=== PATIENT | female | born 1960 | race Caucasian/White ===

== ENCOUNTER 2018-03-10 12:15 | Inpatient (IN) | payer BC ==
[2018-03-10] MEDS ORDERED: Acetaminophen/oxyCODONE 325-5 MG Tab PO ONE (12:18)
[2018-03-10] MEDS ORDERED: Acetaminophen 325 MG Tab PO PRN (13:00)
[2018-03-10] MEDS ORDERED: Docusate Sodium 100 MG Cap PO PRN (13:00)
[2018-03-10] MEDS ORDERED: Ondansetron 4 MG Tab.DIS PO PRN (13:00)
[2018-03-10] MEDS: Enoxaparin 40 MG/0.4 ML Syringe SUBCUT SCH (13:58)
[2018-03-10] MEDS: Vancomycin 1.5 GM in Sodium Chloride 0.9% 500 ML IV SCH ×2 (14:00→20:07)
[2018-03-10] MEDS: Acetaminophen/oxyCODONE 325-5 MG Tab PO PRN ×2 (16:22→20:14)
[2018-03-10] MEDS: metFORMIN 500 MG Tab PO SCH (17:21)
[2018-03-10] MEDS: Ferrous Sulfate 324 MG Tab.EC PO SCH (17:21)
[2018-03-10] MEDS: amLODIPine 2.5 MG Tab PO SCH (20:08)
[2018-03-10] MEDS: Aspirin 81 MG Tab.EC PO SCH (20:08)
--- NOTE | 2018-03-10 21:35 | PCM.HP ---
H&P History of Present Illness - General Date of Service: 03/10/18 Admit Problem/Dx: Admission Diagnosis/Problem Admission Diagnosis/Problem Knee joint operation Source of Information: Patient History Limitations: Reports: No Limitations - History of Present Illness Initial Comments - Free Text/Narative: Patient admitted swing bed from [facility] following a knee surgery. Patient was to have a total knee replacement done. Incision had been made and infection was noted in the joint. Cultures were taken and grew out staph. A spacer was placer in the knee. PICC line placed. Started on IV Vancomycin and is to continue this for 6 weeks with plans for knee replacement at a later date. Location: Reports: Lower Extremity, Left Quality: Reports: Throbbing Severity: Severe Improves with: Reports: Cold Therapy, Rest Worsens with: Reports: Movement Associated Symptoms: Reports: No Other Symptoms - Related Data Allergies/Adverse Reactions: Allergies Allergy/AdvReac Type Severity Reaction Status Date / Time No Known Allergies Allergy Verified 03/10/18 12:31 Home Medications: Home Meds ALPRAZolam [Xanax] 0.25 mg PO TID PRN 03/10/18 [History] Aspirin [Low Dose Aspirin EC] 81 mg PO BEDTIME 03/10/18 [History] Cholecalciferol (Vitamin D3) [Vitamin D3] 4,000 units PO DAILY 03/10/18 [History ] Citalopram [Citalopram HBr] 20 mg PO DAILY 03/10/18 [History] Cyanocobalamin (Vitamin B-12) [Vitamin B-12] 500 mcg PO DAILY 03/10/18 [History] Flaxseed Oil 1,000 mg PO BEDTIME 03/10/18 [History] Garlic 1,000 mg PO DAILY 03/10/18 [History] Losartan/Hydrochlorothiazide [Losartan-HCTZ 100-12.5 MG] 1 tab PO DAILY [History] Magnesium Gluconate [Magonate] 500 mg PO DAILY 03/10/18 [History] [place]-3/DHA/Epa/Fish Oil [[place] 3 500 Softgel] 1,000 mg PO BEDTIME 03/10/18 [ History] Vit A/C/E/Zinc/Selenium/Copper [Vision Formula Tablet] 1 tab PO DAILY 03/10/18 [ History] amLODIPine [Norvasc] 5 mg PO BEDTIME 03/10/18 [History] metFORMIN [Glucophage] 1,000 mg PO BIDMEALS 03/10/18 [History] oxyCODONE HCl/Acetaminophen [Percocet 5-325 mg Tablet] 1 - 2 tab PO Q4H PRN [History] Past Medical History HEENT History: Reports: Impaired Vision Cardiovascular History: Reports: Heart Murmur, Hypertension, Other (See Below) Other Cardiovascular History: aortic stenosis Gastrointestinal History: Reports: Colon Polyp Musculoskeletal History: Reports: Osteoarthritis Psychiatric History: Reports: Anxiety, Depression Endocrine/Metabolic History: Reports: Diabetes, Type II Hematologic History: Reports: Other (See Below) Other Hematologic History: Factor V Leiden - Past Surgical History GI Surgical History: Reports: Colonoscopy Female Surgical History: Reports: Breast Biopsy, D&C Musculoskeletal Surgical History: Reports: Arthroscopic Knee, Knee Replacement Social & Family History - Family History Family Medical History: Noncontributory H&P Review of Systems - Review of Systems: Review Of Systems: See Below General: Reports: Weakness, Fatigue. Denies: Fever, Chills, Malaise HEENT: Reports: No Symptoms Pulmonary: Denies: Shortness of Breath, Cough Cardiovascular: Denies: Chest Pain, Edema, Lightheadedness Gastrointestinal: Reports: Constipation (patient states was having issues with constipation, has been taking stool softener and now today has had 3 stools). Denies: Abdominal Pain, Nausea, Vomiting Genitourinary: Reports: No Symptoms Musculoskeletal: Reports: Joint Pain Skin: Reports: Other (incision to right knee, bandages intact) Psychiatric: Reports: No Symptoms Neurological: Reports: No Symptoms Exam - Exam Exam: See Below - Vital Signs Vital Signs: Last Vital Signs Temp 97.9 F 03/10/18 20:00 Pulse 97 03/10/18 20:00 Resp 20 03/10/18 20:00 BP 146/73 H 03/10/18 20:08 Pulse Ox 98 03/10/18 20:00 Weight: 232 lb 4.8 oz - Exam General: Alert, Oriented HEENT: Conjunctiva Clear, Mucosa Moist & [place], Posterior Pharynx Clear Neck: Supple Lungs: Clear to Auscultation, Normal Respiratory Effort Cardiovascular: Regular Rate, Regular Rhythm GI/Abdominal Exam: Normal Bowel Sounds, Soft, Non-Tender Extremities: Limited Range of Motion, Other (right knee has considerable swelling to the right knee) Skin: Incision Psychiatric: Alert, Normal Affect, Normal Mood - Patient Data Lab Results Last 24 hrs: Laboratory Results - last 24 hr 03/10/18 Range/Units 17:12 POC Glucose 98 (75-105) mg/dl - Problem List (1) S/P right knee surgery SNOMED Code(s): 486933513 ICD Code: Z98.890 - OTHER SPECIFIED POSTPROCEDURAL STATES Status: Acute Priority: High Current Visit: Yes Problem List Initiated/Reviewed/Updated: Yes Orders Last 24hrs: Active Orders 24 hr Category Date Time Status Patient Status [ADT] Routine ADT 03/10/18 13:00 Active Communication Order [RC] .PRN Care 03/10/18 13:00 Active Cooling Warming Measures [RC] .PRN Care 03/10/18 13:00 Active Oxygen Therapy [RC] .PRN Care 03/10/18 13:00 Active Up With Assistance [RC] .PRN Care 03/10/18 13:00 Active Vital Signs [RC] 0800,2000 Care 03/10/18 13:00 Active Wound Care [RC] Q3D Care 03/10/18 13:00 Active PT Evaluation and Treatment [CONS] Routine Cons 03/10/18 13:00 Active Consistent Carbohydrate Diet [DIET] Diet 03/10/18 Dinner Active ALPRAZolam [Xanax] Med 03/10/18 13:10 Active 0.25 mg PO TID PRN Acetaminophen [Tylenol] Med 03/10/18 13:00 Active 650 mg PO Q4H PRN Acetaminophen/oxyCODONE [Percocet 325-5 MG] Med 03/10/18 13:00 Active 2 tab PO Q4H PRN Aspirin [Halfprin] Med 03/10/18 20:00 Active 81 mg PO BEDTIME Cholecalciferol (Vitamin D3) [Vitamin D3] Med 03/11/18 08:00 Active 4,000 units PO DAILY Citalopram [Celexa] Med 03/11/18 08:00 Active 20 mg PO DAILY Cyanocobalamin (Vitamin B12) [Vitamin B12] Med 03/11/18 08:00 Active 500 mcg PO DAILY Cyclobenzaprine [Flexeril] Med 03/10/18 13:00 Active 5 mg PO TID PRN Docusate Sodium [Colace] Med 03/10/18 13:00 Active 100 mg PO DAILY PRN Enoxaparin [Lovenox] Med 03/10/18 13:00 Active 40 mg SUBCUT Q24H Ferrous Sulfate Med 03/10/18 17:30 Active 324 mg PO BIDMEALS Heparin Sodium [Heparin Lock Flush 100 Units/ML] Med 03/10/18 21:00 Active 300 units FLUSH Q8H Losartan [Cozaar] Med 03/11/18 08:00 Active 100 mg PO DAILY Magnesium Oxide Med 03/11/18 08:00 Active 500 mg PO DAILY Ondansetron [Zofran ODT] Med 03/10/18 13:00 Active 4 mg PO Q4H PRN Vancomycin 1.5 gm Med 03/10/18 13:00 Active Sodium Chloride 0.9% [Normal Saline] 500 ml IV Q8H amLODIPine [Norvasc] Med 03/10/18 20:00 Active 5 mg PO BEDTIME hydroCHLOROthiazide Med 03/11/18 08:00 Active 12.5 mg PO DAILY metFORMIN [Glucophage] Med 03/10/18 17:30 Active 1,000 mg PO BIDMEALS Ice Therapy [OM.PC] Routine Oth 03/10/18 13:00 Ordered Resuscitation Status Routine Resus Stat 03/10/18 13:00 Ordered Medication Orders Acetaminophen (Tylenol) 650 mg PO Q4H PRN PRN Reason: Pain (Mild 1-3)/fever Alprazolam (Xanax) 0.25 mg PO TID PRN PRN Reason: Anxiety Amlodipine Besylate (Norvasc) 5 mg PO BEDTIME [facility] Last Admin: 03/10/18 20:08 Dose: 5 mg Aspirin (Halfprin) 81 mg PO BEDTIME [facility]UL[facility] Last Admin: 03/10/18 20:08 Dose: 81 mg Cholecalciferol (Vitamin D3) 4,000 units PO DAILY [facility] Citalopram Hydrobromide (Celexa) 20 mg PO DAILY [facility] Cyanocobalamin (Vitamin B12) 500 mcg PO DAILY [facility] Cyclobenzaprine HCl (Flexeril) 5 mg PO TID PRN PRN Reason: Spasms Docusate Sodium (Colace) 100 mg PO DAILY PRN PRN Reason: Constipation Enoxaparin Sodium (Lovenox) 40 mg SUBCUT Q24H [facility] Last Admin: 03/10/18 13:58 Dose: 40 mg Ferrous Sulfate (Ferrous Sulfate) 324 mg PO BIDMEALS [facility] Last Admin: 03/10/18 17:21 Dose: 324 mg Heparin Sodium (Porcine) (Heparin Lock Flush 100 Units/Ml) 300 units FLUSH Q8H [facility] Last Admin: 03/10/18 20:08 Dose: 300 units Hydrochlorothiazide (Hydrochlorothiazide) 12.5 mg PO DAILY [facility] Vancomycin HCl 1.5 gm/ Sodium (Chloride) 500 mls @ 250 mls/hr IV Q8H [facility] Last Admin: 03/10/18 20:07 Dose: 250 mls/hr Admin: 03/10/18 14:00 Dose: 250 mls/hr Losartan Potassium (Cozaar) 100 mg PO DAILY [facility] Magnesium Oxide (Magnesium Oxide) 500 mg PO DAILY [facility] Metformin HCl (Glucophage) 1,000 mg PO BIDMEALS [facility] Last Admin: 03/10/18 17:21 Dose: 1,000 mg Ondansetron HCl (Zofran Odt) 4 mg PO Q4H PRN PRN Reason: nausea, able to take PO Oxycodone/Acetaminophen (Percocet 325-5 Mg) 2 tab PO Q4H PRN PRN Reason: Pain (moderate 4-6) Last Admin: 03/10/18 20:14 Dose: 2 tab Admin: 03/10/18 16:22 Dose: 2 tab Assessment/Plan Comment:: Right Knee Revision with spacer placement Plan: Physical Therapy evaluation and treatment IV Vancomycin every 8 hours Percocet for pain control
[2018-03-10] MEDS: Cyclobenzaprine 10 MG Tab PO PRN (21:43)
[2018-03-11] MEDS: Acetaminophen/oxyCODONE 325-5 MG Tab PO PRN ×6 (00:32→23:57)
[2018-03-11] MEDS: Vancomycin 1.5 GM in Sodium Chloride 0.9% 500 ML IV SCH ×4 (05:55→21:49)
[2018-03-11] MEDS: Citalopram 10 MG Tab PO SCH (08:00)
[2018-03-11] MEDS: Ferrous Sulfate 324 MG Tab.EC PO SCH ×2 (08:01→16:32)
[2018-03-11] MEDS: metFORMIN 500 MG Tab PO SCH ×2 (08:01→16:32)
[2018-03-11] MEDS: Hydrochlorothiazide 12.5 MG Cap PO SCH (08:01)
[2018-03-11] MEDS: Losartan 100 MG Tab PO SCH (08:01)
[2018-03-11] MEDS: Cholecalciferol (Vitamin D3) 1,000 Unit Tab PO SCH (08:01)
[2018-03-11] MEDS: Cyanocobalamin (Vitamin B12) 100 MCG Tab PO SCH (08:01)
[2018-03-11 13:02] LABS: CHLORIDE,CL 98 mEq/L (98-106); SODIUM,NA 134 mEq/L (136-145)
[2018-03-11] MEDS: Enoxaparin 40 MG/0.4 ML Syringe SUBCUT SCH ×2 (14:25→14:33)
[2018-03-11] MEDS: amLODIPine 2.5 MG Tab PO SCH (19:29)
[2018-03-11] MEDS: Cyclobenzaprine 10 MG Tab PO PRN (19:29)
[2018-03-11] MEDS: Aspirin 81 MG Tab.EC PO SCH (19:29)
[2018-03-12] MEDS: Acetaminophen/oxyCODONE 325-5 MG Tab PO PRN ×5 (04:04→22:11)
[2018-03-12] MEDS: Vancomycin 1.5 GM in Sodium Chloride 0.9% 500 ML IV SCH ×3 (06:35→22:08)
[2018-03-12] MEDS: Cyanocobalamin (Vitamin B12) 100 MCG Tab PO SCH (08:41)
[2018-03-12] MEDS: Citalopram 10 MG Tab PO SCH (08:42)
[2018-03-12] MEDS: Ferrous Sulfate 324 MG Tab.EC PO SCH ×2 (08:42→17:13)
[2018-03-12] MEDS: Hydrochlorothiazide 12.5 MG Cap PO SCH (08:43)
[2018-03-12] MEDS: Losartan 100 MG Tab PO SCH (08:44)
[2018-03-12] MEDS: metFORMIN 500 MG Tab PO SCH ×2 (08:45→17:12)
[2018-03-12] MEDS: Cholecalciferol (Vitamin D3) 1,000 Unit Tab PO SCH (08:45)
[2018-03-12] MEDS: Enoxaparin 40 MG/0.4 ML Syringe SUBCUT SCH (14:04)
[2018-03-12] MEDS: ALPRAZolam 0.25 MG Tab PO PRN (16:12)
[2018-03-12] MEDS: Aspirin 81 MG Tab.EC PO SCH (19:56)
[2018-03-12] MEDS: amLODIPine 2.5 MG Tab PO SCH (19:57)
[2018-03-12] MEDS: Cyclobenzaprine 10 MG Tab PO PRN (20:02)
[2018-03-13] MEDS: ALPRAZolam 0.25 MG Tab PO PRN ×2 (00:57→09:08)
[2018-03-13] MEDS: Acetaminophen/oxyCODONE 325-5 MG Tab PO PRN ×5 (05:00→23:50)
[2018-03-13] MEDS: Vancomycin 1.5 GM in Sodium Chloride 0.9% 500 ML IV SCH ×3 (06:00→21:42)
[2018-03-13] MEDS: Ferrous Sulfate 324 MG Tab.EC PO SCH ×2 (07:49→17:18)
[2018-03-13] MEDS: Losartan 100 MG Tab PO SCH (07:49)
[2018-03-13] MEDS: Citalopram 10 MG Tab PO SCH (07:49)
[2018-03-13] MEDS: metFORMIN 500 MG Tab PO SCH ×2 (07:50→17:17)
[2018-03-13] MEDS: Hydrochlorothiazide 12.5 MG Cap PO SCH (07:50)
[2018-03-13] MEDS: Cholecalciferol (Vitamin D3) 1,000 Unit Tab PO SCH (07:51)
[2018-03-13] MEDS: Cyanocobalamin (Vitamin B12) 100 MCG Tab PO SCH (07:51)
[2018-03-13] MEDS: Enoxaparin 40 MG/0.4 ML Syringe SUBCUT SCH (13:53)
[2018-03-13] MEDS: Aspirin 81 MG Tab.EC PO SCH (19:30)
[2018-03-13] MEDS: amLODIPine 2.5 MG Tab PO SCH (19:30)
[2018-03-14] MEDS: Vancomycin 1.5 GM in Sodium Chloride 0.9% 500 ML IV SCH ×3 (06:09→21:43)
[2018-03-14] MEDS: Citalopram 10 MG Tab PO SCH (07:41)
[2018-03-14] MEDS: Cyanocobalamin (Vitamin B12) 100 MCG Tab PO SCH (07:41)
[2018-03-14] MEDS: metFORMIN 500 MG Tab PO SCH ×2 (07:41→17:14)
[2018-03-14] MEDS: Losartan 100 MG Tab PO SCH (07:41)
[2018-03-14] MEDS: Cholecalciferol (Vitamin D3) 1,000 Unit Tab PO SCH (07:41)
[2018-03-14] MEDS: Ferrous Sulfate 324 MG Tab.EC PO SCH ×2 (07:42→17:00)
[2018-03-14] MEDS: Hydrochlorothiazide 12.5 MG Cap PO SCH (07:42)
[2018-03-14] MEDS: ALPRAZolam 0.25 MG Tab PO PRN ×2 (07:49→17:15)
[2018-03-14] MEDS: Acetaminophen/oxyCODONE 325-5 MG Tab PO PRN ×4 (09:39→23:05)
[2018-03-14] MEDS: Enoxaparin 40 MG/0.4 ML Syringe SUBCUT SCH (14:15)
[2018-03-14] MEDS: Aspirin 81 MG Tab.EC PO SCH (20:03)
[2018-03-14] MEDS: amLODIPine 2.5 MG Tab PO SCH (20:03)
[2018-03-14] MEDS: Cyclobenzaprine 10 MG Tab PO PRN (21:43)
[2018-03-15] MEDS: Vancomycin 1.5 GM in Sodium Chloride 0.9% 500 ML IV SCH ×3 (05:58→21:56)
[2018-03-15] MEDS: metFORMIN 500 MG Tab PO SCH ×2 (07:32→17:25)
[2018-03-15] MEDS: Cyanocobalamin (Vitamin B12) 100 MCG Tab PO SCH (07:33)
[2018-03-15] MEDS: Losartan 100 MG Tab PO SCH (07:34)
[2018-03-15] MEDS: Cholecalciferol (Vitamin D3) 1,000 Unit Tab PO SCH (07:34)
[2018-03-15] MEDS: Citalopram 10 MG Tab PO SCH (07:35)
[2018-03-15] MEDS: Hydrochlorothiazide 12.5 MG Cap PO SCH (07:35)
[2018-03-15] MEDS: Acetaminophen/oxyCODONE 325-5 MG Tab PO PRN ×3 (07:35→19:56)
[2018-03-15] MEDS: Ferrous Sulfate 324 MG Tab.EC PO SCH ×2 (07:35→17:29)
[2018-03-15 13:43] LABS: CHLORIDE,CL 99 mEq/L (98-106); SODIUM,NA 134 mEq/L (136-145)
[2018-03-15] MEDS: Enoxaparin 40 MG/0.4 ML Syringe SUBCUT SCH (14:36)
[2018-03-15] MEDS: amLODIPine 2.5 MG Tab PO SCH (19:50)
[2018-03-15] MEDS: Aspirin 81 MG Tab.EC PO SCH (19:50)
[2018-03-15] MEDS: ALPRAZolam 0.25 MG Tab PO PRN (19:55)
[2018-03-16] MEDS: Vancomycin 1.5 GM in Sodium Chloride 0.9% 500 ML IV SCH ×3 (06:05→21:47)
[2018-03-16] MEDS: Acetaminophen/oxyCODONE 325-5 MG Tab PO PRN ×3 (08:06→22:09)
[2018-03-16] MEDS: Cyanocobalamin (Vitamin B12) 100 MCG Tab PO SCH (08:07)
[2018-03-16] MEDS: Hydrochlorothiazide 12.5 MG Cap PO SCH (08:07)
[2018-03-16] MEDS: Cholecalciferol (Vitamin D3) 1,000 Unit Tab PO SCH (08:08)
[2018-03-16] MEDS: Losartan 100 MG Tab PO SCH (08:08)
[2018-03-16] MEDS: metFORMIN 500 MG Tab PO SCH ×2 (08:09→17:09)
[2018-03-16] MEDS: Citalopram 10 MG Tab PO SCH (08:09)
[2018-03-16] MEDS: Ferrous Sulfate 324 MG Tab.EC PO SCH ×2 (08:10→18:39)
[2018-03-16] MEDS: Enoxaparin 40 MG/0.4 ML Syringe SUBCUT SCH (13:37)
[2018-03-16] MEDS: ALPRAZolam 0.25 MG Tab PO PRN ×2 (13:54→22:07)
[2018-03-16] MEDS: Aspirin 81 MG Tab.EC PO SCH (19:23)
[2018-03-16] MEDS: amLODIPine 2.5 MG Tab PO SCH (19:23)
[2018-03-17] MEDS: Vancomycin 1.5 GM in Sodium Chloride 0.9% 500 ML IV SCH ×3 (05:54→22:09)
[2018-03-17] MEDS: Cholecalciferol (Vitamin D3) 1,000 Unit Tab PO SCH (07:37)
[2018-03-17] MEDS: Cyanocobalamin (Vitamin B12) 100 MCG Tab PO SCH (07:38)
[2018-03-17] MEDS: Citalopram 10 MG Tab PO SCH (07:39)
[2018-03-17] MEDS: metFORMIN 500 MG Tab PO SCH ×2 (07:39→17:25)
[2018-03-17] MEDS: Hydrochlorothiazide 12.5 MG Cap PO SCH (07:40)
[2018-03-17] MEDS: Losartan 100 MG Tab PO SCH (07:40)
[2018-03-17] MEDS: ALPRAZolam 0.25 MG Tab PO PRN ×3 (07:47→22:09)
[2018-03-17] MEDS: Ferrous Sulfate 324 MG Tab.EC PO SCH ×2 (07:47→17:25)
[2018-03-17] MEDS: Acetaminophen/oxyCODONE 325-5 MG Tab PO PRN ×4 (08:41→22:09)
[2018-03-17] MEDS: Enoxaparin 40 MG/0.4 ML Syringe SUBCUT SCH (13:09)
[2018-03-17] MEDS: Aspirin 81 MG Tab.EC PO SCH (19:39)
[2018-03-17] MEDS: amLODIPine 2.5 MG Tab PO SCH (19:39)
[2018-03-18] MEDS: Acetaminophen/oxyCODONE 325-5 MG Tab PO PRN ×4 (06:00→20:18)
[2018-03-18] MEDS: ALPRAZolam 0.25 MG Tab PO PRN ×2 (06:00→20:18)
[2018-03-18] MEDS: Vancomycin 1.5 GM in Sodium Chloride 0.9% 500 ML IV SCH ×3 (06:03→21:43)
[2018-03-18] MEDS: Cyanocobalamin (Vitamin B12) 100 MCG Tab PO SCH (08:01)
[2018-03-18] MEDS: Losartan 100 MG Tab PO SCH (08:01)
[2018-03-18] MEDS: Cholecalciferol (Vitamin D3) 1,000 Unit Tab PO SCH (08:03)
[2018-03-18] MEDS: Citalopram 10 MG Tab PO SCH (08:03)
[2018-03-18] MEDS: metFORMIN 500 MG Tab PO SCH ×2 (08:04→17:10)
[2018-03-18] MEDS: Hydrochlorothiazide 12.5 MG Cap PO SCH (08:04)
[2018-03-18] MEDS: Ferrous Sulfate 324 MG Tab.EC PO SCH ×2 (08:04→17:11)
[2018-03-18] MEDS: Enoxaparin 40 MG/0.4 ML Syringe SUBCUT SCH (13:34)
[2018-03-18] MEDS: Aspirin 81 MG Tab.EC PO SCH (19:57)
[2018-03-18] MEDS: amLODIPine 2.5 MG Tab PO SCH (19:57)
[2018-03-19] MEDS: Acetaminophen/oxyCODONE 325-5 MG Tab PO PRN ×5 (00:30→21:40)
[2018-03-19] MEDS: Vancomycin 1.5 GM in Sodium Chloride 0.9% 500 ML IV SCH ×3 (06:07→21:40)
[2018-03-19] MEDS: metFORMIN 500 MG Tab PO SCH ×2 (08:05→17:23)
[2018-03-19] MEDS: Citalopram 10 MG Tab PO SCH (08:05)
[2018-03-19] MEDS: Ferrous Sulfate 324 MG Tab.EC PO SCH ×2 (08:06→17:23)
[2018-03-19] MEDS: Losartan 100 MG Tab PO SCH (08:06)
[2018-03-19] MEDS: Hydrochlorothiazide 12.5 MG Cap PO SCH (08:07)
[2018-03-19] MEDS: Cholecalciferol (Vitamin D3) 1,000 Unit Tab PO SCH (08:07)
[2018-03-19] MEDS: Cyanocobalamin (Vitamin B12) 100 MCG Tab PO SCH (08:08)
[2018-03-19] MEDS: ALPRAZolam 0.25 MG Tab PO PRN ×2 (08:15→21:40)
[2018-03-19 13:43] LABS: CHLORIDE,CL 97 mEq/L (98-106); SODIUM,NA 135 mEq/L (136-145)
[2018-03-19] MEDS: Enoxaparin 40 MG/0.4 ML Syringe SUBCUT SCH (14:14)
[2018-03-19] MEDS: amLODIPine 2.5 MG Tab PO SCH (20:09)
[2018-03-19] MEDS: Aspirin 81 MG Tab.EC PO SCH (20:09)
[2018-03-20] MEDS: Acetaminophen/oxyCODONE 325-5 MG Tab PO PRN ×2 (04:52→10:14)
[2018-03-20] MEDS: ALPRAZolam 0.25 MG Tab PO PRN ×2 (04:52→17:01)
[2018-03-20] MEDS: Vancomycin 1.5 GM in Sodium Chloride 0.9% 500 ML IV SCH ×2 (05:00→14:08)
[2018-03-20] MEDS: Hydrochlorothiazide 12.5 MG Cap PO SCH (07:57)
[2018-03-20] MEDS: metFORMIN 500 MG Tab PO SCH (07:57)
[2018-03-20] MEDS: Losartan 100 MG Tab PO SCH (07:57)
[2018-03-20] MEDS: Citalopram 10 MG Tab PO SCH (07:57)
[2018-03-20] MEDS: Ferrous Sulfate 324 MG Tab.EC PO SCH ×2 (07:58→17:01)
[2018-03-20] MEDS: Cholecalciferol (Vitamin D3) 1,000 Unit Tab PO SCH (07:58)
[2018-03-20] MEDS: Cyanocobalamin (Vitamin B12) 100 MCG Tab PO SCH (08:00)
[2018-03-20] MEDS ORDERED: Iopamidol 755 Mg/ML 100 ML Bottle IVPUSH ONE (09:16)
[2018-03-20 09:21] LABS: CHLORIDE,CL 98 mEq/L (98-106); SODIUM,NA 136 mEq/L (136-145)
[2018-03-20] MEDS ORDERED: Potassium Chloride 10 MEQ Tab.ER PO ONE (10:24)
--- NOTE | 2018-03-20 12:43 | PCM.PN ---
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 DDimer obtained which was elevated. Patient sent for CT PE rule out. Patient reports her only symptoms is mild SOB, worse with exertion. Functional Status: Reports: Pain Controlled - Review of Systems General: Reports: Fatigue. Denies: Fever HEENT: Reports: No Symptoms Pulmonary: Reports: Shortness of Breath, Cough, Sputum. Denies: Pleuritic Chest Pain, Hemoptysis, Wheezing Cardiovascular: Reports: Dyspnea on Exertion. Denies: Chest Pain, Palpitations , Orthopnea, PND, Edema, Lightheadedness Gastrointestinal: Denies: Abdominal Pain, Diarrhea, Nausea, Vomiting Genitourinary: Denies: Dysuria Musculoskeletal: Denies: Neck Pain - Patient Data Vitals - Most Recent: Last Vital Signs Temp 36.0 C 03/20/18 07:54 Pulse 99 03/20/18 07:54 Resp 20 03/20/18 07:54 BP 157/80 H 03/20/18 07:57 Pulse Ox 92 L 03/20/18 07:54 Weight - Most Recent: 105.143 kg Lab Results Last 24 Hours: Laboratory Results - last 24 hr 03/19/18 03/20/18 03/20/18 Range/Units 13:25 07:56 08:10 WBC 3.1 L (5.0-10.0) 10^3/uL RBC 3.13 L (4.00-5.50) 10^6/uL Hgb 9.7 L (12.0-16.0) g/dL Hct 29.4 L (37.0-47.0) % MCV 93.9 (82.0-94.0) fL MCH 31.0 (27.0-32.0) pg MCHC 33.0 (33.0-38.0) g/dL RDW Coeff of Jacky 14.3 (11.0-15.0) % Plt Count 239 (150-400) 10^3/uL Neut % (Auto) 62.7 (35-85) % Lymph % (Auto) 23.4 (10-55) % [place] % (Auto) 11.7 (0-16) % Eos % (Auto) 1.9 (0-5) % Baso % (Auto) 0.3 (0-3) % Neut # (Auto) 1.93 (1.80-7.00) 10^3/uL Lymph # (Auto) 0.72 L (1.00-4.80) 10^3/uL [place] # (Auto) 0.36 (0.00-0.80) 10^3/uL Eos # (Auto) 0.06 (0.00-0.45) 10^3/uL Baso # (Auto) 0.01 10^3/uL D-Dimer, Quantitative (0.00-0.50) Sodium 135 L (136-145) mEq/L Potassium 3.0 L D (3.5-5.0) mEq/L Chloride 97 L (98-106) mEq/L Carbon Dioxide 28 (21-32) mmol/L BUN 5 L (7-18) mg/dL Creatinine 0.7 (0.6-1.0) mg/dL Est Cr Clr Drug Dosing 77.87 mL/min Estimated GFR (MDRD) > 60 (>=60) mL/min Glucose 123 H (75-99) mg/dL POC Glucose 125 H (75-105) mg/dl Calcium 7.9 L (8.4-10.1) mg/dL Vancomycin Trough 18.9 (10-20) ug/mL 03/20/18 03/20/18 Range/Units 08:10 08:20 WBC (5.0-10.0) 10^3/uL RBC (4.00-5.50) 10^6/uL Hgb (12.0-16.0) g/dL Hct (37.0-47.0) % MCV (82.0-94.0) fL MCH (27.0-32.0) pg MCHC (33.0-38.0) g/dL RDW Coeff of Jacky (11.0-15.0) % Plt Count (150-400) 10^3/uL Neut % (Auto) (35-85) % Lymph % (Auto) (10-55) % [place] % (Auto) (0-16) % Eos % (Auto) (0-5) % Baso % (Auto) (0-3) % Neut # (Auto) (1.80-7.00) 10^3/uL Lymph # (Auto) (1.00-4.80) 10^3/uL [place] # (Auto) (0.00-0.80) 10^3/uL Eos # (Auto) (0.00-0.45) 10^3/uL Baso # (Auto) 10^3/uL D-Dimer, Quantitative 1.45 H (0.00-0.50) Sodium 136 (136-145) mEq/L Potassium 3.2 L (3.5-5.0) mEq/L Chloride 98 (98-106) mEq/L Carbon Dioxide 27 (21-32) mmol/L BUN 5 L (7-18) mg/dL Creatinine 0.6 (0.6-1.0) mg/dL Est Cr Clr Drug Dosing 90.84 mL/min Estimated GFR (MDRD) > 60 (>=60) mL/min Glucose 121 H (75-99) mg/dL POC Glucose (75-105) mg/dl Calcium 7.8 L (8.4-10.1) mg/dL Vancomycin Trough (10-20) ug/mL Med Orders - Current: Current Medications Acetaminophen (Tylenol) 650 mg PO Q4H PRN PRN Reason: Pain (Mild 1-3)/fever Last Admin: 03/16/18 19:23 Dose: 650 mg Alprazolam (Xanax) 0.25 mg PO TID PRN PRN Reason: Anxiety Last Admin: 03/20/18 04:52 Dose: 0.25 mg Amlodipine Besylate (Norvasc) 5 mg PO BEDTIME [facility] Last Admin: 03/19/18 20:09 Dose: 5 mg Aspirin (Halfprin) 81 mg PO BEDTIME [facility] Last Admin: 03/19/18 20:09 Dose: 81 mg Cholecalciferol (Vitamin D3) 4,000 units PO DAILY [facility] Last Admin: 03/20/18 07:58 Dose: 4,000 units Citalopram Hydrobromide (Celexa) 20 mg PO DAILY [facility] Last Admin: 03/20/18 07:57 Dose: 20 mg Cyanocobalamin (Vitamin B12) 500 mcg PO DAILY [facility] Last Admin: 03/20/18 08:00 Dose: Not Given Cyclobenzaprine HCl (Flexeril) 5 mg PO TID PRN PRN Reason: Spasms Last Admin: 03/14/18 21:43 Dose: 5 mg Docusate Sodium (Colace) 100 mg PO DAILY PRN PRN Reason: Constipation Enoxaparin Sodium (Lovenox) 40 mg SUBCUT DAILY@1400 [facility] Last Admin: 03/19/18 14:14 Dose: 40 mg Ferrous Sulfate (Ferrous Sulfate) 324 mg PO BIDMEALS [facility] Last Admin: 03/20/18 07:58 Dose: 324 mg Heparin Sodium (Porcine) (Heparin Lock Flush 100 Units/Ml) 300 units FLUSH 0600 ,1400,2200 [facility] Last Admin: 03/20/18 05:07 Dose: 300 units Hydrochlorothiazide (Hydrochlorothiazide) 12.5 mg PO DAILY [facility] Last Admin: 03/20/18 07:57 Dose: 12.5 mg Vancomycin HCl 1.5 gm/ Sodium (Chloride) 500 mls @ 250 mls/hr IV 0600,1400, 2200 [facility] Last Admin: 03/20/18 05:00 Dose: 250 mls/hr Losartan Potassium (Cozaar) 100 mg PO DAILY [facility] Last Admin: 03/20/18 07:57 Dose: 100 mg Magnesium Oxide (Magnesium Oxide) 500 mg PO DAILY [facility] Last Admin: 03/20/18 07:58 Dose: 500 mg Metformin HCl (Glucophage) 1,000 mg PO BIDMEALS [facility] Last Admin: 03/20/18 07:57 Dose: 1,000 mg Ondansetron HCl (Zofran Odt) 4 mg PO Q4H PRN PRN Reason: nausea, able to take PO Oxycodone/Acetaminophen (Percocet 325-5 Mg) 2 tab PO Q4H PRN PRN Reason: Pain (moderate 4-6) Last Admin: 03/20/18 10:14 Dose: 2 tab Vancomycin HCl (Pharmacy To Dose - Vancomycin) 1 dose .XX ASDIRECTED [facility] Discontinued Medications Enoxaparin Sodium (Lovenox) 40 mg SUBCUT Q24H [facility] Last Admin: 03/11/18 14:33 Dose: Not Given Heparin Sodium (Porcine) (Heparin Lock Flush 100 Units/Ml) 500 units FLUSH Q8H [facility] Last Admin: 03/10/18 14:58 Dose: Not Given Heparin Sodium (Porcine) (Heparin Lock Flush 100 Units/Ml) 300 units FLUSH Q8H [facility] Last Admin: 03/10/18 16:15 Dose: 300 units Heparin Sodium (Porcine) (Heparin Lock Flush 100 Units/Ml) 300 units FLUSH Q8H [facility] Last Admin: 03/11/18 14:33 Dose: Not Given Vancomycin HCl 1.5 gm/ Sodium (Chloride) 500 mls @ 250 mls/hr IV Q8H [facility] Last Admin: 03/11/18 14:34 Dose: Not Given Iopamidol (Isovue-370 (76%)) 100 ml IVPUSH ONETIME ONE Stop: 03/20/18 09:17 Last Admin: 03/20/18 10:06 Dose: 100 ml Oxycodone/Acetaminophen (Percocet 325-5 Mg) 2 tab PO ONETIME ONE Stop: 03/10/18 12:19 Last Admin: 03/10/18 12:43 Dose: 2 tab Potassium Chloride (Klor-Con 10) 40 meq PO ONETIME ONE Stop: 03/20/18 10:25 Last Admin: 03/20/18 10:47 Dose: 40 meq - Exam General: Alert, Oriented Lungs: Clear to Auscultation, Normal Respiratory Effort. No: Crackles, Rales, Rhonchi Cardiovascular: Regular Rate, Regular Rhythm, Other (systolic murmur) GI/Abdominal Exam: Soft Peripheral Pulses: 2+: Radial (L), Radial (R) Skin: Warm, Dry, Intact Wound/Incisions: Healing Well Neurological: No New Focal Deficit Psy/Mental Status: Alert, Normal Affect, Anxious - Problem List Review Problem List Initiated/Reviewed/Updated: Yes - My Orders Last 24 Hours: My Active Orders 03/20/18 09:10 CTA Chest W WO Contrast [Ang Chest] [CT] Routine - Plan Plan:: Right Knee Revision with spacer placement Plan: Physical Therapy evaluation and treatment IV Vancomycin every 8 hours Percocet for pain control 03/20/18 CTA Chest shows bilateral pleural effusion and infiltrate consistent with pneumonia. Begin IV levofloxacin for pneumonia and refer to hospitalist service for thoracentesis.
[2018-03-20] MEDS ORDERED: Levofloxacin/Dextrose 5%-Water 750 MG in Premix Bag 1 BAG IV SCH (13:00)
[2018-03-20] MEDS: Enoxaparin 40 MG/0.4 ML Syringe SUBCUT SCH (14:08)
[2018-03-20] MEDS ORDERED: Furosemide 20 MG/2 ML VIAL IVPUSH ONE (16:40)
== END 2018-03-20 18:42 | DRG 349 ==
LOC: CC.MS 12:15
PROVIDERS: ADMIT Family Medicine; ATTEND Family Medicine
DX: T84.54XA Infection and inflammatory reaction due to internal left knee prosthesis, initial encounter (principal); J18.9 Pneumonia, unspecified organism; K59.00 Constipation, unspecified; I10 Essential (primary) hypertension; E11.9 Type 2 diabetes mellitus without complications; D68.51 Activated protein C resistance; H54.7 Unspecified visual loss; I35.0 Nonrheumatic aortic (valve) stenosis; F32.9 Major depressive disorder, single episode, unspecified; F41.9 Anxiety disorder, unspecified; Z79.899 Other long term (current) drug therapy; Z79.82 Long term (current) use of aspirin; Y83.8 Other surgical procedures as the cause of abnormal reaction of the patient, or of later complication, without mention of misadventure at the time of the procedure
CPT/HCPCS: 36415; 71275; 80048; 80202; 82962; 85025; 85379; 97110-GP; 97116-GP; 97161-GP; 97530-GP; A9270-GY; J1642; J1650; J1940; J1956; J3370; J7040; Q9967

== ENCOUNTER 2018-03-20 18:52 | Inpatient (IN) | payer BC ==
[2018-03-20] MEDS ORDERED: Cyclobenzaprine 10 MG Tab PO PRN (21:09)
[2018-03-20] MEDS ORDERED: Docusate Sodium 100 MG Cap PO PRN (21:09)
[2018-03-20] MEDS ORDERED: Enoxaparin 40 MG/0.4 ML Syringe SUBCUT SCH (21:30)
[2018-03-20] MEDS ORDERED: Levofloxacin 500 MG Tab PO SCH (21:30)
[2018-03-20] MEDS: Vancomycin 1.5 GM in Sodium Chloride 0.9% 500 ML IV SCH (22:16)
[2018-03-20] MEDS: ALPRAZolam 0.25 MG Tab PO PRN (22:41)
[2018-03-20] MEDS: Acetaminophen/oxyCODONE 325-5 MG Tab PO PRN (22:41)
[2018-03-21] MEDS: Acetaminophen/oxyCODONE 325-5 MG Tab PO PRN ×3 (05:28→21:38)
[2018-03-21] MEDS: Vancomycin 1.5 GM in Sodium Chloride 0.9% 500 ML IV SCH ×3 (05:35→21:36)
[2018-03-21 07:24] LABS: CHLORIDE,CL 96 mEq/L (98-106); SODIUM,NA 133 mEq/L (136-145)
[2018-03-21] MEDS: Losartan 100 MG Tab PO SCH (07:41)
[2018-03-21] MEDS: Cholecalciferol (Vitamin D3) 1,000 Unit Tab PO SCH (07:41)
[2018-03-21] MEDS: Ferrous Sulfate 324 MG Tab.EC PO SCH ×2 (07:42→16:46)
[2018-03-21] MEDS: Hydrochlorothiazide 12.5 MG Cap PO SCH (07:42)
[2018-03-21] MEDS: Citalopram 10 MG Tab PO SCH (07:42)
[2018-03-21] MEDS ORDERED: metFORMIN 500 MG Tab PO SCH (08:00)
[2018-03-21] MEDS ORDERED: Furosemide 20 MG/2 ML VIAL IVPUSH ONE (08:00)
--- NOTE | 2018-03-21 08:01 | PCM.DCSUM1 ---
Discharge Summary - Hospital Course Free Text/Narrative:: Patient swing bed status changed to acute inpatient. She began to develop dyspnea and ddimer was ordered and found to be elevated. A CTA was conducted finding pleural effusions and likely pneumonia. Diagnosis: Stroke: No - Discharge Data Discharge Date: 03/20/18 Discharge Disposition: Admitted As Inpatient 64 Condition: Good - Patient Summary/Data Consults: Consultations 03/20/18 21:41 PT Evaluation and Treatment [CONS] Routine - Discharge Plan *PRESCRIPTION DRUG MONITORING PROGRAM REVIEWED*: Not Applicable *COPY OF PRESCRIPTION DRUG MONITORING REPORT IN PATIENT CODY: Not Applicable Home Medications: Home Meds ALPRAZolam [Xanax] 0.25 mg PO TID PRN 03/10/18 [History] Aspirin [Low Dose Aspirin EC] 81 mg PO BEDTIME 03/10/18 [History] Cholecalciferol (Vitamin D3) [Vitamin D3] 4,000 units PO DAILY 03/10/18 [History ] Citalopram [Citalopram HBr] 20 mg PO DAILY 03/10/18 [History] Cyanocobalamin (Vitamin B-12) [Vitamin B-12] 500 mcg PO DAILY 03/10/18 [History] Flaxseed Oil 1,000 mg PO BEDTIME 03/10/18 [History] Garlic 1,000 mg PO DAILY 03/10/18 [History] Losartan/Hydrochlorothiazide [Losartan-HCTZ 100-12.5 MG] 1 tab PO DAILY [History] Magnesium Gluconate [Magonate] 500 mg PO DAILY 03/10/18 [History] [place]-3/DHA/Epa/Fish Oil [[place] 3 500 Softgel] 1,000 mg PO BEDTIME 03/10/18 [ History] Vit A/C/E/Zinc/Selenium/Copper [Vision Formula Tablet] 1 tab PO DAILY 03/10/18 [ History] amLODIPine [Norvasc] 5 mg PO BEDTIME 03/10/18 [History] metFORMIN [Glucophage] 1,000 mg PO BIDMEALS 03/10/18 [History] oxyCODONE HCl/Acetaminophen [Percocet 5-325 mg Tablet] 1 - 2 tab PO Q4H PRN [History] - Discharge Summary/Plan Comment DC Time >30 min.: No - General Info Date of Service: 03/20/18 Functional Status: Reports: Pain Controlled - Review of Systems General: Reports: No Symptoms HEENT: Reports: No Symptoms Pulmonary: Reports: Shortness of Breath. Denies: Sputum, Wheezing Cardiovascular: Denies: Chest Pain Gastrointestinal: Denies: Abdominal Pain, Diarrhea, Nausea, Vomiting Genitourinary: Reports: No Symptoms Musculoskeletal: Reports: Joint Pain. Denies: Neck Pain Skin: Denies: No Symptoms Neurological: Denies: No Symptoms Psychiatric: Reports: Anxiety - Patient Data Vitals - Most Recent: Last Vital Signs Temp 36.2 C 03/20/18 19:45 Pulse 90 03/20/18 19:45 Resp 20 03/20/18 19:45 BP 172/87 H 03/21/18 07:41 Pulse Ox 93 L 03/20/18 19:45 Weight - Most Recent: 103.6 kg Lab Results - Last 24 hrs: Laboratory Results - last 24 hr 03/20/18 03/21/18 03/21/18 Range/Units 22:38 06:50 06:50 WBC 2.9 L (5.0-10.0) 10^3/uL RBC 3.12 L (4.00-5.50) 10^6/uL Hgb 9.6 L (12.0-16.0) g/dL Hct 28.7 L (37.0-47.0) % MCV 92.0 (82.0-94.0) fL MCH 30.8 (27.0-32.0) pg MCHC 33.4 (33.0-38.0) g/dL RDW Coeff of Jacky 14.0 (11.0-15.0) % Plt Count 214 (150-400) 10^3/uL Neut % (Auto) 67.8 (35-85) % Lymph % (Auto) 18.0 (10-55) % [place] % (Auto) 12.2 (0-16) % Eos % (Auto) 1.7 (0-5) % Baso % (Auto) 0.3 (0-3) % Neut # (Auto) 1.99 (1.80-7.00) 10^3/uL Lymph # (Auto) 0.53 L (1.00-4.80) 10^3/uL [place] # (Auto) 0.36 (0.00-0.80) 10^3/uL Eos # (Auto) 0.05 (0.00-0.45) 10^3/uL Baso # (Auto) 0.01 10^3/uL Sodium 133 L (136-145) mEq/L Potassium 3.3 L (3.5-5.0) mEq/L Chloride 96 L (98-106) mEq/L Carbon Dioxide 28 (21-32) mmol/L BUN 4 L (7-18) mg/dL Creatinine 0.5 L (0.6-1.0) mg/dL Est Cr Clr Drug Dosing 109.01 mL/min Estimated GFR (MDRD) > 60 (>=60) mL/min Glucose 169 H D (75-99) mg/dL POC Glucose 117 H (75-105) mg/dl Calcium 7.8 L (8.4-10.1) mg/dL Total Bilirubin 0.5 (0.0-1.0) mg/dL AST 20 (15-37) U/L ALT 19 (12-78) U/L Alkaline Phosphatase 119 H (46-116) U/L Total Protein 6.2 L (6.4-8.2) g/dL Albumin 1.8 L (3.4-5.0) g/dL Med Orders - Current: Current Medications Acetaminophen (Tylenol) 650 mg PO Q4H PRN PRN Reason: Pain Alprazolam (Xanax) 0.25 mg PO TID PRN PRN Reason: Anxiety Last Admin: 03/20/18 22:41 Dose: 0.25 mg Aspirin (Halfprin) 81 mg PO BEDTIME [facility] Cholecalciferol (Vitamin D3) 4,000 units PO DAILY [facility] Last Admin: 03/21/18 07:41 Dose: 4,000 units Citalopram Hydrobromide (Celexa) 20 mg PO DAILY [facility] Last Admin: 03/21/18 07:42 Dose: 20 mg Cyanocobalamin (Vitamin B12) 500 mcg PO DAILY [facility] Cyclobenzaprine HCl (Flexeril) 10 mg PO TID PRN PRN Reason: Muscle Spasm Docusate Sodium (Colace) 100 mg PO DAILY PRN PRN Reason: Constipation Enoxaparin Sodium (Lovenox) 40 mg SUBCUT Q24H [facility] Ferrous Sulfate (Ferrous Sulfate) 324 mg PO BIDMEALS [facility] Last Admin: 03/21/18 07:42 Dose: 324 mg Furosemide (Lasix) 20 mg IVPUSH ONETIME ONE Stop: 03/21/18 08:01 Last Admin: 03/21/18 07:41 Dose: 20 mg Heparin Sodium (Porcine) (Heparin Lock Flush 100 Units/Ml) 300 units FLUSH Q8H [facility] Last Admin: 03/21/18 05:29 Dose: 300 units Hydrochlorothiazide (Hydrochlorothiazide) 12.5 mg PO DAILY [facility] Last Admin: 03/21/18 07:42 Dose: 12.5 mg Vancomycin HCl 1.5 gm/ Sodium (Chloride) 500 mls @ 250 mls/hr IV 0600,1400, 2200 [facility] Last Admin: 03/21/18 05:35 Dose: 250 mls/hr Levofloxacin (Levaquin) 500 mg PO Q24H [facility] Losartan Potassium (Cozaar) 100 mg PO DAILY [facility] Last Admin: 03/21/18 07:41 Dose: 100 mg Magnesium Oxide (Magnesium Oxide) 500 mg PO WITHBREAKFAST [facility] Last Admin: 03/21/18 07:42 Dose: 500 mg Ondansetron HCl (Zofran Odt) 4 mg PO Q4H PRN PRN Reason: Nausea/Vomiting Oxycodone/Acetaminophen (Percocet 325-5 Mg) 2 tab PO Q4H PRN PRN Reason: Pain Last Admin: 03/21/18 05:28 Dose: 2 tab Discontinued Medications Enoxaparin Sodium (Lovenox) 40 mg SUBCUT Q24H [facility] Last Admin: 03/20/18 22:59 Dose: Not Given Levofloxacin (Levaquin) 500 mg PO Q24H [facility] Last Admin: 03/20/18 22:59 Dose: Not Given Metformin HCl (Glucophage) 1,000 mg PO BIDMEALS [facility] - Exam Quality Assessment: Reports: Supplemental Oxygen General: Reports: Alert, Oriented Lungs: Reports: Clear to Auscultation, Normal Respiratory Effort Cardiovascular: Reports: Regular Rate, Regular Rhythm, Murmurs GI/Abdominal Exam: Soft Skin: Reports: Warm, Dry, Other (wound to knee healing well, drainage is scant, no s/s infection) Neurological: Reports: No New Focal Deficit Psy/Mental Status: Reports: Alert, Normal Affect, Normal Mood
--- NOTE | 2018-03-21 09:59 | PCM.PN ---
- General Info Date of Service: 03/21/18 Admission Dx/Problem (Free Text): Pneumonia Pleural Effusion Right knee joint infection Functional Status: Reports: Tolerating Diet, Ambulating. Denies: Pain Controlled - Review of Systems General: Reports: Weakness. Denies: Fever, Fatigue, Malaise HEENT: Reports: Rhinitis Pulmonary: Reports: Shortness of Breath, Cough, Sputum Cardiovascular: Reports: Edema. Denies: Chest Pain, Lightheadedness Gastrointestinal: Reports: Abdominal Pain, Nausea. Denies: Constipation, Diarrhea, Vomiting Genitourinary: Reports: No Symptoms Musculoskeletal: Reports: Leg Pain, Joint Pain Skin: Reports: Other (Has incision to right knee from previous spacer placement) Neurological: Reports: No Symptoms Psychiatric: Reports: No Symptoms - Patient Data Vitals - Most Recent: Last Vital Signs Temp 97.7 F 03/21/18 08:00 Pulse 100 03/21/18 08:00 Resp 18 03/21/18 08:00 BP 172/87 H 03/21/18 08:00 Pulse Ox 95 03/21/18 08:00 Weight - Most Recent: 228 lb 6.4 oz Lab Results Last 24 Hours: Laboratory Results - last 24 hr 03/20/18 03/21/18 03/21/18 Range/Units 22:38 06:50 06:50 WBC 2.9 L (5.0-10.0) 10^3/uL RBC 3.12 L (4.00-5.50) 10^6/uL Hgb 9.6 L (12.0-16.0) g/dL Hct 28.7 L (37.0-47.0) % MCV 92.0 (82.0-94.0) fL MCH 30.8 (27.0-32.0) pg MCHC 33.4 (33.0-38.0) g/dL RDW Coeff of Jacky 14.0 (11.0-15.0) % Plt Count 214 (150-400) 10^3/uL Neut % (Auto) 67.8 (35-85) % Lymph % (Auto) 18.0 (10-55) % Lyman % (Auto) 12.2 (0-16) % Eos % (Auto) 1.7 (0-5) % Baso % (Auto) 0.3 (0-3) % Neut # (Auto) 1.99 (1.80-7.00) 10^3/uL Lymph # (Auto) 0.53 L (1.00-4.80) 10^3/uL Lyman # (Auto) 0.36 (0.00-0.80) 10^3/uL Eos # (Auto) 0.05 (0.00-0.45) 10^3/uL Baso # (Auto) 0.01 10^3/uL Sodium 133 L (136-145) mEq/L Potassium 3.3 L (3.5-5.0) mEq/L Chloride 96 L (98-106) mEq/L Carbon Dioxide 28 (21-32) mmol/L BUN 4 L (7-18) mg/dL Creatinine 0.5 L (0.6-1.0) mg/dL Est Cr Clr Drug Dosing 109.01 mL/min Estimated GFR (MDRD) > 60 (>=60) mL/min Glucose 169 H D (75-99) mg/dL POC Glucose 117 H (75-105) mg/dl Calcium 7.8 L (8.4-10.1) mg/dL Total Bilirubin 0.5 (0.0-1.0) mg/dL AST 20 (15-37) U/L ALT 19 (12-78) U/L Alkaline Phosphatase 119 H (46-116) U/L Total Protein 6.2 L (6.4-8.2) g/dL Albumin 1.8 L (3.4-5.0) g/dL Med Orders - Current: Current Medications Acetaminophen (Tylenol) 650 mg PO Q4H PRN PRN Reason: Pain Alprazolam (Xanax) 0.25 mg PO TID PRN PRN Reason: Anxiety Last Admin: 03/20/18 22:41 Dose: 0.25 mg Aspirin (Halfprin) 81 mg PO BEDTIME [facility] Cholecalciferol (Vitamin D3) 4,000 units PO DAILY [facility] Last Admin: 03/21/18 07:41 Dose: 4,000 units Citalopram Hydrobromide (Celexa) 20 mg PO DAILY [facility] Last Admin: 03/21/18 07:42 Dose: 20 mg Cyanocobalamin (Vitamin B12) 500 mcg PO DAILY [facility] Cyclobenzaprine HCl (Flexeril) 10 mg PO TID PRN PRN Reason: Muscle Spasm Docusate Sodium (Colace) 100 mg PO DAILY PRN PRN Reason: Constipation Enoxaparin Sodium (Lovenox) 40 mg SUBCUT Q24H [facility] Ferrous Sulfate (Ferrous Sulfate) 324 mg PO BIDMEALS [facility] Last Admin: 03/21/18 07:42 Dose: 324 mg Heparin Sodium (Porcine) (Heparin Lock Flush 100 Units/Ml) 300 units FLUSH Q8H [facility] Last Admin: 03/21/18 05:29 Dose: 300 units Hydrochlorothiazide (Hydrochlorothiazide) 12.5 mg PO DAILY [facility] Last Admin: 03/21/18 07:42 Dose: 12.5 mg Vancomycin HCl 1.5 gm/ Sodium (Chloride) 500 mls @ 250 mls/hr IV 0600,1400, 2200 [facility] Last Admin: 03/21/18 05:35 Dose: 250 mls/hr Levofloxacin (Levaquin) 500 mg PO Q24H [facility] Losartan Potassium (Cozaar) 100 mg PO DAILY [facility] Last Admin: 03/21/18 07:41 Dose: 100 mg Magnesium Oxide (Magnesium Oxide) 500 mg PO WITHBREAKFAST [facility] Last Admin: 03/21/18 07:42 Dose: 500 mg Ondansetron HCl (Zofran Odt) 4 mg PO Q4H PRN PRN Reason: Nausea/Vomiting Oxycodone/Acetaminophen (Percocet 325-5 Mg) 2 tab PO Q4H PRN PRN Reason: Pain Last Admin: 03/21/18 05:28 Dose: 2 tab Pantoprazole Sodium (Protonix Iv) 40 mg IVPUSH 0700 [facility] Discontinued Medications Enoxaparin Sodium (Lovenox) 40 mg SUBCUT Q24H [facility] Last Admin: 03/20/18 22:59 Dose: Not Given Furosemide (Lasix) 20 mg IVPUSH ONETIME ONE Stop: 03/21/18 08:01 Last Admin: 03/21/18 07:41 Dose: 20 mg Levofloxacin (Levaquin) 500 mg PO Q24H [facility] Last Admin: 03/20/18 22:59 Dose: Not Given Metformin HCl (Glucophage) 1,000 mg PO BIDMEALS [facility] - Exam General: Alert, Oriented HEENT: Mucous Membr. Moist/[place] Neck: Supple Lungs: Rhonchi Cardiovascular: Regular Rate, Regular Rhythm GI/Abdominal Exam: Normal Bowel Sounds, Soft, Tender (tender to upper quadrants bilaterally) Extremities: Limited Range of Motion (Has intact right knee brace and bandages from previous surgery for spacer placement due to infection in joint; nurses report no further drainage at this time. Swelling has much improved to right knee) Wound/Incisions: Healing Well, Erythema Improving Neurological: No New Focal Deficit - Problem List & Annotations (1) Pneumonia SNOMED Code(s): 987338462 Code(s): J18.9 - PNEUMONIA, UNSPECIFIED ORGANISM Status: Acute Priority: High Current Visit: Yes (2) Pleural effusion SNOMED Code(s): 59442873 Code(s): J90 - PLEURAL EFFUSION, NOT ELSEWHERE CLASSIFIED Status: Acute Current Visit: Yes (3) S/P right knee surgery SNOMED Code(s): 313890989 Code(s): Z98.890 - OTHER SPECIFIED POSTPROCEDURAL STATES Status: Acute Priority: High Current Visit: Yes - Problem List Review Problem List Initiated/Reviewed/Updated: Yes - My Orders Last 24 Hours: My Active Orders 03/21/18 09:00 Pantoprazole [ProTONIX IV] 40 mg IVPUSH 0700 03/22/18 05:11 BASIC METABOLIC PANEL,BMP [CHEM] DAILY C-REACTIVE PROTEIN [CHEM] DAILY CBC WITH AUTO DIFF [HEME] DAILY 03/23/18 05:11 BASIC METABOLIC PANEL,BMP [CHEM] DAILY C-REACTIVE PROTEIN [CHEM] DAILY CBC WITH AUTO DIFF [HEME] DAILY 03/24/18 05:11 BASIC METABOLIC PANEL,BMP [CHEM] DAILY C-REACTIVE PROTEIN [CHEM] DAILY CBC WITH AUTO DIFF [HEME] DAILY - Assessment Assessment:: Pneumonia Bilateral Pleural Effusion S/P right knee joint surgery with spacer placement due to infection - Plan Plan:: Patient feels shortness of breath is some better this am. Now having more soreness to her abdomen. Feels nauseated at times. No vomiting. Did eat her breakfast of toast this am. Has productive cough with milky sputum. Hasn't noted any wheezing. Notes swelling has gone down in right knee, no further drainage from wound noted over the weekend. She admits that the pain limits her mobility but is aware she needs to be up and moving around. Was to see Dr. Ramirez today but due to now noted pneumonia and pleural effusions, would like to hold off until later in the week for recheck. WBC is low today at 2.6, hemoglobin 9.6. Sodium 133, potassium 3.3. Patient unaware of having low counts in the past but admits hasn't had any lab work for quite some time. Does not recall having any labs done in [place]. Patient will continue with Lasix and Levaquin in addition to her Vancomycin IV. Encouraged ambulation/mobility. Start IV Protonix today due to GI upset. Repeat labs in am, will need to follow WBC, hemoglobin. May need further work up of this in the future if doesn't recover after IV antibiotics completed.
[2018-03-21] MEDS: Cyanocobalamin (Vitamin B12) 100 MCG Tab PO SCH (10:35)
[2018-03-21] MEDS: Pantoprazole 40 MG Vial IVPUSH SCH (10:35)
[2018-03-21] MEDS: ALPRAZolam 0.25 MG Tab PO PRN (14:33)
[2018-03-21] MEDS: Levofloxacin 500 MG Tab PO SCH (20:29)
[2018-03-21] MEDS: Enoxaparin 40 MG/0.4 ML Syringe SUBCUT SCH (20:29)
[2018-03-21] MEDS: Aspirin 81 MG Tab.EC PO SCH (20:29)
[2018-03-21] MEDS: Ondansetron 4 MG Tab.DIS PO PRN (23:59)
[2018-03-21] MEDS: Acetaminophen 325 MG Tab PO PRN (23:59)
[2018-03-22] MEDS: Vancomycin 1.5 GM in Sodium Chloride 0.9% 500 ML IV SCH ×3 (05:44→21:13)
[2018-03-22] MEDS: Ondansetron 4 MG Tab.DIS PO PRN ×2 (06:25→21:45)
[2018-03-22] MEDS: Pantoprazole 40 MG Vial IVPUSH SCH (06:40)
[2018-03-22] MEDS: ALPRAZolam 0.25 MG Tab PO PRN ×2 (07:18→23:36)
[2018-03-22 07:58] LABS: CHLORIDE,CL 96 mEq/L (98-106)
[2018-03-22 08:05] LABS: SODIUM,NA 134 mEq/L (136-145)
[2018-03-22] MEDS: Hydrochlorothiazide 12.5 MG Cap PO SCH (08:12)
[2018-03-22] MEDS: Losartan 100 MG Tab PO SCH (08:12)
[2018-03-22] MEDS: Ferrous Sulfate 324 MG Tab.EC PO SCH ×2 (08:12→17:30)
[2018-03-22] MEDS: Citalopram 10 MG Tab PO SCH (08:13)
[2018-03-22] MEDS: Cyanocobalamin (Vitamin B12) 100 MCG Tab PO SCH (08:13)
[2018-03-22] MEDS: Cholecalciferol (Vitamin D3) 1,000 Unit Tab PO SCH (08:13)
[2018-03-22] MEDS: Acetaminophen 325 MG Tab PO PRN (10:56)
[2018-03-22] MEDS: Potassium Chloride 10 MEQ Tab.ER PO SCH ×2 (12:52→17:30)
[2018-03-22] MEDS: Aspirin 81 MG Tab.EC PO SCH (20:27)
[2018-03-22] MEDS: Enoxaparin 40 MG/0.4 ML Syringe SUBCUT SCH (20:28)
[2018-03-22] MEDS: Levofloxacin 500 MG Tab PO SCH (21:09)
--- NOTE | 2018-03-22 21:27 | PCM.PN ---
- General Info Date of Service: 03/22/18 Admission Dx/Problem (Free Text): Pneumonia Pleural Effusion Right knee joint infection Functional Status: Reports: Pain Controlled, Ambulating. Denies: Tolerating Diet - Review of Systems General: Reports: Weakness, Malaise. Denies: Fever HEENT: Reports: No Symptoms Pulmonary: Reports: Cough. Denies: Shortness of Breath Cardiovascular: Denies: Chest Pain, Edema, Lightheadedness Gastrointestinal: Reports: Abdominal Pain, Nausea. Denies: Vomiting Genitourinary: Reports: No Symptoms Musculoskeletal: Reports: Leg Pain, Joint Pain Skin: Reports: Other (incision right knee) Neurological: Reports: No Symptoms - Patient Data Vitals - Most Recent: Last Vital Signs Temp 97 F 03/22/18 20:00 Pulse 88 03/22/18 20:00 Resp 18 03/22/18 20:00 BP 159/78 H 03/22/18 20:00 Pulse Ox 97 03/22/18 20:00 Weight - Most Recent: 228 lb 6.4 oz Lab Results Last 24 Hours: Laboratory Results - last 24 hr 03/22/18 03/22/18 Range/Units 07:27 07:27 WBC 2.9 L (5.0-10.0) 10^3/uL RBC 3.07 L (4.00-5.50) 10^6/uL Hgb 9.4 L (12.0-16.0) g/dL Hct 26.7 L (37.0-47.0) % MCV 87.0 (82.0-94.0) fL MCH 30.6 (27.0-32.0) pg MCHC 35.2 (33.0-38.0) g/dL RDW Coeff of Jacky 13.8 (11.0-15.0) % Plt Count 212 (150-400) 10^3/uL Neut % (Auto) 63.8 (35-85) % Lymph % (Auto) 21.1 (10-55) % Woodson % (Auto) 13.1 (0-16) % Eos % (Auto) 1.7 (0-5) % Baso % (Auto) 0.3 (0-3) % Neut # (Auto) 1.84 (1.80-7.00) 10^3/uL Lymph # (Auto) 0.61 L (1.00-4.80) 10^3/uL [place]son # (Auto) 0.38 (0.00-0.80) 10^3/uL Eos # (Auto) 0.05 (0.00-0.45) 10^3/uL Baso # (Auto) 0.01 10^3/uL Sodium 134 L (136-145) mEq/L Potassium 3.1 L (3.5-5.0) mEq/L Chloride 96 L (98-106) mEq/L Carbon Dioxide 28 (21-32) mmol/L BUN 4 L (7-18) mg/dL Creatinine 0.5 L (0.6-1.0) mg/dL Est Cr Clr Drug Dosing 109.01 mL/min Estimated GFR (MDRD) > 60 (>=60) mL/min Glucose 159 H (75-99) mg/dL Calcium 7.7 L (8.4-10.1) mg/dL C-Reactive Protein 6.2 H (0.2-0.8) mg/dL Med Orders - Current: Current Medications Acetaminophen (Tylenol) 650 mg PO Q4H PRN PRN Reason: Pain Last Admin: 03/22/18 10:56 Dose: 650 mg Alprazolam (Xanax) 0.25 mg PO TID PRN PRN Reason: Anxiety Last Admin: 03/22/18 07:18 Dose: 0.25 mg Aspirin (Halfprin) 81 mg PO BEDTIME [facility] Last Admin: 03/22/18 20:27 Dose: 81 mg Cholecalciferol (Vitamin D3) 4,000 units PO DAILY [facility] Last Admin: 03/22/18 08:13 Dose: Not Given Citalopram Hydrobromide (Celexa) 20 mg PO DAILY [facility] Last Admin: 03/22/18 08:13 Dose: 20 mg Cyanocobalamin (Vitamin B12) 500 mcg PO DAILY [facility] Last Admin: 03/22/18 08:13 Dose: Not Given Cyclobenzaprine HCl (Flexeril) 10 mg PO TID PRN PRN Reason: Muscle Spasm Docusate Sodium (Colace) 100 mg PO DAILY PRN PRN Reason: Constipation Enoxaparin Sodium (Lovenox) 40 mg SUBCUT Q24H [facility] Last Admin: 03/22/18 20:28 Dose: 40 mg Ferrous Sulfate (Ferrous Sulfate) 324 mg PO BIDMEALS [facility] Last Admin: 03/22/18 17:30 Dose: 324 mg Heparin Sodium (Porcine) (Heparin Lock Flush 100 Units/Ml) 300 units FLUSH Q8H [facility] Last Admin: 03/22/18 16:31 Dose: 300 units Hydrochlorothiazide (Hydrochlorothiazide) 12.5 mg PO DAILY [facility] Last Admin: 03/22/18 08:12 Dose: 12.5 mg Vancomycin HCl 1.5 gm/ Sodium (Chloride) 500 mls @ 250 mls/hr IV 0600,1400, 2200 [facility] Last Admin: 03/22/18 21:13 Dose: 250 mls/hr Levofloxacin (Levaquin) 500 mg PO Q24H [facility] Last Admin: 03/22/18 21:09 Dose: 500 mg Losartan Potassium (Cozaar) 100 mg PO DAILY [facility] Last Admin: 03/22/18 08:12 Dose: 100 mg Magnesium Oxide (Magnesium Oxide) 500 mg PO WITHBREAKFAST [facility] Last Admin: 03/22/18 08:13 Dose: Not Given Ondansetron HCl (Zofran Odt) 4 mg PO Q4H PRN PRN Reason: Nausea/Vomiting Last Admin: 03/22/18 06:25 Dose: 4 mg Oxycodone/Acetaminophen (Percocet 325-5 Mg) 2 tab PO Q4H PRN PRN Reason: Pain Last Admin: 03/21/18 21:38 Dose: 2 tab Pantoprazole Sodium (Protonix Iv) 40 mg IVPUSH 0700 [facility] Last Admin: 03/22/18 06:40 Dose: 40 mg Potassium Chloride (Klor-Con 10) 10 meq PO BIDMEALS [facility] Last Admin: 03/22/18 17:30 Dose: 10 meq Vancomycin HCl (Pharmacy To Dose - Vancomycin) 1 dose .XX ASDIRECTED [facility] Discontinued Medications Enoxaparin Sodium (Lovenox) 40 mg SUBCUT Q24H [facility] Last Admin: 03/20/18 22:59 Dose: Not Given Furosemide (Lasix) 20 mg IVPUSH ONETIME ONE Stop: 03/21/18 08:01 Last Admin: 03/21/18 07:41 Dose: 20 mg Levofloxacin (Levaquin) 500 mg PO Q24H [facility] Last Admin: 03/20/18 22:59 Dose: Not Given Metformin HCl (Glucophage) 1,000 mg PO BIDMEALS [facility] - Exam General: Alert, Oriented HEENT: Mucous Membr. Moist/[place] Neck: Supple Lungs: Normal Respiratory Effort, Crackles Cardiovascular: Regular Rate, Regular Rhythm GI/Abdominal Exam: Normal Bowel Sounds, Soft, Non-Tender Extremities: Joint Swelling, Other (right knee does have some remaining redness to the lower 1/3 of the incision. No drainage noted. Padmini intact, wound well approximated) Wound/Incisions: Erythema Improving Neurological: No New Focal Deficit - Problem List & Annotations (1) Pneumonia SNOMED Code(s): 103305832 Code(s): J18.9 - PNEUMONIA, UNSPECIFIED ORGANISM Status: Acute Priority: High Current Visit: Yes (2) Pleural effusion SNOMED Code(s): 86014378 Code(s): J90 - PLEURAL EFFUSION, NOT ELSEWHERE CLASSIFIED Status: Acute Priority: High Current Visit: Yes (3) S/P right knee surgery SNOMED Code(s): 383687772 Code(s): Z98.890 - OTHER SPECIFIED POSTPROCEDURAL STATES Status: Acute Priority: High Current Visit: Yes - Problem List Review Problem List Initiated/Reviewed/Updated: Yes - My Orders Last 24 Hours: My Active Orders 03/22/18 12:00 Potassium Chloride [Klor-Con 10] 10 meq PO BIDMEALS 03/23/18 05:11 BASIC METABOLIC PANEL,BMP [CHEM] DAILY C-REACTIVE PROTEIN [CHEM] DAILY CBC WITH AUTO DIFF [HEME] DAILY 03/23/18 13:30 VANCOMYCIN TROUGH [CHEM] Routine 03/24/18 05:11 BASIC METABOLIC PANEL,BMP [CHEM] DAILY C-REACTIVE PROTEIN [CHEM] DAILY CBC WITH AUTO DIFF [HEME] DAILY - Assessment Assessment:: Pneumonia Bilateral Pleural Effusion S/P right knee joint surgery with spacer placement due to infection - Plan Plan:: Patient feels shortness of breath is some better this am. Now having more soreness to her abdomen. Feels nauseated at times. No vomiting. Did eat her breakfast of toast this am. Has productive cough with milky sputum. Hasn't noted any wheezing. Notes swelling has gone down in right knee, no further drainage from wound noted over the weekend. She admits that the pain limits her mobility but is aware she needs to be up and moving around. Was to see Dr. James today but due to now noted pneumonia and pleural effusions, would like to hold off until later in the week for recheck. WBC is low today at 2.6, hemoglobin 9.6. Sodium 133, potassium 3.3. Patient unaware of having low counts in the past but admits hasn't had any lab work for quite some time. Does not recall having any labs done in [place]. Patient will continue with Lasix and Levaquin in addition to her Vancomycin IV. Encouraged ambulation/mobility. Start IV Protonix today due to GI upset. Repeat labs in am, will need to follow WBC, hemoglobin. May need further work up of this in the future if doesn't recover after IV antibiotics completed. 03-22-2018 Patient does continue to have nausea and chest discomfort at times but feels it only correlates now with IV Vancomycin infusions. States does seem to resolve after infusion complete. Does continue to have productive cough at times. Denies shortness of breath. Knee incision is improving, less redness noted. No drainage. Edges well approximated. [place] intact. Labs continue to show a WBC of 2.9. Hemoglobin 9.4. Potassium down to 3.1. Did contact [facility], WBC was 10.3 on the and did drop to 6.4 on the . Will continue with current meds. Repeat labs in am. Probable discharge home in am. Will continue with IV antibiotics at home until able to have full knee replacement.
[2018-03-23] MEDS: Acetaminophen 325 MG Tab PO PRN (01:32)
[2018-03-23] MEDS: Vancomycin 1.5 GM in Sodium Chloride 0.9% 500 ML IV SCH (05:00)
[2018-03-23] MEDS: Pantoprazole 40 MG Vial IVPUSH SCH (07:12)
[2018-03-23] MEDS: Citalopram 10 MG Tab PO SCH (07:17)
[2018-03-23] MEDS: Ferrous Sulfate 324 MG Tab.EC PO SCH (07:18)
[2018-03-23] MEDS: Losartan 100 MG Tab PO SCH (07:18)
[2018-03-23] MEDS: Hydrochlorothiazide 12.5 MG Cap PO SCH (07:19)
[2018-03-23] MEDS: Potassium Chloride 10 MEQ Tab.ER PO SCH (07:19)
[2018-03-23] MEDS: Cyanocobalamin (Vitamin B12) 100 MCG Tab PO SCH (07:22)
[2018-03-23] MEDS: Cholecalciferol (Vitamin D3) 1,000 Unit Tab PO SCH (07:24)
[2018-03-23] MEDS: Acetaminophen/oxyCODONE 325-5 MG Tab PO PRN (07:39)
[2018-03-23 07:58] LABS: CHLORIDE,CL 95 mEq/L (98-106); SODIUM,NA 132 mEq/L (136-145)
--- NOTE | 2018-03-23 21:56 | PCM.DCSUM1 ---
Discharge Summary - Hospital Course Free Text/Narrative:: Patient had been admitted to our facility for swing bed for physical therapy for strengthening and IV Vancomycin due to a staph infection in her knee. She had been to [facility] and had prepped for a total knee surgery but during surgery, noted evidence of infection so a spacer was placed and she was started on a 4 week course of Vancomycin. While here in swing bed, developed shortness of breath and a cough. A d-dimer was done which was elevated so a CTA of the chest was done. No PE was noted but she did have mild pneumonia and bilateral pleural effusions. Was started on Levaquin and Lasix. WBC done here was low, unable to find any recent WBC to compare to that was done recently. Transferred to acute inpatient. Diagnosis: Stroke: No - Discharge Data Discharge Date: 03/23/18 Discharge Disposition: Home, W Home Health Agency Condition: Fair - Discharge Diagnosis/Problem(s) (1) Pneumonia SNOMED Code(s): 110456954 ICD Code: J18.9 - PNEUMONIA, UNSPECIFIED ORGANISM Status: Acute Priority : High (2) Pleural effusion SNOMED Code(s): 04363524 ICD Code: J90 - PLEURAL EFFUSION, NOT ELSEWHERE CLASSIFIED Status: Acute Priority: High (3) S/P right knee surgery SNOMED Code(s): 347919557 ICD Code: Z98.890 - OTHER SPECIFIED POSTPROCEDURAL STATES Status: Acute Priority: High - Patient Summary/Data Complications: none Consults: Consultations 03/20/18 21:41 PT Evaluation and Treatment [CONS] Routine Hospital Course: Patient has had improvement of her shortness of breath over the last 3 days. Minimal cough, productive of clear phlegm. Oxygen sats are good. She has had improvement of the redness of her knee, no drainage. Lenora intact, well approximated. Is moving around albeit quite slowly. Still has significant pain in her knee. Labs have been monitored, WBC low at 2.9, hemoglobin 9.6. Were able to track down last WBC down at [facility] and was 10.3 and 6.8 when antibiotics were started. Today, has improved to 4.4. Chest xray does show slight improvement of the pleural effusion. Discharge home today. Does have follow up appointment with Dr. Ramirez today. Will receive home health care due to inability to drive for care. Will be staying at her mother's home and have assistance with IV meds and PICC line by nursing. Nursing to monitor incision, lung sounds, vital signs. Physical therapy to continue to ambulate with patient for strengthening. Will plan for at minimum 2 more weeks of IV Vanco until able to have full replacement. She will be on Protonix as the Vanco does cause nausea and chest discomfort. Percocet for pain control. - Patient Instructions Diet: Diabetic Diet Activity: As Tolerated - Discharge Plan *PRESCRIPTION DRUG MONITORING PROGRAM REVIEWED*: Not Applicable *COPY OF PRESCRIPTION DRUG MONITORING REPORT IN PATIENT CODY: Not Applicable Prescriptions/Med Rec: Ferrous Sulfate 324 mg PO BIDMEALS #60 tab.ec levoFLOXacin [Levaquin] 500 mg PO Q24H #7 tablet Pantoprazole Sodium [Protonix] 40 mg PO DAILY #30 tablet.dr Potassium Chloride [Klor-Con 10] 10 meq PO BIDMEALS #60 tab.er Sodium Chloride 0.9% [Normal Saline] 500 ml IV 0600,1400,2200 #42 bag Vancomycin 1.5 gm IV 0600,1400,2200 #42 sdv Vancomycin Pharmacy to Dose [Pharmacy to Dose - Vancomycin] 1 dose IV ASDIRECTED #42 each Home Medications: Home Meds ALPRAZolam [Xanax] 0.25 mg PO TID PRN 03/10/18 [History] Aspirin [Low Dose Aspirin EC] 81 mg PO BEDTIME 03/10/18 [History] Cholecalciferol (Vitamin D3) [Vitamin D3] 4,000 units PO DAILY 03/10/18 [History ] Citalopram [Citalopram HBr] 20 mg PO DAILY 03/10/18 [History] Cyanocobalamin (Vitamin B-12) [Vitamin B-12] 500 mcg PO DAILY 03/10/18 [History] Flaxseed Oil 1,000 mg PO BEDTIME 03/10/18 [History] Garlic 1,000 mg PO DAILY 03/10/18 [History] Losartan/Hydrochlorothiazide [Losartan-HCTZ 100-12.5 MG] 1 tab PO DAILY [History] Magnesium Gluconate [Magonate] 500 mg PO DAILY 03/10/18 [History] Lavinia-3/DHA/Epa/Fish Oil [Lavinia 3 500 Softgel] 1,000 mg PO BEDTIME 03/10/18 [ History] Vit A/C/E/Zinc/Selenium/Copper [Vision Formula Tablet] 1 tab PO DAILY 03/10/18 [ History] amLODIPine [Norvasc] 5 mg PO BEDTIME 03/10/18 [History] metFORMIN [Glucophage] 1,000 mg PO BIDMEALS 03/10/18 [History] oxyCODONE HCl/Acetaminophen [Percocet 5-325 mg Tablet] 1 - 2 tab PO Q4H PRN [History] Ferrous Sulfate 324 mg PO BIDMEALS #60 tab.ec 03/23/18 [Rx] Pantoprazole Sodium [Protonix] 40 mg PO DAILY #30 tablet.dr 03/23/18 [Rx] Potassium Chloride [Klor-Con 10] 10 meq PO BIDMEALS #60 tab.er 03/23/18 [Rx] Sodium Chloride 0.9% [Normal Saline] 500 ml IV 0600,1400,2200 #42 bag 03/23/18 [ Rx] Vancomycin 1.5 gm IV 0600,1400,2200 #42 sdv 03/23/18 [Rx] Vancomycin Pharmacy to Dose [Pharmacy to Dose - Vancomycin] 1 dose IV ASDIRECTED #42 each 03/23/18 [Rx] levoFLOXacin [Levaquin] 500 mg PO Q24H #7 tablet 03/23/18 [Rx] Referrals: [facility] [Outside] - Discharge Summary/Plan Comment DC Time >30 min.: No - General Info Date of Service: 03/23/18 Admission Dx/Problem (Free Text: Pneumonia Pleural Effusion Right knee joint infection Functional Status: Reports: Pain Controlled, Tolerating Diet, Ambulating - Review of Systems General: Reports: Weakness, Fatigue. Denies: Fever HEENT: Denies: No Symptoms Pulmonary: Reports: Cough. Denies: Shortness of Breath Cardiovascular: Denies: Chest Pain, Edema, Lightheadedness Gastrointestinal: Reports: Abdominal Pain Genitourinary: Reports: No Symptoms Musculoskeletal: Reports: No Symptoms Skin: Reports: Other (Incision to right knee) - Patient Data Vitals - Most Recent: Last Vital Signs Temp 98.2 F 03/23/18 08:00 Pulse 94 03/23/18 08:00 Resp 20 03/23/18 08:00 BP 167/64 H 03/23/18 08:00 Pulse Ox 90 L 03/23/18 08:00 Weight - Most Recent: 228 lb 6.4 oz Lab Results - Last 24 hrs: Laboratory Results - last 24 hr 03/23/18 03/23/18 Range/Units 07:40 07:40 WBC 4.4 L (5.0-10.0) 10^3/uL RBC 3.36 L (4.00-5.50) 10^6/uL Hgb 10.3 L (12.0-16.0) g/dL Hct 29.5 L (37.0-47.0) % MCV 87.8 (82.0-94.0) fL MCH 30.7 (27.0-32.0) pg MCHC 34.9 (33.0-38.0) g/dL RDW Coeff of Jacky 13.9 (11.0-15.0) % Plt Count 232 (150-400) 10^3/uL Neut % (Auto) 61.9 (35-85) % Lymph % (Auto) 22.2 (10-55) % Upson % (Auto) 13.8 (0-16) % Eos % (Auto) 1.6 (0-5) % Baso % (Auto) 0.5 (0-3) % Neut # (Auto) 2.70 (1.80-7.00) 10^3/uL Lymph # (Auto) 0.97 L (1.00-4.80) 10^3/uL Upson # (Auto) 0.60 (0.00-0.80) 10^3/uL Eos # (Auto) 0.07 (0.00-0.45) 10^3/uL Baso # (Auto) 0.02 10^3/uL Sodium 132 L (136-145) mEq/L Potassium 3.8 D (3.5-5.0) mEq/L Chloride 95 L (98-106) mEq/L Carbon Dioxide 29 (21-32) mmol/L BUN 3 L (7-18) mg/dL Creatinine 0.6 (0.6-1.0) mg/dL Est Cr Clr Drug Dosing 90.84 mL/min Estimated GFR (MDRD) > 60 (>=60) mL/min Glucose 168 H (75-99) mg/dL Calcium 8.2 L (8.4-10.1) mg/dL C-Reactive Protein 5.0 H (0.2-0.8) mg/dL Med Orders - Current: Current Medications Discontinued Medications Acetaminophen (Tylenol) 650 mg PO Q4H PRN PRN Reason: Pain Last Admin: 03/23/18 01:32 Dose: 650 mg Alprazolam (Xanax) 0.25 mg PO TID PRN PRN Reason: Anxiety Last Admin: 03/22/18 23:36 Dose: 0.25 mg Aspirin (Halfprin) 81 mg PO BEDTIME [facility] Last Admin: 03/22/18 20:27 Dose: 81 mg Cholecalciferol (Vitamin D3) 4,000 units PO DAILY [facility] Last Admin: 03/23/18 07:24 Dose: 4,000 units Citalopram Hydrobromide (Celexa) 20 mg PO DAILY [facility] Last Admin: 03/23/18 07:17 Dose: 20 mg Cyanocobalamin (Vitamin B12) 500 mcg PO DAILY [facility] Last Admin: 03/23/18 07:22 Dose: 500 mcg Cyclobenzaprine HCl (Flexeril) 10 mg PO TID PRN PRN Reason: Muscle Spasm Docusate Sodium (Colace) 100 mg PO DAILY PRN PRN Reason: Constipation Enoxaparin Sodium (Lovenox) 40 mg SUBCUT Q24H [facility] Last Admin: 03/20/18 22:59 Dose: Not Given Enoxaparin Sodium (Lovenox) 40 mg SUBCUT Q24H [facility] Last Admin: 03/22/18 20:28 Dose: 40 mg Ferrous Sulfate (Ferrous Sulfate) 324 mg PO BIDMEALS [facility] Last Admin: 03/23/18 07:18 Dose: 324 mg Furosemide (Lasix) 20 mg IVPUSH ONETIME ONE Stop: 03/21/18 08:01 Last Admin: 03/21/18 07:41 Dose: 20 mg Heparin Sodium (Porcine) (Heparin Lock Flush 100 Units/Ml) 300 units FLUSH Q8H [facility] Last Admin: 03/23/18 07:16 Dose: 300 units Hydrochlorothiazide (Hydrochlorothiazide) 12.5 mg PO DAILY [facility] Last Admin: 03/23/18 07:19 Dose: 12.5 mg Vancomycin HCl 1.5 gm/ Sodium (Chloride) 500 mls @ 250 mls/hr IV 0600,1400, 2200 [facility] Last Admin: 03/23/18 05:00 Dose: 250 mls/hr Levofloxacin (Levaquin) 500 mg PO Q24H [facility] Last Admin: 03/20/18 22:59 Dose: Not Given Levofloxacin (Levaquin) 500 mg PO Q24H [facility] Last Admin: 03/22/18 21:09 Dose: 500 mg Losartan Potassium (Cozaar) 100 mg PO DAILY [facility] Last Admin: 03/23/18 07:18 Dose: 100 mg Magnesium Oxide (Magnesium Oxide) 500 mg PO WITHBREAKFAST [facility] Last Admin: 03/23/18 07:21 Dose: 500 mg Metformin HCl (Glucophage) 1,000 mg PO BIDMEALS [facility] Ondansetron HCl (Zofran Odt) 4 mg PO Q4H PRN PRN Reason: Nausea/Vomiting Last Admin: 03/22/18 21:45 Dose: 4 mg Oxycodone/Acetaminophen (Percocet 325-5 Mg) 2 tab PO Q4H PRN PRN Reason: Pain Last Admin: 03/23/18 07:39 Dose: 2 tab Pantoprazole Sodium (Protonix Iv) 40 mg IVPUSH 0700 [facility] Last Admin: 03/23/18 07:12 Dose: 40 mg Potassium Chloride (Klor-Con 10) 10 meq PO BIDMEALS [facility] Last Admin: 03/23/18 07:19 Dose: 10 meq Vancomycin HCl (Pharmacy To Dose - Vancomycin) 1 dose .XX ASDIRECTED [facility] - Exam General: Reports: Alert, Oriented HEENT: Reports: Mucous Membr. Moist/[place] Neck: Reports: Supple Lungs: Reports: Clear to Auscultation, Rhonchi Cardiovascular: Reports: Regular Rate, Regular Rhythm GI/Abdominal Exam: Normal Bowel Sounds, Soft, Non-Tender Extremities: Leg Pain, Limited Range of Motion Skin: Reports: Warm, Dry Wound/Incisions: Reports: Dressing Dry and Intact, Erythema Improving Neurological: Reports: No New Focal Deficit
== END 2018-03-23 09:20 | disposition home health service (06) | DRG 139 ==
LOC: UNDOADMIN 18:52 → CC.MS 18:52
PROVIDERS: ADMIT Nurse Practitioner Family; ATTEND Family Medicine
DX: J18.9 Pneumonia, unspecified organism (principal); R11.0 Nausea; R07.89 Other chest pain; T36.8X5A Adverse effect of other systemic antibiotics, initial encounter; I10 Essential (primary) hypertension; I35.0 Nonrheumatic aortic (valve) stenosis; F41.9 Anxiety disorder, unspecified; F32.9 Major depressive disorder, single episode, unspecified; E11.9 Type 2 diabetes mellitus without complications; D68.51 Activated protein C resistance; H54.7 Unspecified visual loss; K59.00 Constipation, unspecified; Z98.890 Other specified postprocedural states; Z86.19 Personal history of other infectious and parasitic diseases; Z79.899 Other long term (current) drug therapy; Z79.82 Long term (current) use of aspirin; Z79.84 Long term (current) use of oral hypoglycemic drugs
CPT/HCPCS: 36415; 71046; 80048; 80053; 82962; 85025; 86140; 97110-GP; A9270-GY; C9113; J1642; J1650; J1940; J3370; J7040

== ENCOUNTER 2020-02-08 16:19 | Emergency (ER) | payer BC ==
[2020-02-08 17:08] LABS: CHLORIDE,CL 88 mEq/L (98-106)
--- NOTE | 2020-02-08 17:14 | EDM.PDOC ---
ED HPI GENERAL MEDICAL PROBLEM - General Stated Complaint: PT FROM CLINIC Time Seen by Provider: 02/08/20 16:30 Source of Information: Reports: Patient, Family () History Limitations: Reports: Altered Mental Status - History of Present Illness INITIAL COMMENTS - FREE TEXT/NARRATIVE: Pt initially presented to the clinic for weakness and not feeling well. When she arrived their she was weak, unable to get up without help, confused and not acting normally. She was then brought to the ER for evaluation. She is unable to tell me when she got sick. She denies any specific pain but states that she doesn't feel good. She has vomit in her hair and on the side of her face. Occasional cough noted in the ER. states that she didn't feel well when she got off work yesterday. Has had some headaches since Wednesday. SHe became more incoherent during the day today. Did vomit once during the night and then vomiting during the day today and states that she couldn't figure out how to vomit in a bucket. She did recognize me and could call me by name. She has no recollection of what has been going on throughout the day. - Related Data Allergies Allergy/AdvReac Type Severity Reaction Status Date / Time No Known Allergies Allergy Verified 01/19/19 15:03 Home Meds: Home Meds ALPRAZolam [Xanax] 0.25 mg PO TID PRN 03/10/18 [History] Aspirin [Low Dose Aspirin EC] 81 mg PO BEDTIME 03/10/18 [History] Cholecalciferol (Vitamin D3) [Vitamin D3] 5,000 units PO DAILY 03/10/18 [History] Citalopram [Citalopram HBr] 20 mg PO DAILY 03/10/18 [History] Flaxseed Oil 1,000 mg PO BEDTIME 03/10/18 [History] Garlic 1,000 mg PO DAILY 03/10/18 [History] Losartan/Hydrochlorothiazide [Losartan-HCTZ 100-12.5 MG] 1 tab PO DAILY 03/10/18 [History] Magnesium Gluconate [Magonate] 500 mg PO DAILY 03/10/18 [History] [place]-3/DHA/Epa/Fish Oil [[place] 3 500 Softgel] 1,000 mg PO BEDTIME 03/10/18 [History] amLODIPine [Norvasc] 5 mg PO BEDTIME 03/10/18 [History] metFORMIN [Glucophage] 1,000 mg PO BIDMEALS 03/10/18 [History] Ferrous Sulfate 324 mg PO BIDMEALS #60 tab.ec 03/23/18 [Rx] Pantoprazole Sodium [Protonix] 40 mg PO DAILY #30 tablet.dr 03/23/18 [Rx] Potassium Chloride [Klor-Con 10] 10 meq PO BIDMEALS #60 tab.er 03/23/18 [Rx] Clopidogrel Bisulfate [Clopidogrel] 75 mg PO DAILY 01/19/19 [History] Desonide 1 each .ROUTE BID 01/19/19 [History] Vit No.129/Iron/FA [ One Daily Tablet] 1 ea PO DAILY 01/19/19 [History] Ubidecarenone [Coq10] 1 each PO BID 01/19/19 [History] Vit A/C/E AC/Znox/Cupric Oxide [Eye Vitamin-Minerals Tablet] 1 ea PO DAILY 01/19/19 [History] traMADol HCl [Tramadol HCl] 50 mg PO BID 01/19/19 [History] Past Medical History HEENT History: Reports: Impaired Vision Cardiovascular History: Reports: Heart Murmur, Hypertension, Other (See Below) Other Cardiovascular History: aortic stenosis Gastrointestinal History: Reports: Colon Polyp Musculoskeletal History: Reports: Osteoarthritis Psychiatric History: Reports: Anxiety, Depression Endocrine/Metabolic History: Reports: Diabetes, Type II Hematologic History: Reports: Other (See Below) Other Hematologic History: Factor V Leiden - Past Surgical History Cardiovascular Surgical History: Reports: Other (See Below) (TAVR in 2019) Other Cardiovascular Surgeries/Procedures: said she had a leaky heart valve for years. Said her surgery was low risk, and that they approved for her to do a KATHARINE, said she has incisions bilat groin, healing. Since TAVR: some SOB but improved from before surgery, GI Surgical History: Reports: Colonoscopy Female Surgical History: Reports: Breast Biopsy, D&C Musculoskeletal Surgical History: Reports: Arthroscopic Knee, Knee Replacement Other Musculoskeletal Surgeries/Procedures:: h/o knee surgeries Social & Family History - Family History Family Medical History: Noncontributory - Caffeine Use Caffeine Use: Reports: Soda - Living Situation & Occupation Living situation: Reports: , with Spouse Occupation: Employed ED ROS GENERAL - Review of Systems Review Of Systems: See Below Constitutional: Reports: Fever, Weakness HEENT: Reports: No Symptoms Respiratory: Reports: Cough (dry). Denies: Shortness of Breath Cardiovascular: Denies: Chest Pain, Edema GI/Abdominal: Denies: Abdominal Pain, Diarrhea : Reports: No Symptoms Musculoskeletal: Reports: No Symptoms Skin: Reports: No Symptoms Neurological: Reports: Confusion, Trouble Speaking, Weakness Psychiatric: Reports: Agitation, Anxiety ED EXAM, GENERAL - Physical Exam Exam: See Below Exam Limited By: Altered Mental Status General Appearance: Alert, Anxious, Lethargic, Obtunded, Other (restless and confused) Eye Exam: Bilateral Eye: Other (pupils are reactive and equal but very slow to respond to light.) Ears: Normal External Exam, Normal Canal, Normal TMs Nose: Normal Inspection Throat/Mouth: Normal Inspection, Normal Oropharynx, No Airway Compromise Head: Atraumatic, Normocephalic Neck: Normal Inspection, Supple, Non-Tender, Full Range of Motion, Other (No co mplaints of pain or tenderness with movement). No: Tender Lateral, Tender Midline Respiratory/Chest: Lungs Clear, Normal Breath Sounds, Other (oxygen sats on admission were 94% on room air.) Cardiovascular: Normal Peripheral Pulses, No Edema, Tachycardia GI/Abdominal: Normal Bowel Sounds, Soft, Non-Tender, No Organomegaly Back Exam: Normal Inspection, Full Range of Motion Extremities: Normal Inspection, Normal Range of Motion, Non-Tender, No Pedal Edema, Normal Capillary Refill Neurological: Other (when talked to pt will respond. She is incoherent on what has been going on. confused to place and time. knows self. restless. Occasionally will answer appropriately. ) Psychiatric: Normal Affect Skin Exam: Warm, Dry, Intact Course - Vital Signs Last Recorded V/S: Last Vital Signs Temp 101 F H 02/08/20 16:30 Pulse 118 H 02/08/20 16:30 Resp 20 02/08/20 16:30 BP 107/46 L 02/08/20 16:30 Pulse Ox 94 L 02/08/20 16:30 - Orders/Labs/Meds Orders: Active Orders 24 hr Category Date Time Status Abdomen Pelvis w Cont [CT] Routine Exams 02/08/20 Ordered Chest w Cont [CT] Routine Exams 02/08/20 Ordered Head wo Cont [CT] Stat Exams 02/08/20 16:38 Ordered CULTURE BLOOD [BC] Stat Lab 02/08/20 16:43 Ordered CULTURE BLOOD [BC] Stat Lab 02/08/20 16:48 Received Acetaminophen [TylenoL] Med 02/08/20 18:09 Once 650 mg PO NOW ONE Ampicillin 2 gm Med 02/08/20 18:01 Ordered Sodium Chloride 0.9% [Normal Saline] 50 ml IV ONETIME Ondansetron [Zofran] Med 02/08/20 18:05 Ordered 4 mg IVPUSH Q6H PRN Sodium Chloride 0.9% @ 100 MLS/HR(1,000ml) Med 02/08/20 17:30 Ordered Sodium Chloride 0.9% [Normal Saline] 1,000 ml IV ASDIRECTED Sodium Chloride 0.9% @ 100 MLS/HR(1,000ml) Med 02/08/20 18:15 Ordered Sodium Chloride 0.9% [Normal Saline] 1,000 ml IV ASDIRECTED Vancomycin 1.5 gm Med 02/08/20 18:02 Ordered Sodium Chloride 0.9% [Normal Saline] 250 ml IV ONETIME cefTRIAXone [Rocephin] Med 02/08/20 18:15 Once 1 gm IVPUSH ONETIME ONE cefTRIAXone [Rocephin] Med 02/08/20 17:30 Ordered 1 gm IVPUSH Q24H Blood Culture x2 Reflex Set [OM.PC] Stat Oth 02/08/20 16:43 Ordered Medication Orders Acetaminophen (Tylenol) 650 mg PO NOW ONE Stop: 02/08/20 18:10 Ceftriaxone Sodium (Rocephin) 1 gm IVPUSH Q24H [facility] Last Admin: 02/08/20 17:39 Dose: 1 gm Documented by: MATTIE Ceftriaxone Sodium (Rocephin) 1 gm IVPUSH ONETIME ONE Stop: 02/08/20 18:16 Sodium Chloride (Normal Saline) 1,000 mls @ 100 mls/hr IV ASDIRECTED ARNULFO Last Admin: 02/08/20 17:39 Dose: 100 mls/hr Documented by: MATTIE Ampicillin Sodium 2 gm/ Sodium (Chloride) 50 mls @ 100 mls/hr IV ONETIME ONE Stop: 02/08/20 18:30 Vancomycin HCl 1.5 gm/ Sodium (Chloride) 250 mls @ 167 mls/hr IV ONETIME ONE Stop: 02/08/20 19:31 Sodium Chloride (Normal Saline) 1,000 mls @ 100 mls/hr IV ASDIRECTED ARNULFO Ondansetron HCl (Zofran) 4 mg IVPUSH Q6H PRN PRN Reason: Nausea Labs: Laboratory Tests 02/08/20 02/08/20 02/08/20 Range/Units 16:48 16:48 16:48 WBC 14.5 H (5.0-10.0) 10^3/uL RBC 4.39 (4.00-5.50) 10^6/uL Hgb 14.1 (12.0-16.0) g/dL Hct 39.9 (37.0-47.0) % MCV 90.9 (82.0-94.0) fL MCH 32.1 H (27.0-32.0) pg MCHC 35.3 (33.0-38.0) g/dL RDW Coeff of Jacky 13.0 (11.0-15.0) % Plt Count 94 L (150-400) 10^3/uL Add Manual Diff Yes Neutrophils % (Manual) 71 (35-85) % Band Neutrophils % 25 H (0-5) % Lymphocytes % (Manual) 4 L (21-55) % D-Dimer, Quantitative 17.02 H (0.00-0.50) Sodium 123 L* (136-145) mEq/L Potassium 3.8 (3.5-5.0) mEq/L Chloride 88 L (98-106) mEq/L Carbon Dioxide 21 (21-32) mmol/L BUN 19 H D (7-18) mg/dL Creatinine 1.3 H D (0.6-1.0) mg/dL Est Cr Clr Drug Dosing TNP Estimated GFR (MDRD) 42 L (>=60) mL/min Glucose 256 H D (75-99) mg/dL Lactic Acid (0.4-2.0) mmol/L Calcium 9.3 (8.4-10.1) mg/dL Total Bilirubin 1.4 H (0.0-1.0) mg/dL AST 41 H (15-37) U/L ALT 38 (12-78) U/L Alkaline Phosphatase 98 (46-116) U/L Lactate Dehydrogenase 338 H (100-190) U/L Creatine Kinase 946 H (21-215) U/L Troponin I 0.022 (0.00-0.06) ng/mL C-Reactive Protein 37.1 H (0.2-0.8) mg/dL Total Protein 7.6 (6.4-8.2) g/dL Albumin 3.0 L (3.4-5.0) g/dL Urine Color (YELLOW) Urine Appearance (CLEAR) Urine pH (4.5-8.0) Ur Specific [place] (1.003-1.020) Urine Protein (NEGATIVE) mg/dL Urine Glucose (UA) (NEGATIVE) mg/dL Urine Ketones (NEGATIVE) mg/dL Urine Occult Blood (NEGATIVE) Urine Nitrite (NEGATIVE) Urine Bilirubin (NEGATIVE) Urine Urobilinogen (0.2-1.0) EU/dL Ur Leukocyte Esterase (NEGATIVE) U Hyaline Cast (Auto) (NOT SEEN) /LPF Urine RBC (0-5) /HPF Urine WBC (0-5) /HPF Ur Epithelial Cells (NOT SEEN) /HPF Urine Mucus (NOT SEEN) /HPF Urine Opiates Screen (NEGATIVE) Ur Oxycodone Screen (NEGATIVE) Urine Methadone Screen (NEGATIVE) Ur Barbiturates Screen (NEGATIVE) U Tricyclic Antidepress (NEGATIVE) Ur Phencyclidine Scrn (NEGATIVE) Ur Amphetamine Screen (NEGATIVE) U Methamphetamines Scrn (NEGATIVE) Urine MDMA Screen (NEGATIVE) U Benzodiazepines Scrn (NEGATIVE) Urine Cocaine Screen (NEGATIVE) U Marijuana (THC) Screen (NEGATIVE) 02/08/20 02/08/20 02/08/20 Range/Units 16:48 17:30 17:30 WBC (5.0-10.0) 10^3/uL RBC (4.00-5.50) 10^6/uL Hgb (12.0-16.0) g/dL Hct (37.0-47.0) % MCV (82.0-94.0) fL MCH (27.0-32.0) pg MCHC (33.0-38.0) g/dL RDW Coeff of Jacky (11.0-15.0) % Plt Count (150-400) 10^3/uL Add Manual Diff Neutrophils % (Manual) (35-85) % Band Neutrophils % (0-5) % Lymphocytes % (Manual) (21-55) % D-Dimer, Quantitative (0.00-0.50) Sodium (136-145) mEq/L Potassium (3.5-5.0) mEq/L Chloride (98-106) mEq/L Carbon Dioxide (21-32) mmol/L BUN (7-18) mg/dL Creatinine (0.6-1.0) mg/dL Est Cr Clr Drug Dosing Estimated GFR (MDRD) (>=60) mL/min Glucose (75-99) mg/dL Lactic Acid 5.2 H (0.4-2.0) mmol/L Calcium (8.4-10.1) mg/dL Total Bilirubin (0.0-1.0) mg/dL AST (15-37) U/L ALT (12-78) U/L Alkaline Phosphatase (46-116) U/L Lactate Dehydrogenase (100-190) U/L Creatine Kinase (21-215) U/L Troponin I (0.00-0.06) ng/mL C-Reactive Protein (0.2-0.8) mg/dL Total Protein (6.4-8.2) g/dL Albumin (3.4-5.0) g/dL Urine Color Dark yellow (YELLOW) Urine Appearance Clear (CLEAR) Urine pH 6.0 (4.5-8.0) Ur Specific [place] 1.025 H (1.003-1.020) Urine Protein 100 H (NEGATIVE) mg/dL Urine Glucose (UA) Negative (NEGATIVE) mg/dL Urine Ketones Negative (NEGATIVE) mg/dL Urine Occult Blood Moderate H (NEGATIVE) Urine Nitrite Negative (NEGATIVE) Urine Bilirubin Negative (NEGATIVE) Urine Urobilinogen 1.0 (0.2-1.0) EU/dL Ur Leukocyte Esterase Negative (NEGATIVE) U Hyaline Cast (Auto) Few H (NOT SEEN) /LPF Urine RBC 0-5 (0-5) /HPF Urine WBC Not seen (0-5) /HPF Ur Epithelial Cells Few H (NOT SEEN) /HPF Urine Mucus Moderate H (NOT SEEN) /HPF Urine Opiates Screen Negative (NEGATIVE) Ur Oxycodone Screen Negative (NEGATIVE) Urine Methadone Screen Negative (NEGATIVE) Ur Barbiturates Screen Negative (NEGATIVE) U Tricyclic Antidepress Negative (NEGATIVE) Ur Phencyclidine Scrn Negative (NEGATIVE) Ur Amphetamine Screen Negative (NEGATIVE) U Methamphetamines Scrn Negative (NEGATIVE) Urine MDMA Screen Negative (NEGATIVE) U Benzodiazepines Scrn Negative (NEGATIVE) Urine Cocaine Screen Negative (NEGATIVE) U Marijuana (THC) Screen Negative (NEGATIVE) 02/08/20 Range/Units 18:00 WBC (5.0-10.0) 10^3/uL RBC (4.00-5.50) 10^6/uL Hgb (12.0-16.0) g/dL Hct (37.0-47.0) % MCV (82.0-94.0) fL MCH (27.0-32.0) pg MCHC (33.0-38.0) g/dL RDW Coeff of Jacky (11.0-15.0) % Plt Count (150-400) 10^3/uL Add Manual Diff Neutrophils % (Manual) (35-85) % Band Neutrophils % (0-5) % Lymphocytes % (Manual) (21-55) % D-Dimer, Quantitative (0.00-0.50) Sodium 123 L* (136-145) mEq/L Potassium (3.5-5.0) mEq/L Chloride (98-106) mEq/L Carbon Dioxide (21-32) mmol/L BUN (7-18) mg/dL Creatinine (0.6-1.0) mg/dL Est Cr Clr Drug Dosing Estimated GFR (MDRD) (>=60) mL/min Glucose (75-99) mg/dL Lactic Acid (0.4-2.0) mmol/L Calcium (8.4-10.1) mg/dL Total Bilirubin (0.0-1.0) mg/dL AST (15-37) U/L ALT (12-78) U/L Alkaline Phosphatase (46-116) U/L Lactate Dehydrogenase (100-190) U/L Creatine Kinase (21-215) U/L Troponin I (0.00-0.06) ng/mL C-Reactive Protein (0.2-0.8) mg/dL Total Protein (6.4-8.2) g/dL Albumin (3.4-5.0) g/dL Urine Color (YELLOW) Urine Appearance (CLEAR) Urine pH (4.5-8.0) Ur Specific [place] (1.003-1.020) Urine Protein (NEGATIVE) mg/dL Urine Glucose (UA) (NEGATIVE) mg/dL Urine Ketones (NEGATIVE) mg/dL Urine Occult Blood (NEGATIVE) Urine Nitrite (NEGATIVE) Urine Bilirubin (NEGATIVE) Urine Urobilinogen (0.2-1.0) EU/dL Ur Leukocyte Esterase (NEGATIVE) U Hyaline Cast (Auto) (NOT SEEN) /LPF Urine RBC (0-5) /HPF Urine WBC (0-5) /HPF Ur Epithelial Cells (NOT SEEN) /HPF Urine Mucus (NOT SEEN) /HPF Urine Opiates Screen (NEGATIVE) Ur Oxycodone Screen (NEGATIVE) Urine Methadone Screen (NEGATIVE) Ur Barbiturates Screen (NEGATIVE) U Tricyclic Antidepress (NEGATIVE) Ur Phencyclidine Scrn (NEGATIVE) Ur Amphetamine Screen (NEGATIVE) U Methamphetamines Scrn (NEGATIVE) Urine MDMA Screen (NEGATIVE) U Benzodiazepines Scrn (NEGATIVE) Urine Cocaine Screen (NEGATIVE) U Marijuana (THC) Screen (NEGATIVE) Meds: Medications Generic Name Dose Route Start Last Admin Trade Name Freq PRN Reason Stop Dose Admin Acetaminophen 650 mg 02/08/20 18:09 Tylenol PO 02/08/20 18:10 NOW ONE Ceftriaxone Sodium 1 gm 02/08/20 17:30 02/08/20 17:39 Rocephin IVPUSH 1 gm Q24H ARNULFO Administration Ceftriaxone Sodium 1 gm 02/08/20 18:15 Rocephin IVPUSH 02/08/20 18:16 ONETIME ONE Sodium Chloride 1,000 mls @ 100 mls/hr 02/08/20 17:30 02/08/20 17:39 Normal Saline IV 100 mls/hr ASDIRECTED ARNULFO Administration Ampicillin Sodium 2 gm/ Sodium 50 mls @ 100 mls/hr 02/08/20 18:01 Chloride IV 02/08/20 18:30 ONETIME ONE Vancomycin HCl 1.5 gm/ Sodium 250 mls @ 167 mls/hr 02/08/20 18:02 Chloride IV 02/08/20 19:31 ONETIME ONE Sodium Chloride 1,000 mls @ 100 mls/hr 02/08/20 18:15 Normal Saline IV ASDIRECTED ARNULFO Ondansetron HCl 4 mg 02/08/20 18:05 Zofran IVPUSH Q6H PRN Nausea - Re-Assessments/Exams Free Text/Narrative Re-Assessment/Exam: 02/08/20 1750- Discussed case with Dr. Glynn hospitalist at [facility] and Dr. Khanna infectious disease. They will accept on transfer. They recommended Ampicillin 2 gm, Rocephin 2gm and vanco 1.5 gm be given. Also to fluid bolus her with 30 ml/kg/ NS. She will be transferred per ALS ambulance to [facility]. 02/08/20 18:00 Discussed with the benefits of transfer to include that she would have higher level of care, specialist and further testing. risks of transfer include worsening of her condition during transport and possible . risks of not transferring include that she would get worse and have to be transferred at that time, no access to specialists, and possible . wishes her to be transferred. Departure - Departure Time of Disposition: 18:58 Disposition: DC/Tfer to [facility] 02 Condition: Critical Clinical Impression: Septicemia - Discharge Information *PRESCRIPTION DRUG MONITORING PROGRAM REVIEWED*: Not Applicable *COPY OF PRESCRIPTION DRUG MONITORING REPORT IN PATIENT CODY: Not Applicable Referrals: Paulina Stacy PA [Primary Care Provider] - Additional Instructions: will transfer to [facility] ALS. Sepsis Event Note (ED) - Focused Exam Vital Signs: Vital Signs Temp Pulse Resp BP Pulse Ox 02/08/20 16:30 101 F H 118 H 20 107/46 L 94 L - Problem List & Annotations (1) Septicemia SNOMED Code(s): 93618508, 246672591 Code(s): A41.9 - SEPSIS, UNSPECIFIED ORGANISM Status: Acute Priority: High Current Visit: Yes - Problem List Review Problem List Initiated/Reviewed/Updated: Yes - My Orders Last 24 Hours: My Active Orders 02/08/20 Abdomen Pelvis w Cont [CT] Routine Chest w Cont [CT] Routine 02/08/20 16:38 Head wo Cont [CT] Stat 02/08/20 16:43 CULTURE BLOOD [BC] Stat Blood Culture x2 Reflex Set [OM.PC] Stat 02/08/20 16:48 CULTURE BLOOD [BC] Stat 02/08/20 17:30 Sodium Chloride 0.9% @ 100 MLS/HR(1,000ml) Sodium Chloride 0.9% [Normal Saline] 1,000 ml IV ASDIRECTED cefTRIAXone [Rocephin] 1 gm IVPUSH Q24H 02/08/20 18:01 Ampicillin 2 gm Sodium Chloride 0.9% [Normal Saline] 50 ml IV ONETIME 02/08/20 18:02 Vancomycin 1.5 gm Sodium Chloride 0.9% [Normal Saline] 250 ml IV ONETIME 02/08/20 18:05 Ondansetron [Zofran] 4 mg IVPUSH Q6H PRN 02/08/20 18:09 Acetaminophen [TylenoL] 650 mg PO NOW ONE 02/08/20 18:15 Sodium Chloride 0.9% @ 100 MLS/HR(1,000ml) Sodium Chloride 0.9% [Normal Saline] 1,000 ml IV ASDIRECTED cefTRIAXone [Rocephin] 1 gm IVPUSH ONETIME ONE - Assessment/Plan Last 24 Hours: My Active Orders 02/08/20 Abdomen Pelvis w Cont [CT] Routine Chest w Cont [CT] Routine 02/08/20 16:38 Head wo Cont [CT] Stat 02/08/20 16:43 CULTURE BLOOD [BC] Stat Blood Culture x2 Reflex Set [OM.PC] Stat 02/08/20 16:48 CULTURE BLOOD [BC] Stat 02/08/20 17:30 Sodium Chloride 0.9% @ 100 MLS/HR(1,000ml) Sodium Chloride 0.9% [Normal Saline] 1,000 ml IV ASDIRECTED cefTRIAXone [Rocephin] 1 gm IVPUSH Q24H 02/08/20 18:01 Ampicillin 2 gm Sodium Chloride 0.9% [Normal Saline] 50 ml IV ONETIME 02/08/20 18:02 Vancomycin 1.5 gm Sodium Chloride 0.9% [Normal Saline] 250 ml IV ONETIME 02/08/20 18:05 Ondansetron [Zofran] 4 mg IVPUSH Q6H PRN 02/08/20 18:09 Acetaminophen [TylenoL] 650 mg PO NOW ONE 02/08/20 18:15 Sodium Chloride 0.9% @ 100 MLS/HR(1,000ml) Sodium Chloride 0.9% [Normal Saline] 1,000 ml IV ASDIRECTED cefTRIAXone [Rocephin] 1 gm IVPUSH ONETIME ONE Plan: Transfer [facility].
[2020-02-08 17:16] LABS: SODIUM,NA 123 mEq/L (136-145)
[2020-02-08] MEDS ORDERED: Sodium Chloride 0.9% 1,000 ML IV SCH (17:30)
[2020-02-08] MEDS ORDERED: cefTRIAXone 1 GM Vial IVPUSH SCH (17:30)
[2020-02-08] MEDS ORDERED: Ampicillin 2 GM in Sodium Chloride 0.9% 50 ML IV ONE (18:01)
[2020-02-08] MEDS ORDERED: Ondansetron 4 MG/2 ML SDV IVPUSH PRN (18:05)
[2020-02-08] MEDS ORDERED: Acetaminophen 325 MG Tab PO ONE (18:09)
[2020-02-08] MEDS ORDERED: cefTRIAXone 1 GM Vial IVPUSH ONE (18:15)
[2020-02-08] MEDS: Sodium Chloride 0.9% 1,000 ML IV SCH ×2 (18:27→18:35)
== END 2020-02-08 20:10 ==
LOC: CC.ED 16:19
DX: A41.9 Sepsis, unspecified organism (principal); I10 Essential (primary) hypertension; E11.9 Type 2 diabetes mellitus without complications; F41.9 Anxiety disorder, unspecified; F32.9 Major depressive disorder, single episode, unspecified; Z79.84 Long term (current) use of oral hypoglycemic drugs; Z79.82 Long term (current) use of aspirin; Z79.02 Long term (current) use of antithrombotics/antiplatelets; Z79.899 Other long term (current) drug therapy
CPT/HCPCS: 36415; 70450; 71260; 74177; 80053; 80305-QW; 81001; 82550; 83605; 83615; 84295; 84484; 85025; 85379; 86140; 87040; 87077; 87186; 93005; 96374; 96375; 99285-25; A9270-GY; J0290; J0696; J2405; J3370; J7030; J7050

== ENCOUNTER 2020-03-05 19:31 | Inpatient (IN) | payer BC ==
[~2020-03-05 19:31] MED LIST: Enoxaparin 40 MG/0.4 ML Syringe SUBCUT SCH
[2020-03-05] MEDS ORDERED: Ondansetron 4 MG/2 ML SDV IVPUSH STA ×2 (19:50→23:32)
[2020-03-05] MEDS ORDERED: Sodium Chloride 0.9% 1,000 ML IV SCH (20:00)
[2020-03-05] MEDS ORDERED: Iopamidol 755 Mg/ML 100 ML Bottle IVPUSH ONE (20:45)
--- NOTE | 2020-03-05 21:11 | EDM.PDOC ---
ED HPI GENERAL MEDICAL PROBLEM - General Chief Complaint: Gastrointestinal Problem Stated Complaint: vomiting Time Seen by Provider: 03/05/20 19:53 Source of Information: Reports: Patient History Limitations: Reports: No Limitations - History of Present Illness INITIAL COMMENTS - FREE TEXT/NARRATIVE: Cherie Sampson is a 59 yo female who presents to the ED via private vehicle with karin rns of nausea and vomiting. She states she started having some abdominal discomfort this morning in the right lower quadrant of her abdomen. States she did have multiple episodes of vomiting today. Earlier she did have some right lower back/flank pain but that subsided as well. States she is being seen by home health and they felt she should be seen in the ED as they were concerned of a UTI. She is currently being followed by [facility] weekly via labs and have noticed her creatinine level to be elevating which concerned them of a UTI. She denies any urinary symptoms presently. 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 States the vomiting has been a little more today and just doesn't have an appetite. States the Rifampin she is taking really makes her nauseated and has been throwing up from it. Duration: Resolved Prior to Arrival (abdominal pain, continues to have nausea and vomiting) Location: Reports: Abdomen, Generalized - Related Data Allergies Allergy/AdvReac Type Severity Reaction Status Date / Time No Known Allergies Allergy Verified 03/05/20 19:52 Home Meds: Home Meds ALPRAZolam [Xanax] 0.25 mg PO TID PRN 03/10/18 [History] Aspirin [Low Dose Aspirin EC] 81 mg PO DAILY 03/10/18 [History] Cholecalciferol (Vitamin D3) [Vitamin D3] 5,000 units PO DAILY 03/10/18 [History] Citalopram [Citalopram HBr] 20 mg PO DAILY 03/10/18 [History] Losartan/Hydrochlorothiazide [Losartan-HCTZ 100-12.5 MG] 1 tab PO DAILY 03/10/18 [History] Magnesium Gluconate [Magonate] 500 mg PO DAILY 03/10/18 [History] [place]-3/DHA/Epa/Fish Oil [[place] 3 500 Softgel] 1,000 mg PO BEDTIME 03/10/18 [History] metFORMIN [Glucophage] 1,000 mg PO BIDMEALS 03/10/18 [History] Vit No.129/Iron/FA [ One Daily Tablet] 1 ea PO DAILY 01/19/19 [History] Ubidecarenone [Coq10] 1 each PO BID 01/19/19 [History] Vit A/C/E AC/Znox/Cupric Oxide [Eye Vitamin-Minerals Tablet] 1 ea PO DAILY 01/19/19 [History] Docusate Sodium 100 mg PO DAILY 03/05/20 [History] Furosemide 20 mg PO DAILY 03/05/20 [History] Potassium Chloride [Klor-Con 10] 10 meq PO DAILY 03/05/20 [History] Rifampin [Rifadin] 300 mg PO TID 03/05/20 [History] ceFAZolin [Ancef in D5W 2 GM/100 ML] 2 gm IV TID 03/05/20 [History] glipiZIDE [Glucotrol XL] 5 mg PO DAILY 03/05/20 [History] Past Medical History HEENT History: Reports: Impaired Vision Cardiovascular History: Reports: Heart Murmur, Hypertension, Other (See Below) Other Cardiovascular History: aortic stenosis Gastrointestinal History: Reports: Colon Polyp Musculoskeletal History: Reports: Osteoarthritis Psychiatric History: Reports: Anxiety, Depression Endocrine/Metabolic History: Reports: Diabetes, Type II Hematologic History: Reports: Other (See Below) Other Hematologic History: Factor V Leiden - Past Surgical History Cardiovascular Surgical History: Reports: Other (See Below) Other Cardiovascular Surgeries/Procedures: said she had a leaky heart valve for years. Said her surgery was low risk, and that they approved for her to do a KATHARINE, said she has incisions bilat groin, healing. Since TAVR: some SOB but improved from before surgery, GI Surgical History: Reports: Colonoscopy Female Surgical History: Reports: Breast Biopsy, D&C Musculoskeletal Surgical History: Reports: Arthroscopic Knee, Knee Replacement Other Musculoskeletal Surgeries/Procedures:: h/o knee surgeries Social & Family History - Family History Family Medical History: No Pertinent Family History - Tobacco Use Tobacco Use Status *Q: Former Tobacco User Used Tobacco, but Quit: Yes Month/Year Tobacco Last Used: 2019 - Caffeine Use Caffeine Use: Reports: Soda - Recreational Drug Use Recreational Drug Use: No - Living Situation & Occupation Living situation: Reports: , with Spouse Occupation: Employed ED ROS GENERAL - Review of Systems Review Of Systems: See Below Constitutional: Reports: Weakness, Fatigue, Decreased Appetite. Denies: Fever HEENT: Reports: No Symptoms Respiratory: Denies: Shortness of Breath, Cough Cardiovascular: Reports: No Symptoms GI/Abdominal: Reports: Abdominal Pain, Nausea, Vomiting. Denies: Constipation, Diarrhea ED EXAM, GI/ABD - Physical Exam Exam: See Below Exam Limited By: No Limitations General Appearance: Alert, No Apparent Distress, Obese, Other (acutely ill). No: Active Emesis Ears: Hearing Grossly Normal Nose: Normal Inspection, Normal Mucosa, No Blood Throat/Mouth: Normal Inspection, Normal Lips, Normal Voice, Other (dry oral mucosa) Head: Atraumatic, Normocephalic Neck: Normal Inspection, Supple Respiratory/Chest: No Respiratory Distress, Lungs Clear, Normal Breath Sounds, No Accessory Muscle Use Cardiovascular: Normal Peripheral Pulses, Regular Rate, Rhythm, No Edema, No Murmur GI/Abdominal Exam: Normal Bowel Sounds, Soft, Non-Tender, No Organomegaly, No Distention, No Mass. No: Distended, Guarding, Rebound Back Exam: No: CVA Tenderness (L), CVA Tenderness (R) Extremities: Normal Inspection Neurological: Alert, Oriented, Normal Cognition, No Motor/Sensory Deficits Psychiatric: Normal Affect, Normal Mood Skin Exam: Warm, Dry, Intact, Normal Color, No Rash Course - Vital Signs Last Recorded V/S: Last Vital Signs Temp 96.4 F L 03/05/20 19:43 Pulse 101 H 03/05/20 19:43 Resp 18 03/05/20 19:43 BP 124/77 03/05/20 19:43 Pulse Ox 95 03/05/20 19:43 - Orders/Labs/Meds Orders: Active Orders 24 hr Category Date Time Status Abdomen Pelvis w Cont [CT] Stat Exams 03/05/20 20:36 Taken CULTURE URINE [RM] Stat Lab 03/05/20 20:05 Received Magnesium Sulfate/D5W [Magnesium Sulfate in D5W 100 Med 03/05/20 21:34 Active Premix] 2 gm Premix Bag 1 bag IV ONETIME Sodium Chloride 0.9% [Normal Saline] 1,000 ml Med 03/05/20 20:00 Active IV ASDIRECTED Medication Orders Sodium Chloride (Normal Saline) 1,000 mls @ 200 mls/hr IV ASDIRECTED ARNULFO Last Admin: 03/05/20 21:12 Dose: 200 mls/hr Documented by: ALINA Magnesium Sulfate/Dextrose 2 (gm/ Premix) 200 mls @ 100 mls/hr IV ONETIME ONE Stop: 03/05/20 23:33 Last Admin: 03/05/20 21:39 Dose: 100 mls/hr Documented by: ALINA Labs: Laboratory Tests 03/05/20 03/05/20 03/05/20 Range/Units 20:05 20:05 20:05 WBC 13.5 H (5.0-10.0) 10^3/uL RBC 3.28 L (4.00-5.50) 10^6/uL Hgb 10.4 L (12.0-16.0) g/dL Hct 30.6 L (37.0-47.0) % MCV 93.3 (82.0-94.0) fL MCH 31.7 (27.0-32.0) pg MCHC 34.0 (33.0-38.0) g/dL RDW Coeff of Jacky 14.1 (11.0-15.0) % Plt Count 201 (150-400) 10^3/uL MPV Cancelled Neut % (Auto) 81.0 (35-85) % Lymph % (Auto) 10.0 (10-55) % Kenton % (Auto) 8.5 (0-16) % Eos % (Auto) 0.4 (0-5) % Baso % (Auto) 0.1 (0-3) % Neut # (Auto) 10.80 H (1.80-7.00) 10^3/uL Lymph # (Auto) 1.34 (1.00-4.80) 10^3/uL Kenton # (Auto) 1.14 H (0.00-0.80) 10^3/uL Eos # (Auto) 0.05 (0.00-0.45) 10^3/uL Baso # (Auto) 0.02 10^3/uL Sodium 124 L* (136-145) mEq/L Potassium 3.9 (3.5-5.0) mEq/L Chloride 89 L (98-106) mEq/L Carbon Dioxide 25 (21-32) mmol/L BUN 12 (7-18) mg/dL Creatinine 1.1 H (0.6-1.0) mg/dL Est Cr Clr Drug Dosing 48.33 mL/min Estimated GFR (MDRD) 50 L (>=60) mL/min Glucose 123 H D (75-99) mg/dL Lactic Acid (0.4-2.0) mmol/L Calcium 8.4 (8.4-10.1) mg/dL Magnesium 1.2 L (1.8-2.4) mg/dL Total Bilirubin 1.2 H (0.0-1.0) mg/dL AST 45 H (15-37) U/L ALT 11 L (12-78) U/L Alkaline Phosphatase 120 H (46-116) U/L C-Reactive Protein 13.9 H (0.2-0.8) mg/dL Total Protein 7.7 (6.4-8.2) g/dL Albumin 2.1 L (3.4-5.0) g/dL Urine Color Urmila (YELLOW) Urine Appearance Slightly cloudy (CLEAR) Urine pH 5.5 (4.5-8.0) Ur Specific [place] 1.025 H (1.003-1.020) Urine Protein 100 H (NEGATIVE) mg/dL Urine Glucose (UA) Negative (NEGATIVE) mg/dL Urine Ketones Negative (NEGATIVE) mg/dL Urine Occult Blood Trace-lysed H (NEGATIVE) Urine Nitrite Negative (NEGATIVE) Urine Bilirubin Small H (NEGATIVE) Urine Urobilinogen 0.2 (0.2-1.0) EU/dL Ur Leukocyte Esterase Negative (NEGATIVE) Urine RBC 5-10 H (0-5) /HPF Urine WBC 50-75 H (0-5) /HPF Ur Epithelial Cells Many H (NOT SEEN) /HPF Urine Bacteria Moderate H (NOT SEEN) /HPF Granular Casts (Auto) Few H (NOT SEEN) /LPF Urine Yeast Few H (NOT SEEN) /HPF 11/10/20 Range/Units 20:05 WBC (5.0-10.0) 10^3/uL RBC (4.00-5.50) 10^6/uL Hgb (12.0-16.0) g/dL Hct (37.0-47.0) % MCV (82.0-94.0) fL MCH (27.0-32.0) pg MCHC (33.0-38.0) g/dL RDW Coeff of Jacky (11.0-15.0) % Plt Count (150-400) 10^3/uL MPV Neut % (Auto) (35-85) % Lymph % (Auto) (10-55) % Kenton % (Auto) (0-16) % Eos % (Auto) (0-5) % Baso % (Auto) (0-3) % Neut # (Auto) (1.80-7.00) 10^3/uL Lymph # (Auto) (1.00-4.80) 10^3/uL Kenton # (Auto) (0.00-0.80) 10^3/uL Eos # (Auto) (0.00-0.45) 10^3/uL Baso # (Auto) 10^3/uL Sodium (136-145) mEq/L Potassium (3.5-5.0) mEq/L Chloride (98-106) mEq/L Carbon Dioxide (21-32) mmol/L BUN (7-18) mg/dL Creatinine (0.6-1.0) mg/dL Est Cr Clr Drug Dosing mL/min Estimated GFR (MDRD) (>=60) mL/min Glucose (75-99) mg/dL Lactic Acid 3.2 H (0.4-2.0) mmol/L Calcium (8.4-10.1) mg/dL Magnesium (1.8-2.4) mg/dL Total Bilirubin (0.0-1.0) mg/dL AST (15-37) U/L ALT (12-78) U/L Alkaline Phosphatase (46-116) U/L C-Reactive Protein (0.2-0.8) mg/dL Total Protein (6.4-8.2) g/dL Albumin (3.4-5.0) g/dL Urine Color (YELLOW) Urine Appearance (CLEAR) Urine pH (4.5-8.0) Ur Specific [place] (1.003-1.020) Urine Protein (NEGATIVE) mg/dL Urine Glucose (UA) (NEGATIVE) mg/dL Urine Ketones (NEGATIVE) mg/dL Urine Occult Blood (NEGATIVE) Urine Nitrite (NEGATIVE) Urine Bilirubin (NEGATIVE) Urine Urobilinogen (0.2-1.0) EU/dL Ur Leukocyte Esterase (NEGATIVE) Urine RBC (0-5) /HPF Urine WBC (0-5) /HPF Ur Epithelial Cells (NOT SEEN) /HPF Urine Bacteria (NOT SEEN) /HPF Granular Casts (Auto) (NOT SEEN) /LPF Urine Yeast (NOT SEEN) /HPF Meds: Medications Generic Name Dose Route Start Last Admin Trade Name Freq PRN Reason Stop Dose Admin Sodium Chloride 1,000 mls @ 200 mls/hr 03/05/20 20:00 03/05/20 21:12 Normal Saline IV 200 mls/hr ASDIRECTED ARNULFO Administration Magnesium Sulfate/Dextrose 2 200 mls @ 100 mls/hr 03/05/20 21:34 03/05/20 21:39 gm/ Premix IV 03/05/20 23:33 100 mls/hr ONETIME ONE Administration Discontinued Medications Generic Name Dose Route Start Last Admin Trade Name Freq PRN Reason Stop Dose Admin Iopamidol 100 ml 03/05/20 20:45 03/05/20 21:18 Isovue-370 (76%) IVPUSH 03/05/20 20:46 100 ml ONETIME ONE Administration Ondansetron HCl 4 mg 03/05/20 19:50 03/05/20 20:00 Zofran IVPUSH 03/05/20 19:51 4 mg STAT STA Administration - Radiology Interpretation Free Text/Narrative:: Radiologist consultation with no signs of appendicitis. Concerns for possible right lower pole infarct of the kidney. CT Results Date: 03/05/20 Departure - Departure Time of Disposition: 22:35 Disposition: Admitted As Inpatient 64 Clinical Impression: Dehydration with hyponatremia, Hypomagnesemia, Renal infarct - Discharge Information Sepsis Event Note (ED) - Evaluation Sepsis Screening Result: No Definite Risk - Focused Exam Vital Signs: Vital Signs Temp Pulse Resp BP Pulse Ox 03/05/20 19:43 96.4 F L 101 H 18 124/77 95 - Problem List & Annotations (1) Dehydration with hyponatremia SNOMED Code(s): 67724733 Code(s): E86.0 - DEHYDRATION; E87.1 - HYPO-OSMOLALITY AND HYPONATREMIA Status: Acute Current Visit: Yes (2) Hypomagnesemia SNOMED Code(s): 864812768 Code(s): E83.42 - HYPOMAGNESEMIA Status: Acute Current Visit: Yes (3) Renal infarct SNOMED Code(s): 97198483 Code(s): N28.0 - ISCHEMIA AND INFARCTION OF KIDNEY Status: Acute Current Visit: Yes - Problem List Review Problem List Initiated/Reviewed/Updated: Yes - My Orders Last 24 Hours: My Active Orders 03/05/20 20:00 Sodium Chloride 0.9% [Normal Saline] 1,000 ml IV ASDIRECTED 03/05/20 20:05 CULTURE URINE [RM] Stat 03/05/20 20:36 Abdomen Pelvis w Cont [CT] Stat 03/05/20 21:34 Magnesium Sulfate/D5W [Magnesium Sulfate in D5W 100 Premix] 2 gm Premix Bag 1 bag IV ONETIME - Assessment/Plan Admission H&P: Please use this note as an admission H&P Last 24 Hours: My Active Orders 03/05/20 20:00 Sodium Chloride 0.9% [Normal Saline] 1,000 ml IV ASDIRECTED 03/05/20 20:05 CULTURE URINE [RM] Stat 03/05/20 20:36 Abdomen Pelvis w Cont [CT] Stat 03/05/20 21:34 Magnesium Sulfate/D5W [Magnesium Sulfate in D5W 100 Premix] 2 gm Premix Bag 1 bag IV ONETIME Plan: After receiving CT report, consulted with [facility] in [place] for placement, unfortunately they are on diversion. Consulted with urologist, Dr. Bolanos, at [facility] in [place]. Discussed patient's findings on CT scan and didn't feel anything acute needed to be done at this time. Recommended following up with interventional radiology. Discussed findings with Dr. Pedroza and will admit to the facility under acute care. Dr. Pedroza in agreement with admission. Concerns of UTI as well and will give 1 gram of Rocephin IV to cover gram negative bacteria. 2 grams of magnesium sulfate given for hypomagnesemia. IV fluids currently running at 125ml/hr. Will hold metformin with recent IV contrast use. Discussed findings with Cherie Sampson and her daughter (via phone) in regards to her condition and findings. Patient transferred to floor in stable condition.
[2020-03-05] MEDS ORDERED: Magnesium Sulfate/D5W 2 GM in Premix Bag 1 BAG IV ONE (21:34)
[2020-03-05] MEDS ORDERED: Acetaminophen 325 MG Tab PO PRN (22:51)
[2020-03-05] MEDS ORDERED: ALPRAZolam 0.25 MG Tab PO PRN (22:51)
[2020-03-05] MEDS ORDERED: Pantoprazole 40 MG Vial IVPUSH SCH (23:00)
[2020-03-05] MEDS ORDERED: ceFAZolin 1 GM Vial IVPUSH SCH (23:02)
[2020-03-05] MEDS: Sodium Chloride 0.9% 1,000 ML IV SCH (23:18)
[2020-03-06] MEDS: cefTRIAXone 1 GM Vial IVPUSH SCH (00:33)
[2020-03-06] MEDS: ceFAZolin 1 GM Vial IVPUSH SCH ×4 (00:34→22:47)
[2020-03-06] MEDS: Rifampin 300 MG Cap PO SCH ×2 (00:51→09:49)
[2020-03-06] MEDS: Promethazine 25 MG in Sodium Chloride 0.9% 100 ML IV PRN ×2 (02:12→09:19)
[2020-03-06] MEDS ORDERED: Morphine 2 MG/ML SYRINGE IVPUSH ONE (02:18)
[2020-03-06] MEDS ORDERED: fentaNYL 100 MCG/2 ML SDV IVPUSH ONE (06:43)
[2020-03-06] MEDS ORDERED: fentaNYL 100 MCG/2 ML SDV ONE (07:13)
--- NOTE | 2020-03-06 07:26 | PCM.PN ---
- General Info Date of Service: 03/06/20 Subjective Update: Cherie Fletcher is a 59 yo female who was admitted to the hospital with dehydration and concerns of possible renal infarct to the right lower pole of kidney. Consulted with Kristy Bob last night prior to admission in which they were on diversion. Consulted with urology if anything further was needed tonight. She had been having episodes of vomiting that has been getting worse the last couple of days. She continued to have episodes of emesis thru out the night and we switched to promethazine for nausea. She states she started to develop some right lower quadrant abdominal pain again and rates it a 4 out of 10. Staff did call with increased discomfort and we gave her 50mcg of Fentanyl intravenously. Tylenol was given prior without any relief. Functional Status: Reports: Ambulating (with assistance) Pain Score: 4 - Review of Systems General: Reports: Weakness, Malaise. Denies: Fever HEENT: Reports: No Symptoms Pulmonary: Reports: No Symptoms Cardiovascular: Reports: No Symptoms Gastrointestinal: Reports: Abdominal Pain (RLQ ), Nausea, Vomiting. Denies: Constipation, Diarrhea Genitourinary: Reports: Flank Pain (right flank). Denies: Pain, Urgency Musculoskeletal: Reports: No Symptoms Skin: Reports: No Symptoms Neurological: Reports: No Symptoms - Patient Data Vitals - Most Recent: Last Vital Signs Temp 96.9 F 03/06/20 06:47 Pulse 91 03/06/20 06:47 Resp 18 03/06/20 06:47 BP 121/71 03/06/20 06:47 Pulse Ox 96 03/06/20 06:47 Weight - Most Recent: 225 lb I&O - Last 24 Hours: Intake & Output 03/05/20 03/06/20 03/06/20 22:59 06:59 14:59 Intake Total 400 Balance 400 Lab Results Last 24 Hours: Laboratory Results - last 24 hr 03/05/20 03/05/20 03/05/20 Range/Units 20:05 20:05 20:05 WBC 13.5 H (5.0-10.0) 10^3/uL RBC 3.28 L (4.00-5.50) 10^6/uL Hgb 10.4 L (12.0-16.0) g/dL Hct 30.6 L (37.0-47.0) % MCV 93.3 (82.0-94.0) fL MCH 31.7 (27.0-32.0) pg MCHC 34.0 (33.0-38.0) g/dL RDW Coeff of Jacky 14.1 (11.0-15.0) % Plt Count 201 (150-400) 10^3/uL MPV Cancelled Neut % (Auto) 81.0 (35-85) % Lymph % (Auto) 10.0 (10-55) % [place] % (Auto) 8.5 (0-16) % Eos % (Auto) 0.4 (0-5) % Baso % (Auto) 0.1 (0-3) % Neut # (Auto) 10.80 H (1.80-7.00) 10^3/uL Lymph # (Auto) 1.34 (1.00-4.80) 10^3/uL [place] # (Auto) 1.14 H (0.00-0.80) 10^3/uL Eos # (Auto) 0.05 (0.00-0.45) 10^3/uL Baso # (Auto) 0.02 10^3/uL Sodium 124 L* (136-145) mEq/L Potassium 3.9 (3.5-5.0) mEq/L Chloride 89 L (98-106) mEq/L Carbon Dioxide 25 (21-32) mmol/L BUN 12 (7-18) mg/dL Creatinine 1.1 H (0.6-1.0) mg/dL Est Cr Clr Drug Dosing 48.33 mL/min Estimated GFR (MDRD) 50 L (>=60) mL/min Glucose 123 H D (75-99) mg/dL Lactic Acid (0.4-2.0) mmol/L Calcium 8.4 (8.4-10.1) mg/dL Magnesium 1.2 L (1.8-2.4) mg/dL Total Bilirubin 1.2 H (0.0-1.0) mg/dL AST 45 H (15-37) U/L ALT 11 L (12-78) U/L Alkaline Phosphatase 120 H (46-116) U/L C-Reactive Protein 13.9 H (0.2-0.8) mg/dL Total Protein 7.7 (6.4-8.2) g/dL Albumin 2.1 L (3.4-5.0) g/dL Urine Color [place] (YELLOW) Urine Appearance Slightly cloudy (CLEAR) Urine pH 5.5 (4.5-8.0) Ur Specific [place] 1.025 H (1.003-1.020) Urine Protein 100 H (NEGATIVE) mg/dL Urine Glucose (UA) Negative (NEGATIVE) mg/dL Urine Ketones Negative (NEGATIVE) mg/dL Urine Occult Blood Trace-lysed H (NEGATIVE) Urine Nitrite Negative (NEGATIVE) Urine Bilirubin Small H (NEGATIVE) Urine Urobilinogen 0.2 (0.2-1.0) EU/dL Ur Leukocyte Esterase Negative (NEGATIVE) Urine RBC 5-10 H (0-5) /HPF Urine WBC 50-75 H (0-5) /HPF Ur Epithelial Cells Many H (NOT SEEN) /HPF Urine Bacteria Moderate H (NOT SEEN) /HPF Granular Casts (Auto) Few H (NOT SEEN) /LPF Urine Yeast Few H (NOT SEEN) /HPF 03/05/20 Range/Units 20:05 WBC (5.0-10.0) 10^3/uL RBC (4.00-5.50) 10^6/uL Hgb (12.0-16.0) g/dL Hct (37.0-47.0) % MCV (82.0-94.0) fL MCH (27.0-32.0) pg MCHC (33.0-38.0) g/dL RDW Coeff of Jacky (11.0-15.0) % Plt Count (150-400) 10^3/uL MPV Neut % (Auto) (35-85) % Lymph % (Auto) (10-55) % [place] % (Auto) (0-16) % Eos % (Auto) (0-5) % Baso % (Auto) (0-3) % Neut # (Auto) (1.80-7.00) 10^3/uL Lymph # (Auto) (1.00-4.80) 10^3/uL [place] # (Auto) (0.00-0.80) 10^3/uL Eos # (Auto) (0.00-0.45) 10^3/uL Baso # (Auto) 10^3/uL Sodium (136-145) mEq/L Potassium (3.5-5.0) mEq/L Chloride (98-106) mEq/L Carbon Dioxide (21-32) mmol/L BUN (7-18) mg/dL Creatinine (0.6-1.0) mg/dL Est Cr Clr Drug Dosing mL/min Estimated GFR (MDRD) (>=60) mL/min Glucose (75-99) mg/dL Lactic Acid 3.2 H (0.4-2.0) mmol/L Calcium (8.4-10.1) mg/dL Magnesium (1.8-2.4) mg/dL Total Bilirubin (0.0-1.0) mg/dL AST (15-37) U/L ALT (12-78) U/L Alkaline Phosphatase (46-116) U/L C-Reactive Protein (0.2-0.8) mg/dL Total Protein (6.4-8.2) g/dL Albumin (3.4-5.0) g/dL Urine Color (YELLOW) Urine Appearance (CLEAR) Urine pH (4.5-8.0) Ur Specific [place] (1.003-1.020) Urine Protein (NEGATIVE) mg/dL Urine Glucose (UA) (NEGATIVE) mg/dL Urine Ketones (NEGATIVE) mg/dL Urine Occult Blood (NEGATIVE) Urine Nitrite (NEGATIVE) Urine Bilirubin (NEGATIVE) Urine Urobilinogen (0.2-1.0) EU/dL Ur Leukocyte Esterase (NEGATIVE) Urine RBC (0-5) /HPF Urine WBC (0-5) /HPF Ur Epithelial Cells (NOT SEEN) /HPF Urine Bacteria (NOT SEEN) /HPF Granular Casts (Auto) (NOT SEEN) /LPF Urine Yeast (NOT SEEN) /HPF Med Orders - Current: Current Medications Acetaminophen (Tylenol) 650 mg PO Q4H PRN PRN Reason: Pain (Mild 1-3)/fever Last Admin: 03/06/20 03:42 Dose: 650 mg Documented by: Alprazolam (Xanax) 0.25 mg PO TID PRN PRN Reason: Anxiety Aspirin (Halfprin) 81 mg PO DAILY [facility] Cefazolin Sodium (Ancef) 2 gm IVPUSH TID@0600,1400,2200 [facility] Last Admin: 03/06/20 07:00 Dose: 2 gm Documented by: Ceftriaxone Sodium (Rocephin) 1 gm IVPUSH Q24H [facility] Last Admin: 03/06/20 00:33 Dose: 1 gm Documented by: Citalopram Hydrobromide (Celexa) 20 mg PO DAILY [facility] Docusate Sodium (Colace) 100 mg PO DAILY [facility] Enoxaparin Sodium (Lovenox) 40 mg SUBCUT Q24H [facility] Fluconazole (Diflucan) 100 mg PO DAILY [facility] Furosemide (Lasix) 20 mg PO DAILY [facility] Glipizide (Glucotrol Xl) 5 mg PO DAILY [facility] Hydrochlorothiazide (Hydrochlorothiazide) 12.5 mg PO DAILY [facility] Sodium Chloride (Normal Saline) 1,000 mls @ 125 mls/hr IV ASDIRECTED [facility] Last Admin: 03/05/20 23:18 Dose: 125 mls/hr Documented by: Promethazine HCl 25 mg/ Sodium (Chloride) 101 mls @ 400 mls/hr IV Q4H PRN PRN Reason: nausea Last Admin: 03/06/20 02:12 Dose: 400 mls/hr Documented by: Losartan Potassium (Cozaar) 100 mg PO DAILY [facility] Magnesium Oxide (Magnesium Oxide) 500 mg PO DAILY [facility] Pantoprazole Sodium (Protonix Iv) 40 mg IVPUSH Q24H [facility] Potassium Chloride (Klor-Con 10) 10 meq PO DAILY [facility] Rifampin (Rifampin) 300 mg PO TID [facility] Last Admin: 03/06/20 00:51 Dose: Not Given Documented by: Discontinued Medications Cefazolin Sodium (Ancef) 2 gm IVPUSH TID [facility] Last Admin: 03/06/20 00:56 Dose: Not Given Documented by: Fentanyl (Sublimaze) 50 mcg IVPUSH ONETIME ONE Stop: 03/06/20 06:44 Last Admin: 03/06/20 07:07 Dose: 50 mcg Documented by: Fentanyl (Sublimaze) Confirm Administered Dose 100 mcg .ROUTE .STK-MED ONE Stop: 03/06/20 07:14 Last Admin: 03/06/20 07:07 Dose: Not Given Documented by: Sodium Chloride (Normal Saline) 1,000 mls @ 200 mls/hr IV ASDIRECTED [facility] Last Admin: 03/05/20 21:12 Dose: 200 mls/hr Documented by: Magnesium Sulfate/Dextrose 2 (gm/ Premix) 200 mls @ 100 mls/hr IV ONETIME ONE Stop: 03/05/20 23:33 Last Admin: 03/05/20 21:39 Dose: 100 mls/hr Documented by: Iopamidol (Isovue-370 (76%)) 100 ml IVPUSH ONETIME ONE Stop: 03/05/20 20:46 Last Admin: 03/05/20 21:18 Dose: 100 ml Documented by: Morphine Sulfate (Morphine) 2 mg IVPUSH ONETIME ONE Stop: 03/06/20 02:19 Last Admin: 03/06/20 02:32 Dose: 2 mg Documented by: Non-Formulary Medication (Cefazolin [Ancef In D5w 2 Gm/100 Ml]) 2 gm IV TID [facility] Ondansetron HCl (Zofran) 4 mg IVPUSH STAT STA Stop: 03/05/20 19:51 Last Admin: 03/05/20 20:00 Dose: 4 mg Documented by: Ondansetron HCl (Zofran) 4 mg IVPUSH NOW STA Stop: 03/05/20 23:33 Last Admin: 03/06/20 00:34 Dose: 4 mg Documented by: Pantoprazole Sodium (Protonix Iv) 40 mg IVPUSH Q24H [facility] Last Admin: 03/06/20 00:56 Dose: Not Given Documented by: Rifampin (Rifampin) 300 mg PO TID [facility] - Exam Quality Assessment: Central Line/PICC General: Alert, Oriented, Cooperative, No Acute Distress Lungs: Clear to Auscultation, Normal Respiratory Effort Cardiovascular: Regular Rate, Regular Rhythm, No Murmurs GI/Abdominal Exam: Soft, No Mass. No: Distended, Guarding, Rebound Back Exam: No: CVA Tenderness (L), CVA Tenderness (R) Extremities: Normal Inspection, No Pedal Edema Skin: Warm, Dry, Intact Psy/Mental Status: Alert, Normal Mood Sepsis Event Note - Evaluation Sepsis Screening Result: No Definite Risk - Focused Exam Vital Signs: Vital Signs Temp Pulse Resp BP Pulse Ox 03/06/20 06:47 96.9 F 91 18 121/71 96 03/06/20 03:48 97.6 F 93 18 115/78 98 03/06/20 00:00 98.1 F 78 20 134/78 96 03/05/20 19:43 96.4 F L 101 H 18 124/77 95 - Problem List & Annotations (1) Dehydration with hyponatremia SNOMED Code(s): 74190588 Code(s): E86.0 - DEHYDRATION; E87.1 - HYPO-OSMOLALITY AND HYPONATREMIA Status: Acute Current Visit: Yes (2) Hypomagnesemia SNOMED Code(s): 796129321 Code(s): E83.42 - HYPOMAGNESEMIA Status: Acute Current Visit: Yes (3) Renal infarct SNOMED Code(s): 36178864 Code(s): N28.0 - ISCHEMIA AND INFARCTION OF KIDNEY Status: Acute Current Visit: Yes - Problem List Review Problem List Initiated/Reviewed/Updated: Yes - My Orders Last 24 Hours: My Active Orders 03/05/20 Breakfast Regular Diet [DIET] 03/05/20 20:05 CULTURE URINE [RM] Stat 03/05/20 20:36 Abdomen Pelvis w Cont [CT] Stat 03/05/20 22:36 Resuscitation Status Routine 03/05/20 22:51 ALPRAZolam [Xanax] 0.25 mg PO TID PRN Acetaminophen [TylenoL] 650 mg PO Q4H PRN Sodium Chloride 0.9% [Normal Saline] 1,000 ml IV ASDIRECTED 03/05/20 22:51 Patient Status [ADT] Routine Blood Glucose Check, Bedside [RC] 0730,1700 Intake and Output [RC] 0600,1800 Oxygen Therapy [RC] .PRN Pulse Oximetry [RC] .PRN Up With Assistance [RC] .PRN Vital Signs [RC] 0000,0400,0800,1200,1600,2000 03/05/20 23:02 rifAMPin 300 mg PO TID 03/05/20 23:45 ceFAZolin [Ancef] 2 gm IVPUSH TID@0600,1400,2200 03/06/20 00:00 cefTRIAXone [Rocephin] 1 gm IVPUSH Q24H 03/06/20 01:32 Promethazine [Phenergan] 25 mg Sodium Chloride 0.9% [Normal Saline] 100 ml IV Q4H 03/06/20 05:11 C-REACTIVE PROTEIN [CHEM] AM CBC WITH AUTO DIFF [HEME] AM COMPREHENSIVE METABOLIC PN,CMP [CHEM] AM LACTIC ACID [CHEM] AM MAGNESIUM [CHEM] AM 03/06/20 08:00 Aspirin [Halfprin] 81 mg PO DAILY Citalopram [Celexa] 20 mg PO DAILY Docusate Sodium [Colace] 100 mg PO DAILY Enoxaparin [Lovenox] 40 mg SUBCUT Q24H Fluconazole [Diflucan] 100 mg PO DAILY Furosemide [Lasix] 20 mg PO DAILY Losartan [Cozaar] 100 mg PO DAILY Magnesium Oxide 500 mg PO DAILY Pantoprazole [ProTONIX IV] 40 mg IVPUSH Q24H Potassium Chloride [Klor-Con 10] 10 meq PO DAILY glipiZIDE [Glucotrol XL] 5 mg PO DAILY hydroCHLOROthiazide 12.5 mg PO DAILY 03/07/20 05:11 C-REACTIVE PROTEIN [CHEM] AM CBC WITH AUTO DIFF [HEME] AM COMPREHENSIVE METABOLIC PN,CMP [CHEM] AM LACTIC ACID [CHEM] AM MAGNESIUM [CHEM] AM - Assessment Assessment:: Dehydration 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 Pain was a 4 out of 10 and given 50mcg of Fentanyl. States she feels about the same as yesterday. With concerns of increased pain thru the night did consult with Dr. Lyles, hospitalist at [facility], in [place]. Discussed current treatment and concerns of possible renal infarct. Dr. Lyles didn't feel anything else needed to be done. 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 Recommended consulting with Dr. Mi ([facility]) where patient was transferred to and recently discharged. Currently waiting software applications engineer back from [facility] in [place], [place]. Patient's labs today have overall improved. Creatinine remains stable at 1.1[place] [address] today. CRP improved. Magnesium corrected to 1.9 up from 1.2. Lactic acid improved to within normal range today. Reassessment of patient and current denies any discomfort. Continues to be nauseated but denies any recent emesis this morning.
[2020-03-06] MEDS: Pantoprazole 40 MG Vial IVPUSH SCH (07:36)
[2020-03-06] MEDS: Furosemide 20 MG Tab PO SCH (07:37)
[2020-03-06] MEDS: Aspirin 81 MG Tab.EC PO SCH (07:37)
[2020-03-06] MEDS: Enoxaparin 40 MG/0.4 ML Syringe SUBCUT SCH (07:37)
[2020-03-06] MEDS: Docusate Sodium 100 MG Cap PO SCH (07:37)
[2020-03-06] MEDS: Losartan 100 MG Tab PO SCH (07:37)
[2020-03-06] MEDS: Fluconazole 100 MG Tab PO SCH (07:38)
[2020-03-06] MEDS: Citalopram 10 MG Tab PO SCH (07:38)
[2020-03-06] MEDS: Potassium Chloride 10 MEQ Tab.ER PO SCH (07:38)
[2020-03-06] MEDS: Hydrochlorothiazide 12.5 MG Cap PO SCH (07:38)
[2020-03-06] MEDS: glipiZIDE 5 MG Tab.ER PO SCH ×2 (07:42→09:11)
[2020-03-06] MEDS ORDERED: CEFAZOLIN 2 GM IV SCH (08:00)
[2020-03-06] MEDS ORDERED: Rifampin 300 MG Cap PO SCH (08:00)
[2020-03-06] MEDS ORDERED: [UNRECOGNIZED DRUG - OTHER] IV SCH (08:00)
[2020-03-06] MEDS: RIFAMPIN 300 MG PO SCH ×3 (09:25→19:33)
[2020-03-06] MEDS ORDERED: Metoclopramide 10 MG/2 ML SDV IVPUSH PRN (15:44)
[2020-03-06] MEDS: Sodium Chloride 0.9% 1,000 ML IV SCH ×2 (16:04→22:53)
[2020-03-06] MEDS ORDERED: fentaNYL 100 MCG/2 ML SDV IVPUSH PRN (19:19)
[2020-03-07] MEDS: cefTRIAXone 1 GM Vial IVPUSH SCH (00:06)
[2020-03-07] MEDS: ceFAZolin 1 GM Vial IVPUSH SCH ×2 (06:00→15:14)
[2020-03-07] MEDS: Sodium Chloride 0.9% 1,000 ML IV SCH (06:06)
[2020-03-07 07:34] LABS: CHLORIDE,CL 92 mEq/L (98-106); SODIUM,NA 125 mEq/L (136-145)
[2020-03-07] MEDS: Hydrochlorothiazide 12.5 MG Cap PO SCH (08:11)
[2020-03-07] MEDS: Potassium Chloride 10 MEQ Tab.ER PO SCH (08:12)
[2020-03-07] MEDS: Furosemide 20 MG Tab PO SCH (08:12)
[2020-03-07] MEDS: Fluconazole 100 MG Tab PO SCH (08:13)
[2020-03-07] MEDS: Citalopram 10 MG Tab PO SCH (08:13)
[2020-03-07] MEDS: glipiZIDE 5 MG Tab.ER PO SCH (08:14)
[2020-03-07] MEDS: Losartan 100 MG Tab PO SCH (08:15)
[2020-03-07] MEDS: Docusate Sodium 100 MG Cap PO SCH (08:15)
[2020-03-07] MEDS: Pantoprazole 40 MG Vial IVPUSH SCH (08:16)
[2020-03-07] MEDS: RIFAMPIN 300 MG PO SCH ×2 (08:18→15:14)
[2020-03-07] MEDS: Enoxaparin 40 MG/0.4 ML Syringe SUBCUT SCH (08:21)
[2020-03-07] MEDS: Aspirin 81 MG Tab.EC PO SCH (08:21)
--- NOTE | 2020-03-07 11:49 | PCM.PN ---
- General Info Date of Service: 03/07/20 Subjective Update: 03/06/2020 Cherie Fletcher is a 59 yo female who was admitted to the hospital with dehydration and concerns of possible renal infarct to the right lower pole of kidney. Consulted with Kristy Bob prior to admission in which they were on diversion. Consulted with urology if anything further was needed. She had been having episodes of vomiting that has been getting worse the last couple of days. She continued to have episodes of emesis thru out the night and we switched to promethazine for nausea. She states she started to develop some right lower quadrant abdominal pain again and rates it a 4 out of 10. Staff did call with increased discomfort and we gave her 50mcg of Fentanyl intravenously. Tylenol was given prior without any relief. 03/07/2020 Cherie Sampson states she is feeling 100% better today from yesterday. Has been up to the bathroom without difficulty. States she had a good bowel movement today and denies any nausea or vomiting today. States she would really like to get home today if she could. States she was able to eat breakfast without any difficulty. States she was able to get a good night of sleep last night as well. Functional Status: Reports: Pain Controlled, Tolerating Diet, Ambulating. Denies: New Symptoms - Review of Systems General: Reports: No Symptoms HEENT: Reports: No Symptoms Pulmonary: Reports: No Symptoms Cardiovascular: Reports: No Symptoms Gastrointestinal: Reports: No Symptoms Genitourinary: Reports: No Symptoms Musculoskeletal: Reports: No Symptoms Skin: Reports: No Symptoms Neurological: Reports: No Symptoms Psychiatric: Reports: No Symptoms - Patient Data Vitals - Most Recent: Last Vital Signs Temp 98.4 F 03/07/20 04:00 Pulse 99 03/07/20 04:00 Resp 20 03/07/20 04:00 BP 132/76 03/07/20 08:15 Pulse Ox 97 03/07/20 04:00 Weight - Most Recent: 225 lb I&O - Last 24 Hours: Intake & Output 03/06/20 03/07/20 03/07/20 22:59 06:59 14:59 Intake Total 852 1442 Output Total 850 Balance 852 592 Lab Results Last 24 Hours: Laboratory Results - last 24 hr 03/06/20 03/07/20 03/07/20 Range/Units 16:58 06:55 06:55 WBC 15.7 H (5.0-10.0) 10^3/uL RBC 3.30 L (4.00-5.50) 10^6/uL Hgb 10.4 L (12.0-16.0) g/dL Hct 30.9 L (37.0-47.0) % MCV 93.6 (82.0-94.0) fL MCH 31.5 (27.0-32.0) pg MCHC 33.7 (33.0-38.0) g/dL RDW Coeff of Jacky 14.3 (11.0-15.0) % Plt Count 228 (150-400) 10^3/uL Neut % (Auto) 81.1 (35-85) % Lymph % (Auto) 9.6 L (10-55) % Wolfe % (Auto) 8.9 (0-16) % Eos % (Auto) 0.2 (0-5) % Baso % (Auto) 0.2 (0-3) % Neut # (Auto) 12.76 H (1.80-7.00) 10^3/uL Lymph # (Auto) 1.51 (1.00-4.80) 10^3/uL Wolfe # (Auto) 1.40 H (0.00-0.80) 10^3/uL Eos # (Auto) 0.03 (0.00-0.45) 10^3/uL Baso # (Auto) 0.03 10^3/uL Sodium 125 L (136-145) mEq/L Potassium 4.0 (3.5-5.0) mEq/L Chloride 92 L (98-106) mEq/L Carbon Dioxide 26 (21-32) mmol/L BUN 9 (7-18) mg/dL Creatinine 0.9 (0.6-1.0) mg/dL Est Cr Clr Drug Dosing 59.07 mL/min Estimated GFR (MDRD) > 60 (>=60) mL/min Glucose 148 H (75-99) mg/dL POC Glucose 159 H (75-105) mg/dl Lactic Acid (0.4-2.0) mmol/L Calcium 7.8 L (8.4-10.1) mg/dL Magnesium 1.5 L (1.8-2.4) mg/dL Total Bilirubin 0.9 (0.0-1.0) mg/dL AST 62 H (15-37) U/L ALT 8 L (12-78) U/L Alkaline Phosphatase 107 (46-116) U/L C-Reactive Protein 11.1 H (0.2-0.8) mg/dL Total Protein 7.3 (6.4-8.2) g/dL Albumin 2.1 L (3.4-5.0) g/dL 03/07/20 Range/Units 07:06 WBC (5.0-10.0) 10^3/uL RBC (4.00-5.50) 10^6/uL Hgb (12.0-16.0) g/dL Hct (37.0-47.0) % MCV (82.0-94.0) fL MCH (27.0-32.0) pg MCHC (33.0-38.0) g/dL RDW Coeff of Jacky (11.0-15.0) % Plt Count (150-400) 10^3/uL Neut % (Auto) (35-85) % Lymph % (Auto) (10-55) % Wolfe % (Auto) (0-16) % Eos % (Auto) (0-5) % Baso % (Auto) (0-3) % Neut # (Auto) (1.80-7.00) 10^3/uL Lymph # (Auto) (1.00-4.80) 10^3/uL Wolfe # (Auto) (0.00-0.80) 10^3/uL Eos # (Auto) (0.00-0.45) 10^3/uL Baso # (Auto) 10^3/uL Sodium (136-145) mEq/L Potassium (3.5-5.0) mEq/L Chloride (98-106) mEq/L Carbon Dioxide (21-32) mmol/L BUN (7-18) mg/dL Creatinine (0.6-1.0) mg/dL Est Cr Clr Drug Dosing mL/min Estimated GFR (MDRD) (>=60) mL/min Glucose (75-99) mg/dL POC Glucose (75-105) mg/dl Lactic Acid 1.0 (0.4-2.0) mmol/L Calcium (8.4-10.1) mg/dL Magnesium (1.8-2.4) mg/dL Total Bilirubin (0.0-1.0) mg/dL AST (15-37) U/L ALT (12-78) U/L Alkaline Phosphatase (46-116) U/L C-Reactive Protein (0.2-0.8) mg/dL Total Protein (6.4-8.2) g/dL Albumin (3.4-5.0) g/dL Ezekiel Results Last 24 Hours: Microbiology 03/06/20 11:07 Aerobic Blood Culture - Preliminary Blood - Venous NO GROWTH AFTER 1 DAY Anaerobic Blood Culture - Preliminary NO GROWTH AFTER 1 DAY 03/06/20 11:07 Aerobic Blood Culture - Preliminary Blood - Venous - Lab Draw NO GROWTH AFTER 1 DAY Anaerobic Blood Culture - Preliminary NO GROWTH AFTER 1 DAY 03/05/20 20:05 Urine Culture - Final Urine, Voided Med Orders - Current: Current Medications Acetaminophen (Tylenol) 650 mg PO Q4H PRN PRN Reason: Pain (Mild 1-3)/fever Last Admin: 03/06/20 03:42 Dose: 650 mg Documented by: Alprazolam (Xanax) 0.25 mg PO TID PRN PRN Reason: Anxiety Aspirin (Halfprin) 81 mg PO DAILY [facility] Last Admin: 03/07/20 08:21 Dose: 81 mg Documented by: Cefazolin Sodium (Ancef) 2 gm IVPUSH TID@0600,1400,2200 [facility] Last Admin: 03/07/20 06:00 Dose: 2 gm Documented by: Ceftriaxone Sodium (Rocephin) 1 gm IVPUSH Q24H [facility] Last Admin: 03/07/20 00:06 Dose: 1 gm Documented by: Citalopram Hydrobromide (Celexa) 20 mg PO DAILY [facility] Last Admin: 03/07/20 08:13 Dose: 20 mg Documented by: Docusate Sodium (Colace) 100 mg PO DAILY [facility] Last Admin: 03/07/20 08:15 Dose: 100 mg Documented by: Enoxaparin Sodium (Lovenox) 40 mg SUBCUT Q24H [facility] Last Admin: 03/07/20 08:21 Dose: 40 mg Documented by: Fentanyl (Sublimaze) 50 mcg IVPUSH Q6H PRN PRN Reason: Pain Fluconazole (Diflucan) 100 mg PO DAILY [facility] Last Admin: 03/07/20 08:13 Dose: 100 mg Documented by: Furosemide (Lasix) 20 mg PO DAILY [facility] Last Admin: 03/07/20 08:12 Dose: 20 mg Documented by: Glipizide (Glucotrol Xl) 5 mg PO DAILY [facility] Last Admin: 03/07/20 08:14 Dose: 5 mg Documented by: Heparin Sodium (Porcine) (Heparin Lock Flush 100 Units/Ml) 300 units FLUSH ASDIRECTED PRN PRN Reason: IV Use Last Admin: 03/06/20 10:25 Dose: 300 units Documented by: Hydrochlorothiazide (Hydrochlorothiazide) 12.5 mg PO DAILY [facility] Last Admin: 03/07/20 08:11 Dose: 12.5 mg Documented by: Sodium Chloride (Normal Saline) 1,000 mls @ 125 mls/hr IV ASDIRECTED [facility] Last Admin: 03/07/20 06:06 Dose: 125 mls/hr Documented by: Promethazine HCl 25 mg/ Sodium (Chloride) 101 mls @ 400 mls/hr IV Q4H PRN PRN Reason: nausea Last Admin: 03/06/20 09:19 Dose: 400 mls/hr Documented by: Magnesium Sulfate/Dextrose 2 (gm/ Premix) 200 mls @ 100 mls/hr IV ONETIME ONE Stop: 03/07/20 13:33 Losartan Potassium (Cozaar) 100 mg PO DAILY [facility] Last Admin: 03/07/20 08:15 Dose: 100 mg Documented by: Magnesium Oxide (Magnesium Oxide) 500 mg PO DAILY [facility] Last Admin: 03/07/20 08:12 Dose: 500 mg Documented by: Metoclopramide HCl (Reglan) 10 mg IVPUSH Q8H PRN PRN Reason: Nausea Last Admin: 03/06/20 16:03 Dose: 10 mg Documented by: Pantoprazole Sodium (Protonix Iv) 40 mg IVPUSH Q24H [facility] Last Admin: 03/07/20 08:16 Dose: 40 mg Documented by: Potassium Chloride (Klor-Con 10) 10 meq PO DAILY [facility] Last Admin: 03/07/20 08:12 Dose: 10 meq Documented by: Rifampin (Rifampin) 300 mg PO TID [facility] Last Admin: 03/07/20 08:18 Dose: 300 mg Documented by: Discontinued Medications Cefazolin Sodium (Ancef) 2 gm IVPUSH TID [facility] Last Admin: 03/06/20 00:56 Dose: Not Given Documented by: Fentanyl (Sublimaze) 50 mcg IVPUSH ONETIME ONE Stop: 03/06/20 06:44 Last Admin: 03/06/20 07:07 Dose: 50 mcg Documented by: Fentanyl (Sublimaze) Confirm Administered Dose 100 mcg .ROUTE .STK-MED ONE Stop: 03/06/20 07:14 Last Admin: 03/06/20 07:07 Dose: Not Given Documented by: Sodium Chloride (Normal Saline) 1,000 mls @ 200 mls/hr IV ASDIRECTED [facility] Last Admin: 03/05/20 21:12 Dose: 200 mls/hr Documented by: Magnesium Sulfate/Dextrose 2 (gm/ Premix) 200 mls @ 100 mls/hr IV ONETIME ONE Stop: 03/05/20 23:33 Last Admin: 03/05/20 21:39 Dose: 100 mls/hr Documented by: Iopamidol (Isovue-370 (76%)) 100 ml IVPUSH ONETIME ONE Stop: 03/05/20 20:46 Last Admin: 03/05/20 21:18 Dose: 100 ml Documented by: Morphine Sulfate (Morphine) 2 mg IVPUSH ONETIME ONE Stop: 03/06/20 02:19 Last Admin: 03/06/20 02:32 Dose: 2 mg Documented by: Non-Formulary Medication (Cefazolin [Ancef In D5w 2 Gm/100 Ml]) 2 gm IV TID [facility] Ondansetron HCl (Zofran) 4 mg IVPUSH STAT STA Stop: 03/05/20 19:51 Last Admin: 03/05/20 20:00 Dose: 4 mg Documented by: Ondansetron HCl (Zofran) 4 mg IVPUSH NOW STA Stop: 03/05/20 23:33 Last Admin: 03/06/20 00:34 Dose: 4 mg Documented by: Pantoprazole Sodium (Protonix Iv) 40 mg IVPUSH Q24H [facility] Last Admin: 03/06/20 00:56 Dose: Not Given Documented by: Rifampin (Rifampin) 300 mg PO TID [facility] Rifampin (Rifampin) 300 mg PO TID [facility] Last Admin: 03/06/20 09:49 Dose: Not Given Documented by: - Exam General: Alert, Oriented HEENT: Mucous Membr. Moist/[place] Neck: Supple Lungs: Clear to Auscultation, Normal Respiratory Effort Cardiovascular: Regular Rate, Regular Rhythm, Murmurs GI/Abdominal Exam: Normal Bowel Sounds, Soft, Non-Tender, No Organomegaly, No Distention, No Mass Extremities: Normal Inspection, No Pedal Edema Skin: Warm, Dry, Intact Neurological: No New Focal Deficit Psy/Mental Status: Alert, Normal Affect, Normal Mood Sepsis Event Note - Evaluation Sepsis Screening Result: No Definite Risk - Focused Exam Vital Signs: Vital Signs Temp Pulse Resp BP BP Pulse Ox 03/07/20 08:15 132/76 03/07/20 04:00 98.4 F 99 20 132/76 97 03/07/20 00:00 98.2 F 94 16 120/62 97 - Problem List & Annotations (1) Dehydration with hyponatremia SNOMED Code(s): 47687165 Code(s): E86.0 - DEHYDRATION; E87.1 - HYPO-OSMOLALITY AND HYPONATREMIA Status: Acute Current Visit: Yes (2) Hypomagnesemia SNOMED Code(s): 355742375 Code(s): E83.42 - HYPOMAGNESEMIA Status: Acute Current Visit: Yes (3) Renal infarct SNOMED Code(s): 26293329 Code(s): N28.0 - ISCHEMIA AND INFARCTION OF KIDNEY Status: Acute Current Visit: Yes - Problem List Review Problem List Initiated/Reviewed/Updated: Yes - My Orders Last 24 Hours: My Active Orders 03/06/20 11:07 CULTURE BLOOD [BC] Stat CULTURE BLOOD [BC] Stat 03/06/20 15:44 Metoclopramide [Reglan] 10 mg IVPUSH Q8H PRN 03/07/20 11:34 Magnesium Sulfate/D5W [Magnesium Sulfate in D5W 100 Premix] 2 gm Premix Bag 1 bag IV ONETIME - Assessment Assessment:: Dehydration 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 Pain was a 4 out of 10 and given 50mcg of Fentanyl. States she feels about the same as yesterday. With concerns of increased pain thru the night did consult with Dr. Lyles, hospitalist at [facility], in [place]. Discussed current treatment and concerns of possible renal infarct. Dr. Lyles didn't feel anything else needed to be done. 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 Recommended consulting with Dr. Mi ([facility]) where patient was transferred to and recently discharged. 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 Patient's labs today have overall improved. Creatinine remains stable [place] 1.1[place] [address] today. CRP improved. Magnesium corrected to 1.9 up from 1.2. Lactic acid improved to within normal range today. Reassessment of patient and current denies any discomfort. Continues to be nauseated but denies any recent emesis this morning. 03/07/2020 Cherie Sampson looks great today. laboratory work overall continues to improve daily. WBC is still slightly elevated but creatinine is down to 0.9 today. Magnesium is 1.5 today and will give 2gm intravenously. I did discuss discharge with Cherie Sampson but feel this isn't something that will happen today. Will possibly look at discharge tomorrow morning if labs are stable and she appears to be doing well. Will repeat labs tomorrow as well. Continue IV Rocephin as I feel this likely could have been secondary to pyelonephritis, which I did discuss with Dr. Pedroza. At discharge, will plan for oral Ceftin 500mg BID as well. Will continue with Diflucan for 1 week since yeast was found in initial urinalysis. Waiting on echo results from yesterday as well. patient verbalized understanding an in agreement.
[2020-03-07] MEDS ORDERED: Magnesium Sulfate/D5W 2 GM in Premix Bag 1 BAG IV ONE (12:00)
--- NOTE | 2020-03-07 14:30 | PCM.DCSUM1 ---
Discharge Summary - Hospital Course HPI Initial Comments: Cherie Fletcher is a 59 yo female who was admitted to the hospital with dehydration and concerns of possible renal infarct to the right lower pole of kidney vs pyelonephritis that was found on CT scan of the abdomen/pelvis. Patient had been recently discharged from [facility] secondary to endocarditis with a septic knee. Patient was scheduled to follow up with [facility] on March 22. Prior to being sent to [facility], patient had initially presented to our [facility] and transferred to [facility] in [place] at that time. [place] arraigned transfer to [facility]. At admission on the 02 of February, I did consult with Kristy Bob and they were on diversion. We did consult with urology, Dr. Bolanos at [facility], to see if anything further was needed. He didn't feel anything needed to be done acutely. Discussed being evaluated by interventional radiology. She had been having episodes of vomiting that had been getting worse the last couple of days. She continued to have episodes of emesis thru out the first night in our hospital and we switched to promethazine for nausea. With concerns of increased pain thru the first night we did consult with Dr. Lyles, hospitalist at [facility], in [place] yesterday. Discussed current treatment and concerns of possible renal infarct. Dr. Lyles didn't feel anything else needed to be done at that time. 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 Recommended consulting with Dr. Mi ([facility]) where patient was transferred to and recently discharged. We did consult with Dr. Ramires, report checker, at [facility] who kindly presented case to infectious disease staff. Recommend obtaining echocardiogram and getting blood cultures. Requested update today on patient status and labs. Today Cherie Sampson showed significant improved and felt 100% better from yesterday. She has been up to the bathroom without difficulty today. States she had a good bowel movement today and denies any nausea or vomiting today. States she would really like to get home today if she could. States she was able to eat breakfast without any difficulty. States she was able to get a good night of sleep last night as well. Consulted with Dr. 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 Dr. Ramires requested copy of CT scan and was sent. After review Dr. Ramires office did call us back and requested patient to be transferred to [facility] for further evaluation at this time. - Discharge Data Discharge Date: 03/07/20 Discharge Disposition: DC/Tfer to Acute Hospital 02 Condition: Undetermined - Referral to Home Health Primary Care Physician: Cherie Rehman PA-C - Discharge Diagnosis/Problem(s) (1) Dehydration with hyponatremia SNOMED Code(s): 86790371 ICD Code: E86.0 - DEHYDRATION; E87.1 - HYPO-OSMOLALITY AND HYPONATREMIA Status: Acute Current Visit: Yes (2) Hypomagnesemia SNOMED Code(s): 510108694 ICD Code: E83.42 - HYPOMAGNESEMIA Status: Acute Current Visit: Yes (3) Renal infarct SNOMED Code(s): 22999495 ICD Code: N28.0 - ISCHEMIA AND INFARCTION OF KIDNEY Status: Acute Current Visit: Yes - Patient Summary/Data Hospital Course: Patient has improved since admission and appears to be feeling well today. Labs overall have shown improvement since admission. Unfortunately, with concern of possible further septic emboli it was determined to transfer patient to [facility], with Dr. Ramires as accepting physician. - Patient Instructions Diet: NPO - Discharge Plan Home Medications: Home Meds ALPRAZolam [Xanax] 0.25 mg PO TID PRN 03/10/18 [History] Aspirin [Low Dose Aspirin EC] 81 mg PO DAILY 03/10/18 [History] Cholecalciferol (Vitamin D3) [Vitamin D3] 5,000 units PO DAILY 03/10/18 [History] Citalopram [Citalopram HBr] 20 mg PO DAILY 03/10/18 [History] Losartan/Hydrochlorothiazide [Losartan-HCTZ 100-12.5 MG] 1 tab PO DAILY 03/10/18 [History] Magnesium Gluconate [Magonate] 500 mg PO DAILY 03/10/18 [History] Hermon-3/DHA/Epa/Fish Oil [Hermon 3 500 Softgel] 1,000 mg PO BEDTIME 03/10/18 [History] metFORMIN [Glucophage] 1,000 mg PO BIDMEALS 03/10/18 [History] Vit No.129/Iron/FA [ One Daily Tablet] 1 ea PO DAILY 01/19/19 [History] Ubidecarenone [Coq10] 1 each PO BID 01/19/19 [History] Vit A/C/E AC/Znox/Cupric Oxide [Eye Vitamin-Minerals Tablet] 1 ea PO DAILY 01/19/19 [History] Docusate Sodium 100 mg PO DAILY 03/05/20 [History] Furosemide 20 mg PO DAILY 03/05/20 [History] Potassium Chloride [Klor-Con 10] 10 meq PO DAILY 03/05/20 [History] Rifampin [Rifadin] 300 mg PO TID 03/05/20 [History] ceFAZolin [Ancef in D5W 2 GM/100 ML] 2 gm IV TID 03/05/20 [History] glipiZIDE [Glucotrol XL] 5 mg PO DAILY 03/05/20 [History] Forms: ED Department Discharge - Discharge Summary/Plan Comment DC Time >30 min.: Yes Discharge Summary/Plan Comment: Patient will be transferred to [facility] with Dr. Ramires as accepting physician. Patient will transfer via fixed wing from [facility]. [facility] dispatch is aligning transfer at this time. I did discuss with Cherie Sampson Dr. Ramires concerns and why she is being transferred today. She verbalized complete understanding and was in agreement. I did call daughter, Coty, who I have been in contact with daily and gave update and she verbalized understanding as well. Risks and benefits of transfer was discussed into detail with [place]. Risks of transfer included worsening of condition, MVA/aircraft accident, . Benefits of transfer included higher level of care with interventions/specialists not available at our local facility. Risks of staying in local facility included potential worsening of condition, lack of specialist/interventions. Benefits of non-transfer included staying in familiar environment and close to home. Cherie Sampson verbalized understanding and in agreement with transfer. I would personally like to thank Dr. Ramires for his active participation and consultation in regards to Cherie Sampson's care. - General Info Date of Service: 03/07/20 Subjective Update: 03/06/2020 Cherie Fletcher is a 59 yo female who was admitted to the hospital with dehydration and concerns of possible renal infarct to the right lower pole of kidney. Consulted with Kristy Bob prior to admission in which they were on diversion. Consulted with urology if anything further was needed. She had been having episodes of vomiting that has been getting worse the last couple of days. She continued to have episodes of emesis thru out the night and we switched to promethazine for nausea. She states she started to develop some right lower quadrant abdominal pain again and rates it a 4 out of 10. Staff did call with increased discomfort and we gave her 50mcg of Fentanyl intravenously. Tylenol was given prior without any relief. 03/07/2020 Cherie Sampson states she is feeling 100% better today from yesterday. Has been up to the bathroom without difficulty. States she had a good bowel movement today and denies any nausea or vomiting today. States she would really like to get home today if she could. States she was able to eat breakfast without any difficulty. States she was able to get a good night of sleep last night as well. - Review of Systems General: Reports: No Symptoms HEENT: Reports: No Symptoms Pulmonary: Reports: No Symptoms Cardiovascular: Reports: No Symptoms Gastrointestinal: Reports: No Symptoms Genitourinary: Reports: No Symptoms Musculoskeletal: Reports: No Symptoms Skin: Reports: No Symptoms Neurological: Reports: No Symptoms Psychiatric: Reports: No Symptoms - Patient Data Vitals - Most Recent: Last Vital Signs Temp 98.4 F 03/07/20 04:00 Pulse 99 03/07/20 04:00 Resp 20 03/07/20 04:00 BP 132/76 03/07/20 08:15 Pulse Ox 97 03/07/20 04:00 Weight - Most Recent: 225 lb I&O - Last 24 hours: Intake & Output 03/06/20 03/07/20 03/07/20 22:59 06:59 14:59 Intake Total 852 1442 Output Total 850 Balance 852 592 Lab Results - Last 24 hrs: Laboratory Results - last 24 hr 03/06/20 03/07/20 03/07/20 Range/Units 16:58 06:55 06:55 WBC 15.7 H (5.0-10.0) 10^3/uL RBC 3.30 L (4.00-5.50) 10^6/uL Hgb 10.4 L (12.0-16.0) g/dL Hct 30.9 L (37.0-47.0) % MCV 93.6 (82.0-94.0) fL MCH 31.5 (27.0-32.0) pg MCHC 33.7 (33.0-38.0) g/dL RDW Coeff of Jacky 14.3 (11.0-15.0) % Plt Count 228 (150-400) 10^3/uL Neut % (Auto) 81.1 (35-85) % Lymph % (Auto) 9.6 L (10-55) % [place] % (Auto) 8.9 (0-16) % Eos % (Auto) 0.2 (0-5) % Baso % (Auto) 0.2 (0-3) % Neut # (Auto) 12.76 H (1.80-7.00) 10^3/uL Lymph # (Auto) 1.51 (1.00-4.80) 10^3/uL [place] # (Auto) 1.40 H (0.00-0.80) 10^3/uL Eos # (Auto) 0.03 (0.00-0.45) 10^3/uL Baso # (Auto) 0.03 10^3/uL Sodium 125 L (136-145) mEq/L Potassium 4.0 (3.5-5.0) mEq/L Chloride 92 L (98-106) mEq/L Carbon Dioxide 26 (21-32) mmol/L BUN 9 (7-18) mg/dL Creatinine 0.9 (0.6-1.0) mg/dL Est Cr Clr Drug Dosing 59.07 mL/min Estimated GFR (MDRD) > 60 (>=60) mL/min Glucose 148 H (75-99) mg/dL POC Glucose 159 H (75-105) mg/dl Lactic Acid (0.4-2.0) mmol/L Calcium 7.8 L (8.4-10.1) mg/dL Magnesium 1.5 L (1.8-2.4) mg/dL Total Bilirubin 0.9 (0.0-1.0) mg/dL AST 62 H (15-37) U/L ALT 8 L (12-78) U/L Alkaline Phosphatase 107 (46-116) U/L C-Reactive Protein 11.1 H (0.2-0.8) mg/dL Total Protein 7.3 (6.4-8.2) g/dL Albumin 2.1 L (3.4-5.0) g/dL 11/12/20 Range/Units 07:06 WBC (5.0-10.0) 10^3/uL RBC (4.00-5.50) 10^6/uL Hgb (12.0-16.0) g/dL Hct (37.0-47.0) % MCV (82.0-94.0) fL MCH (27.0-32.0) pg MCHC (33.0-38.0) g/dL RDW Coeff of Jacky (11.0-15.0) % Plt Count (150-400) 10^3/uL Neut % (Auto) (35-85) % Lymph % (Auto) (10-55) % [place] % (Auto) (0-16) % Eos % (Auto) (0-5) % Baso % (Auto) (0-3) % Neut # (Auto) (1.80-7.00) 10^3/uL Lymph # (Auto) (1.00-4.80) 10^3/uL [place] # (Auto) (0.00-0.80) 10^3/uL Eos # (Auto) (0.00-0.45) 10^3/uL Baso # (Auto) 10^3/uL Sodium (136-145) mEq/L Potassium (3.5-5.0) mEq/L Chloride (98-106) mEq/L Carbon Dioxide (21-32) mmol/L BUN (7-18) mg/dL Creatinine (0.6-1.0) mg/dL Est Cr Clr Drug Dosing mL/min Estimated GFR (MDRD) (>=60) mL/min Glucose (75-99) mg/dL POC Glucose (75-105) mg/dl Lactic Acid 1.0 (0.4-2.0) mmol/L Calcium (8.4-10.1) mg/dL Magnesium (1.8-2.4) mg/dL Total Bilirubin (0.0-1.0) mg/dL AST (15-37) U/L ALT (12-78) U/L Alkaline Phosphatase (46-116) U/L C-Reactive Protein (0.2-0.8) mg/dL Total Protein (6.4-8.2) g/dL Albumin (3.4-5.0) g/dL EUGENIO Results - Last 24 hrs: Microbiology 03/06/20 11:07 Aerobic Blood Culture - Preliminary Blood - Venous NO GROWTH AFTER 1 DAY Anaerobic Blood Culture - Preliminary NO GROWTH AFTER 1 DAY 03/06/20 11:07 Aerobic Blood Culture - Preliminary Blood - Venous - Lab Draw NO GROWTH AFTER 1 DAY Anaerobic Blood Culture - Preliminary NO GROWTH AFTER 1 DAY 03/05/20 20:05 Urine Culture - Final Urine, Voided Med Orders - Current: Current Medications Acetaminophen (Tylenol) 650 mg PO Q4H PRN PRN Reason: Pain (Mild 1-3)/fever Last Admin: 03/06/20 03:42 Dose: 650 mg Documented by: Alprazolam (Xanax) 0.25 mg PO TID PRN PRN Reason: Anxiety Aspirin (Halfprin) 81 mg PO DAILY [facility] Last Admin: 03/07/20 08:21 Dose: 81 mg Documented by: Cefazolin Sodium (Ancef) 2 gm IVPUSH TID@0600,1400,2200 [facility] Last Admin: 03/07/20 06:00 Dose: 2 gm Documented by: Ceftriaxone Sodium (Rocephin) 1 gm IVPUSH Q24H [facility] Last Admin: 03/07/20 00:06 Dose: 1 gm Documented by: Citalopram Hydrobromide (Celexa) 20 mg PO DAILY [facility] Last Admin: 03/07/20 08:13 Dose: 20 mg Documented by: Docusate Sodium (Colace) 100 mg PO DAILY [facility] Last Admin: 03/07/20 08:15 Dose: 100 mg Documented by: Enoxaparin Sodium (Lovenox) 40 mg SUBCUT Q24H [facility] Last Admin: 03/07/20 08:21 Dose: 40 mg Documented by: Fentanyl (Sublimaze) 50 mcg IVPUSH Q6H PRN PRN Reason: Pain Fluconazole (Diflucan) 100 mg PO DAILY [facility] Last Admin: 03/07/20 08:13 Dose: 100 mg Documented by: Furosemide (Lasix) 20 mg PO DAILY [facility] Last Admin: 03/07/20 08:12 Dose: 20 mg Documented by: Glipizide (Glucotrol Xl) 5 mg PO DAILY [facility] Last Admin: 03/07/20 08:14 Dose: 5 mg Documented by: Heparin Sodium (Porcine) (Heparin Lock Flush 100 Units/Ml) 300 units FLUSH ASDIRECTED PRN PRN Reason: IV Use Last Admin: 03/06/20 10:25 Dose: 300 units Documented by: Hydrochlorothiazide (Hydrochlorothiazide) 12.5 mg PO DAILY [facility] Last Admin: 03/07/20 08:11 Dose: 12.5 mg Documented by: Sodium Chloride (Normal Saline) 1,000 mls @ 125 mls/hr IV ASDIRECTED [facility] Last Admin: 03/07/20 06:06 Dose: 125 mls/hr Documented by: Promethazine HCl 25 mg/ Sodium (Chloride) 101 mls @ 400 mls/hr IV Q4H PRN PRN Reason: nausea Last Admin: 03/06/20 09:19 Dose: 400 mls/hr Documented by: Losartan Potassium (Cozaar) 100 mg PO DAILY [facility] Last Admin: 03/07/20 08:15 Dose: 100 mg Documented by: Magnesium Oxide (Magnesium Oxide) 500 mg PO BID [facility] Metoclopramide HCl (Reglan) 10 mg IVPUSH Q8H PRN PRN Reason: Nausea Last Admin: 03/06/20 16:03 Dose: 10 mg Documented by: Pantoprazole Sodium (Protonix Iv) 40 mg IVPUSH Q24H [facility] Last Admin: 03/07/20 08:16 Dose: 40 mg Documented by: Potassium Chloride (Klor-Con 10) 10 meq PO DAILY [facility] Last Admin: 03/07/20 08:12 Dose: 10 meq Documented by: Rifampin (Rifampin) 300 mg PO TID [facility] Last Admin: 03/07/20 08:18 Dose: 300 mg Documented by: Discontinued Medications Cefazolin Sodium (Ancef) 2 gm IVPUSH TID [facility] Last Admin: 03/06/20 00:56 Dose: Not Given Documented by: Fentanyl (Sublimaze) 50 mcg IVPUSH ONETIME ONE Stop: 03/06/20 06:44 Last Admin: 03/06/20 07:07 Dose: 50 mcg Documented by: Fentanyl (Sublimaze) Confirm Administered Dose 100 mcg .ROUTE .STK-MED ONE Stop: 03/06/20 07:14 Last Admin: 03/06/20 07:07 Dose: Not Given Documented by: Sodium Chloride (Normal Saline) 1,000 mls @ 200 mls/hr IV ASDIRECTED [facility] Last Admin: 03/05/20 21:12 Dose: 200 mls/hr Documented by: Magnesium Sulfate/Dextrose 2 (gm/ Premix) 200 mls @ 100 mls/hr IV ONETIME ONE Stop: 03/05/20 23:33 Last Admin: 03/05/20 21:39 Dose: 100 mls/hr Documented by: Magnesium Sulfate/Dextrose 2 (gm/ Premix) 200 mls @ 100 mls/hr IV ONETIME ONE Stop: 03/07/20 13:59 Last Admin: 03/07/20 12:50 Dose: 100 mls/hr Documented by: Iopamidol (Isovue-370 (76%)) 100 ml IVPUSH ONETIME ONE Stop: 03/05/20 20:46 Last Admin: 03/05/20 21:18 Dose: 100 ml Documented by: Magnesium Oxide (Magnesium Oxide) 500 mg PO DAILY [facility] Last Admin: 03/07/20 08:12 Dose: 500 mg Documented by: Morphine Sulfate (Morphine) 2 mg IVPUSH ONETIME ONE Stop: 03/06/20 02:19 Last Admin: 03/06/20 02:32 Dose: 2 mg Documented by: Non-Formulary Medication (Cefazolin [Ancef In D5w 2 Gm/100 Ml]) 2 gm IV TID [facility] Ondansetron HCl (Zofran) 4 mg IVPUSH STAT STA Stop: 03/05/20 19:51 Last Admin: 03/05/20 20:00 Dose: 4 mg Documented by: Ondansetron HCl (Zofran) 4 mg IVPUSH NOW STA Stop: 03/05/20 23:33 Last Admin: 03/06/20 00:34 Dose: 4 mg Documented by: Pantoprazole Sodium (Protonix Iv) 40 mg IVPUSH Q24H [facility] Last Admin: 03/06/20 00:56 Dose: Not Given Documented by: Rifampin (Rifampin) 300 mg PO TID [facility] Rifampin (Rifampin) 300 mg PO TID [facility] Last Admin: 03/06/20 09:49 Dose: Not Given Documented by: - Exam General: Reports: Alert, Oriented, Cooperative, No Acute Distress Neck: Reports: Supple Lungs: Reports: Clear to Auscultation, Normal Respiratory Effort Cardiovascular: Reports: Regular Rate, Regular Rhythm GI/Abdominal Exam: Normal Bowel Sounds, Soft, Non-Tender, No Distention Extremities: Normal Inspection, No Pedal Edema Skin: Reports: Warm, Dry, Intact Neurological: Reports: No New Focal Deficit Psy/Mental Status: Reports: Alert, Normal Affect, Normal Mood
== END 2020-03-07 16:00 | DRG 426 ==
LOC: CC.ED 19:31 → UNDOADMIN 22:26 → CC.MS 22:26
PROVIDERS: ADMIT Physician Assistant Medical; ATTEND Family Medicine
DX: E87.1 Hypo-osmolality and hyponatremia (principal); N28.0 Ischemia and infarction of kidney; E86.0 Dehydration; E83.42 Hypomagnesemia; I33.0 Acute and subacute infective endocarditis; H54.7 Unspecified visual loss; R01.1 Cardiac murmur, unspecified; I10 Essential (primary) hypertension; M19.90 Unspecified osteoarthritis, unspecified site; I35.0 Nonrheumatic aortic (valve) stenosis; F41.9 Anxiety disorder, unspecified; F32.9 Major depressive disorder, single episode, unspecified; E11.9 Type 2 diabetes mellitus without complications; D68.51 Activated protein C resistance; Z96.659 Presence of unspecified artificial knee joint; K63.5 Polyp of colon; Z87.891 Personal history of nicotine dependence; Z79.899 Other long term (current) drug therapy; Z79.82 Long term (current) use of aspirin; Z79.84 Long term (current) use of oral hypoglycemic drugs; Z79.2 Long term (current) use of antibiotics
CPT/HCPCS: 36415; 74177; 80053; 81001; 82962; 83605; 83735; 85025; 86140; 87040; 87086; 93306; 96365; 96375; 99285-25; A9270-GY; C9113; J0690; J0696; J1642; J1650; J2270; J2405; J2550; J2765; J3010; J3475; J7030; Q9967

== ENCOUNTER 2022-04-09 09:11 | Emergency (ER) | payer MEDICAID ==
[2022-04-09] MEDS: Acetaminophen 500 MG Tab PO ONE (09:44)
[2022-04-09 10:14] VITALS: BP 135/72; PULSE 89
== END 2022-04-09 10:45 | disposition home or self-care (01) ==
LOC: CC.ED 09:11
DX: J10.1 Influenza due to other identified influenza virus with other respiratory manifestations (principal); I10 Essential (primary) hypertension; E11.9 Type 2 diabetes mellitus without complications; Z79.82 Long term (current) use of aspirin; Z79.899 Other long term (current) drug therapy; Z79.84 Long term (current) use of oral hypoglycemic drugs; Z20.822 Contact with and (suspected) exposure to COVID-19
CPT/HCPCS: 36415; 71046; 80053; 85025; 85610; 86140; 87804; 87807; 99283; 99284; A9270-GY; U0002

== ENCOUNTER 2024-03-09 08:53 | Emergency (ER) | payer MEDICARE, OTHER ==
[2024-03-09 10:37] LABS: APPEARANCE,URINE CLEAR (CLEAR); BILIRUBIN,URINE NEGATIVE (NEGATIVE); COLOR,URINE YELLOW (YELLOW); GLUCOSE,URINE >=1000 mg/dL (NEGATIVE); KETONES,URINE 80 mg/dL (NEGATIVE); LEUKOCYTE ESTERASE,URINE NEGATIVE (NEGATIVE); NITRITE,URINE NEGATIVE (NEGATIVE); OCCULT BLOOD,URINE MODERATE (NEGATIVE); PH,URINE 5.5 (4.5-8.0); PROTEIN,URINE NEGATIVE (NEGATIVE); UROBILINOGEN,URINE 0.2 EU/dL (0.2-1.0)
[2024-03-09 10:42] LABS: BASOPHILS ABSOLUTE AUTO 0.01 10^3/uL (0.00-0.50); BASOPHILS PERCENT AUTO 0.1 % (0-1); HEMATOCRIT 46.4 % (37.0-47.0); HEMOGLOBIN 15.7 g/dL (12.0-16.0); IMMATURE GRAN ABSOLUTE AUTO 0.07 10^3/uL (0.00-0.49); IMMATURE GRAN PERCENT AUTO 0.7 % (0.0-4.9); LYMPHOCYTES PERCENT AUTO 4.1 % (24-44); MEAN CORPUSCULAR HEMOGLOBIN 32.2 pg (27.0-32.0); MEAN CORPUSCULAR HGB CONC 33.8 g/dL (32.0-36.0); MEAN CORPUSCULAR VOLUME 95.3 fL (83.0-97.0); MONOCYTES ABSOLUTE AUTO 0.54 10^3/uL (0.00-1.50); MONOCYTES PERCENT AUTO 5.5 % (0-10); NEUTROPHILS ABSOLUTE AUTO 8.84 x10^3/uL (1.80-8.00); NEUTROPHILS PERCENT AUTO 89.6 % (41-71); PLATELET COUNT,PLT 88 10^3/uL (150-400); RED BLOOD CELL COUNT 4.87 x10^6/uL (4.00-5.50); WHITE BLOOD CELL COUNT,WBC 9.9 10^3/uL (4.0-11.0)
[2024-03-09 10:45] LABS: BACTERIA,URINE FEW /HPF (NOT SEEN); EPITHELIAL CELLS,URINE MODERATE /HPF (NOT SEEN)
[2024-03-09 10:54] LABS: ALANINE AMINOTRANSFERASE,ALT 39 U/L (12-78); ALBUMIN 3.5 g/dL (3.4-5.0); ALKALINE PHOSPHATASE 147 U/L (46-116); ASPARTATE AMNIOTRANSFERASE,AST 29 U/L (15-37); BILIRUBIN TOTAL 1.3 mg/dL (0.0-1.0); BLOOD UREA NITROGEN,BUN 19 mg/dL (7-18); C-REACTIVE PROTEIN 8.88 mg/dL (<=0.50); CALCIUM 8.9 mg/dL (8.4-10.1); CARBON DIOXIDE,CO2 24 mmol/L (21-32); CHLORIDE,CL 96 mEq/L (98-106); CREATININE 1.1 mg/dL (0.6-1.0); GLUCOSE RANDOM 170 mg/dL (75-99); MAGNESIUM 1.8 mg/dL (1.8-2.4); POTASSIUM,K 3.8 mEq/L (3.5-5.0); PROTEIN TOTAL,TP 6.9 g/dL (6.4-8.2); SODIUM,NA 132 mEq/L (136-145)
[2024-03-09 11:02] LABS: ESTIMATED GFR 56 mL/min (>=60)
[2024-03-09] MEDS: Ondansetron 4 MG Tab.DIS PO ONE (11:28)
[2024-03-09] MEDS: Clopidogrel 75 MG Tab PO ONE (11:29)
== END 2024-03-09 11:40 | disposition home or self-care (01) ==
LOC: CC.ED 08:53
DX: E86.0 Dehydration (principal); E87.1 Hypo-osmolality and hyponatremia; I10 Essential (primary) hypertension; E78.00 Pure hypercholesterolemia, unspecified; E11.9 Type 2 diabetes mellitus without complications; Z87.891 Personal history of nicotine dependence; Z79.84 Long term (current) use of oral hypoglycemic drugs; Z79.899 Other long term (current) drug therapy; Z79.01 Long term (current) use of anticoagulants; Z79.82 Long term (current) use of aspirin
CPT/HCPCS: 36415; 80053; 81001; 82947; 83735; 85025; 86140; 87428-QW; 99284; A9270-GY

== ENCOUNTER 2024-03-10 02:05 | Emergency (ER) | payer MEDICARE, OTHER ==
[2024-03-10 02:21] LABS: BASOPHILS ABSOLUTE AUTO 0.01 10^3/uL (0.00-0.50); BASOPHILS PERCENT AUTO 0.1 % (0-1); HEMATOCRIT 43.5 % (37.0-47.0); HEMOGLOBIN 14.9 g/dL (12.0-16.0); IMMATURE GRAN PERCENT AUTO 0.9 % (0.0-4.9); LYMPHOCYTES ABSOLUTE AUTO 0.31 10^3/uL (0.60-5.00); LYMPHOCYTES PERCENT AUTO 2.9 % (24-44); MEAN CORPUSCULAR HEMOGLOBIN 32.4 pg (27.0-32.0); MEAN CORPUSCULAR HGB CONC 34.3 g/dL (32.0-36.0); MEAN CORPUSCULAR VOLUME 94.6 fL (83.0-97.0); MONOCYTES PERCENT AUTO 5.6 % (0-10); NEUTROPHILS ABSOLUTE AUTO 9.68 x10^3/uL (1.80-8.00); NEUTROPHILS PERCENT AUTO 90.5 % (41-71); PLATELET COUNT,PLT 89 10^3/uL (150-400); WHITE BLOOD CELL COUNT,WBC 10.7 10^3/uL (4.0-11.0)
[2024-03-10] MEDS: fentaNYL 50 MCG/ML SDV IVPUSH ONE ×2 (02:21→04:33)
[2024-03-10 02:36] LABS: INR 2.03 (0.92-1.18); PROTHROMBIN TIME 20.6 SEC (9.3-11.3)
[2024-03-10 02:40] LABS: ALANINE AMINOTRANSFERASE,ALT 42 U/L (12-78); ALBUMIN 3.2 g/dL (3.4-5.0); ALKALINE PHOSPHATASE 124 U/L (46-116); ASPARTATE AMNIOTRANSFERASE,AST 46 U/L (15-37); BILIRUBIN TOTAL 1.3 mg/dL (0.0-1.0); BLOOD UREA NITROGEN,BUN 18 mg/dL (7-18); CARBON DIOXIDE,CO2 23 mmol/L (21-32); CHLORIDE,CL 93 mEq/L (98-106); CREATININE 1.2 mg/dL (0.6-1.0); GLUCOSE RANDOM 142 mg/dL (75-99); MAGNESIUM 1.7 mg/dL (1.8-2.4); POTASSIUM,K 4.6 mEq/L (3.5-5.0); PROTEIN TOTAL,TP 6.5 g/dL (6.4-8.2); SODIUM,NA 127 mEq/L (136-145)
[2024-03-10 02:41] LABS: ESTIMATED GFR 50 mL/min (>=60)
[2024-03-10] MEDS: Diphtheria,Pertussis(Acell),Tetanus Vaccine 0.5 ML Syringe IM ONE (02:59)
[2024-03-10] MEDS: Sodium Chloride 0.9% 1,000 ML IV STA (03:00)
[2024-03-10 03:23] LABS: APPEARANCE,URINE CLEAR (CLEAR); BILIRUBIN,URINE NEGATIVE (NEGATIVE); COLOR,URINE YELLOW (YELLOW); GLUCOSE,URINE 500 mg/dL (NEGATIVE); KETONES,URINE 15 mg/dL (NEGATIVE); LEUKOCYTE ESTERASE,URINE NEGATIVE (NEGATIVE); NITRITE,URINE NEGATIVE (NEGATIVE); OCCULT BLOOD,URINE SMALL (NEGATIVE); PROTEIN,URINE NEGATIVE (NEGATIVE); UROBILINOGEN,URINE 0.2 EU/dL (0.2-1.0)
[2024-03-10 03:27] LABS: EPITHELIAL CELLS,URINE FEW /HPF (NOT SEEN); WBC,URINE 0-5 /HPF (0-5)
[2024-03-10 03:28] LABS: BACTERIA,URINE OCCASIONAL /HPF (NOT SEEN)
[2024-03-10] MEDS: Ondansetron 4 MG/2 ML SDV IVPUSH STA (04:41)
== END 2024-03-10 06:00 ==
LOC: CC.ED 02:05
DX: S72.144A Nondisplaced intertrochanteric fracture of right femur, initial encounter for closed fracture (principal); E87.1 Hypo-osmolality and hyponatremia; E78.00 Pure hypercholesterolemia, unspecified; I10 Essential (primary) hypertension; M19.90 Unspecified osteoarthritis, unspecified site; E11.9 Type 2 diabetes mellitus without complications; Z79.82 Long term (current) use of aspirin; Z79.84 Long term (current) use of oral hypoglycemic drugs; Z79.01 Long term (current) use of anticoagulants; Z79.899 Other long term (current) drug therapy; W18.30XA Fall on same level, unspecified, initial encounter
CPT/HCPCS: 36415; 51702; 70450; 80053; 81001; 83735; 84484; 85025; 85610; 90471; 90715; 93005; 96374; 96375; 96376; 99285-25; J2405; J3010; J7030

== ENCOUNTER 2024-03-16 10:59 | Inpatient (IN) | payer MEDICARE, OTHER ==
[2024-03-16] MEDS ORDERED: Magnesium Hydroxide 400 MG/5 ML Susp 30 ML Cup PO PRN (14:30)
[2024-03-16] MEDS ORDERED: Melatonin 3 MG Tab PO PRN (14:30)
[2024-03-16] MEDS: Potassium Chloride 10 MEQ Tab.ER PO SCH (18:16)
[2024-03-16] MEDS: Cefadroxil 500 MG Cap PO SCH (18:16)
[2024-03-16] MEDS: oxyCODONE 5 MG Tab PO PRN (18:23)
[2024-03-16] MEDS: Metoprolol Tartrate 25 MG Tab PO SCH (19:35)
[2024-03-16] MEDS: Acetaminophen 500 MG Tab PO SCH (19:35)
[2024-03-16] MEDS: atorvaSTATin 10 MG Tab PO SCH (19:36)
[2024-03-16] MEDS: Ondansetron 4 MG Tab.DIS PO PRN (22:15)
[2024-03-17] MEDS: Calcium Carbonate/Vitamin D3 1250 MG-5 MCG Tab PO SCH (07:34)
[2024-03-17] MEDS: Empagliflozin 10 MG Tab PO SCH (07:34)
[2024-03-17] MEDS: Furosemide 20 MG Tab PO SCH (07:35)
[2024-03-17] MEDS: Aspirin 81 MG Tab.EC PO SCH (07:36)
[2024-03-17] MEDS: Magnesium Oxide 400 MG Tab PO SCH (07:36)
[2024-03-17] MEDS: Losartan 25 MG Tab PO SCH (07:37)
[2024-03-17] MEDS: Beta-Carotene (Vitamin A) w/Vitamin C & E plus Minerals Tab PO SCH (07:37)
[2024-03-17] MEDS: Sennosides/Docusate Sodium 50-8.6 MG Tab PO PRN (07:44)
[2024-03-17 07:56] LABS: INR 3.75 (0.92-1.18)
[2024-03-17] MEDS: Polyethylene Glycol 3350 Powder 17 GM Packet PO PRN (17:49)
[2024-03-18] MEDS: Pantoprazole 40 MG Tab.CR PO SCH (06:44)
[2024-03-18 08:00] LABS: INR 2.52 (0.92-1.18); PROTHROMBIN TIME 25.3 SEC (9.3-11.3)
[2024-03-18] MEDS: Warfarin 5 MG Tab PO ONE (13:35)
[2024-03-19 08:07] LABS: INR 1.99 (0.92-1.18); PROTHROMBIN TIME 20.3 SEC (9.3-11.3)
[2024-03-19 08:19] LABS: ALBUMIN 2.4 g/dL (3.4-5.0); BILIRUBIN TOTAL 1.5 mg/dL (0.0-1.0); CALCIUM 8.7 mg/dL (8.4-10.1); CREATININE 0.8 mg/dL (0.6-1.0); EST CRCL DRUG DOSING (CG) 63.09 mL/min; POTASSIUM,K 5.1 mEq/L (3.5-5.0); PROTEIN TOTAL,TP 5.8 g/dL (6.4-8.2)
[2024-03-19] MEDS: Warfarin 5 MG Tab PO ONE (11:25)
[2024-03-20] MEDS ORDERED: [UNRECOGNIZED DRUG - REMARK] SCH (10:30)
[2024-03-20] MEDS: Warfarin 5 MG Tab PO ONE (12:09)
[2024-03-20] MEDS: Citalopram 10 MG Tab PO ONE (12:09)
[2024-03-20] MEDS: Citalopram 10 MG Tab PO SCH (12:10)
[2024-03-21] MEDS: Citalopram 10 MG Tab PO SCH (07:30)
[2024-03-21 08:02] LABS: INR 2.26 (0.92-1.18); PROTHROMBIN TIME 22.8 SEC (9.3-11.3)
[2024-03-21] MEDS: Acetaminophen 325 MG Tab PO PRN (11:56)
[2024-03-21] MEDS: Warfarin 5 MG Tab PO SCH (11:56)
[2024-03-22 08:14] LABS: ALBUMIN 2.7 g/dL (3.4-5.0); BILIRUBIN TOTAL 1.6 mg/dL (0.0-1.0); CALCIUM 8.8 mg/dL (8.4-10.1); CREATININE 0.9 mg/dL (0.6-1.0); EST CRCL DRUG DOSING (CG) 56.08 mL/min; POTASSIUM,K 4.2 mEq/L (3.5-5.0); PROTEIN TOTAL,TP 6.2 g/dL (6.4-8.2)
[2024-03-24 07:52] LABS: INR 2.56 (0.92-1.18); PROTHROMBIN TIME 25.7 SEC (9.3-11.3)
[2024-03-27] MEDS: Nystatin Topical Powder 15 GM Bottle TOP SCH (08:30)
[2024-03-28 07:50] LABS: INR 2.31 (0.92-1.18); PROTHROMBIN TIME 23.3 SEC (9.3-11.3)
== END 2024-03-29 15:50 | disposition home health service (06) | DRG 560 ==
LOC: CC.MS 13:52 → UNDOADMIN 13:52 → CC.MS 14:30
PROVIDERS: ADMIT Physician Assistant Medical; ATTEND Physician Assistant Medical
DX: S72.141D Displaced intertrochanteric fracture of right femur, subsequent encounter for closed fracture with routine healing (principal); I50.42 Chronic combined systolic (congestive) and diastolic (congestive) heart failure; E11.9 Type 2 diabetes mellitus without complications; E78.00 Pure hypercholesterolemia, unspecified; F41.9 Anxiety disorder, unspecified; F32.A Depression, unspecified; Z96.659 Presence of unspecified artificial knee joint; I11.0 Hypertensive heart disease with heart failure; Z98.890 Other specified postprocedural states; Z79.82 Long term (current) use of aspirin; Z79.899 Other long term (current) drug therapy; Z79.01 Long term (current) use of anticoagulants; Z95.0 Presence of cardiac pacemaker; Z86.0100 Personal history of colon polyps, unspecified; Z95.2 Presence of prosthetic heart valve; Z87.891 Personal history of nicotine dependence; X58.XXXD Exposure to other specified factors, subsequent encounter
CPT/HCPCS: 36415; 80053; 82947; 85610; 97110-GP; 97161-GP; 97530-GP; A6213; A9270-GY

== ENCOUNTER 2024-05-10 08:13 | Emergency (ER) | payer MEDICARE, OTHER ==
[2024-05-10 08:36] LABS: BASOPHILS ABSOLUTE AUTO 0.02 10^3/uL (0.00-0.50); BASOPHILS PERCENT AUTO 0.2 % (0-1); EOSINOPHILS ABSOLUTE AUTO 0.01 10^3/uL (0.00-1.50); EOSINOPHILS PERCENT AUTO 0.1 % (0-6); HEMATOCRIT 34.3 % (37.0-47.0); HEMOGLOBIN 11.1 g/dL (12.0-16.0); IMMATURE GRAN ABSOLUTE AUTO 0.07 10^3/uL (0.00-0.49); IMMATURE GRAN PERCENT AUTO 0.6 % (0.0-4.9); LYMPHOCYTES PERCENT AUTO 5.4 % (24-44); MEAN CORPUSCULAR HEMOGLOBIN 28.9 pg (27.0-32.0); MEAN CORPUSCULAR HGB CONC 32.4 g/dL (32.0-36.0); MEAN CORPUSCULAR VOLUME 89.3 fL (83.0-97.0); MONOCYTES ABSOLUTE AUTO 0.84 10^3/uL (0.00-1.50); MONOCYTES PERCENT AUTO 7.6 % (0-10); NEUTROPHILS ABSOLUTE AUTO 9.47 x10^3/uL (1.80-8.00); NEUTROPHILS PERCENT AUTO 86.1 % (41-71); PLATELET COUNT,PLT 199 10^3/uL (150-400); RED BLOOD CELL COUNT 3.84 x10^6/uL (4.00-5.50)
[2024-05-10 08:49] LABS: INR 3.07 (0.92-1.18); PROTHROMBIN TIME 30.6 SEC (9.3-11.3); PTT,PARTIAL THROMBOPLSTIN TIME 39.9 SEC (20.0-30.0)
[2024-05-10 08:54] LABS: ALBUMIN 2.8 g/dL (3.4-5.0); BILIRUBIN TOTAL 0.9 mg/dL (0.0-1.0); CREATININE 0.9 mg/dL (0.6-1.0); EST CRCL DRUG DOSING (CG) 53.81 mL/min; MAGNESIUM 1.9 mg/dL (1.8-2.4); POTASSIUM,K 4.4 mEq/L (3.5-5.0); PROTEIN TOTAL,TP 7.1 g/dL (6.4-8.2)
[2024-05-10 10:20] VITALS: BP 117/67; PULSE 83
== END 2024-05-10 10:50 ==
LOC: CC.ED 08:13
DX: I21.4 Non-ST elevation (NSTEMI) myocardial infarction (principal); I10 Essential (primary) hypertension; E78.00 Pure hypercholesterolemia, unspecified; Z95.0 Presence of cardiac pacemaker; E11.9 Type 2 diabetes mellitus without complications; Z88.6 Allergy status to analgesic agent; Z79.01 Long term (current) use of anticoagulants; Z79.899 Other long term (current) drug therapy
CPT/HCPCS: 36415; 71046; 80053; 83690; 83735; 84484; 85025; 85610; 85730; 93005; 99285

== ENCOUNTER 2024-06-04 09:35 | Inpatient (IN) | payer MEDICARE, OTHER ==
[2024-06-04 10:19] LABS: BASOPHILS ABSOLUTE AUTO 0.02 10^3/uL (0.00-0.50); BASOPHILS PERCENT AUTO 0.1 % (0-1); EOSINOPHILS ABSOLUTE AUTO 0.01 10^3/uL (0.00-1.50); EOSINOPHILS PERCENT AUTO 0.1 % (0-6); HEMATOCRIT 35.3 % (37.0-47.0); HEMOGLOBIN 11.1 g/dL (12.0-16.0); IMMATURE GRAN ABSOLUTE AUTO 0.32 10^3/uL (0.00-0.49); IMMATURE GRAN PERCENT AUTO 2.3 % (0.0-4.9); LYMPHOCYTES ABSOLUTE AUTO 0.91 10^3/uL (0.60-5.00); LYMPHOCYTES PERCENT AUTO 6.7 % (24-44); MEAN CORPUSCULAR HEMOGLOBIN 28.2 pg (27.0-32.0); MEAN CORPUSCULAR HGB CONC 31.4 g/dL (32.0-36.0); MEAN CORPUSCULAR VOLUME 89.6 fL (83.0-97.0); MONOCYTES ABSOLUTE AUTO 1.05 10^3/uL (0.00-1.50); MONOCYTES PERCENT AUTO 7.7 % (0-10); NEUTROPHILS ABSOLUTE AUTO 11.37 x10^3/uL (1.80-8.00); NEUTROPHILS PERCENT AUTO 83.1 % (41-71); PLATELET COUNT,PLT 189 10^3/uL (150-400); RED BLOOD CELL COUNT 3.94 x10^6/uL (4.00-5.50); WHITE BLOOD CELL COUNT,WBC 13.7 10^3/uL (4.0-11.0)
[2024-06-04 10:28] LABS: INR 8.66 (0.92-1.18)
[2024-06-04 10:40] LABS: ALANINE AMINOTRANSFERASE,ALT 114 U/L (12-78); ALKALINE PHOSPHATASE 176 U/L (46-116); ASPARTATE AMNIOTRANSFERASE,AST 50 U/L (15-37); BILIRUBIN TOTAL 2.1 mg/dL (0.0-1.0); BLOOD UREA NITROGEN,BUN 23 mg/dL (7-18); C-REACTIVE PROTEIN 5.19 mg/dL (<=0.50); CARBON DIOXIDE,CO2 19 mmol/L (21-32); CHLORIDE,CL 97 mEq/L (98-106); CREATININE 1.2 mg/dL (0.6-1.0); GLUCOSE RANDOM 189 mg/dL (75-99); LIPASE 47 U/L (16-77); MAGNESIUM 1.8 mg/dL (1.8-2.4); POTASSIUM,K 4.8 mEq/L (3.5-5.0); PRO B-TYPE NATRIUR PEPT,BNPPRO 17247 pg/mL (0-1000); PROTEIN TOTAL,TP 6.7 g/dL (6.4-8.2); SODIUM,NA 129 mEq/L (136-145)
[2024-06-04 10:41] LABS: ESTIMATED GFR 50 mL/min (>=60)
[2024-06-04 10:54] LABS: APPEARANCE,URINE CLEAR (CLEAR); BILIRUBIN,URINE NEGATIVE (NEGATIVE); COLOR,URINE YELLOW (YELLOW); GLUCOSE,URINE 500 mg/dL (NEGATIVE); KETONES,URINE NEGATIVE (NEGATIVE); LEUKOCYTE ESTERASE,URINE TRACE (NEGATIVE); NITRITE,URINE NEGATIVE (NEGATIVE); OCCULT BLOOD,URINE LARGE (NEGATIVE); PH,URINE 5.5 (4.5-8.0); PROTEIN,URINE NEGATIVE (NEGATIVE)
[2024-06-04 11:00] LABS: BACTERIA,URINE OCCASIONAL /HPF (NOT SEEN); EPITHELIAL CELLS,URINE FEW /HPF (NOT SEEN); MUCUS,URINE FEW /HPF (NOT SEEN); WBC,URINE 0-5 /HPF (0-5)
[2024-06-04] MEDS: Iopamidol 755 Mg/ML 100 ML Bottle IVPUSH ONE (11:28)
[2024-06-04] MEDS ORDERED: Iopamidol 755 Mg/ML 100 ML Bottle IVPUSH ONE (11:28)
[2024-06-04] MEDS: Furosemide 40 MG/4 ML VIAL IVPUSH ONE (11:29)
[2024-06-04] MEDS: Sodium Chloride 0.9% 500 ML IV SCH ×2 (11:30→17:28)
[2024-06-04] MEDS ORDERED: Polyethylene Glycol 3350 Powder 17 GM Packet PO PRN (14:45)
[2024-06-04] MEDS ORDERED: Ondansetron 4 MG Tab.DIS PO PRN (14:45)
[2024-06-04] MEDS ORDERED: Docusate Sodium 100 MG Cap PO PRN (14:45)
[2024-06-04] MEDS ORDERED: Ondansetron 4 MG/2 ML SDV IV PRN (14:45)
[2024-06-04] MEDS: Metoprolol Tartrate 25 MG Tab PO SCH (15:36)
[2024-06-04] MEDS: Cefadroxil 500 MG Cap PO SCH (15:37)
[2024-06-04] MEDS: Furosemide 40 MG/4 ML VIAL IVPUSH SCH (15:37)
[2024-06-04] MEDS: Potassium Chloride 20 MEQ Tab.ER PO SCH (19:22)
[2024-06-04] MEDS ORDERED: MAGNESIUM CHLORIDE 71.5 MG PO SCH (20:00)
[2024-06-05] MEDS: Pantoprazole 40 MG Tab.CR PO SCH (06:04)
[2024-06-05] MEDS: Citalopram 10 MG Tab PO SCH (07:28)
[2024-06-05] MEDS: Aspirin 81 MG Tab.EC PO SCH (07:29)
[2024-06-05] MEDS: Empagliflozin 10 MG Tab PO SCH (07:29)
[2024-06-05] MEDS: Losartan 25 MG Tab PO SCH (07:29)
[2024-06-05] MEDS: Cholecalciferol (Vitamin D3) 5,000 UNIT Tab PO SCH (07:31)
[2024-06-05 07:37] LABS: ALBUMIN 2.6 g/dL (3.4-5.0); BILIRUBIN TOTAL 1.4 mg/dL (0.0-1.0); CALCIUM 8.8 mg/dL (8.4-10.1); EST CRCL DRUG DOSING (CG) 48.43 mL/min; MAGNESIUM 1.8 mg/dL (1.8-2.4); POTASSIUM,K 3.8 mEq/L (3.5-5.0); PROTEIN TOTAL,TP 6.2 g/dL (6.4-8.2)
[2024-06-05 07:38] LABS: BASOPHILS ABSOLUTE AUTO 0.03 10^3/uL (0.00-0.50); BASOPHILS PERCENT AUTO 0.3 % (0-1); EOSINOPHILS ABSOLUTE AUTO 0.03 10^3/uL (0.00-1.50); EOSINOPHILS PERCENT AUTO 0.3 % (0-6); HEMATOCRIT 34.2 % (37.0-47.0); HEMOGLOBIN 10.8 g/dL (12.0-16.0); IMMATURE GRAN ABSOLUTE AUTO 0.17 10^3/uL (0.00-0.49); IMMATURE GRAN PERCENT AUTO 1.7 % (0.0-4.9); LYMPHOCYTES ABSOLUTE AUTO 0.89 10^3/uL (0.60-5.00); LYMPHOCYTES PERCENT AUTO 8.7 % (24-44); MEAN CORPUSCULAR HEMOGLOBIN 27.9 pg (27.0-32.0); MEAN CORPUSCULAR HGB CONC 31.6 g/dL (32.0-36.0); MEAN CORPUSCULAR VOLUME 88.4 fL (83.0-97.0); MONOCYTES ABSOLUTE AUTO 0.86 10^3/uL (0.00-1.50); MONOCYTES PERCENT AUTO 8.4 % (0-10); NEUTROPHILS ABSOLUTE AUTO 8.28 x10^3/uL (1.80-8.00); NEUTROPHILS PERCENT AUTO 80.6 % (41-71); PLATELET COUNT,PLT 175 10^3/uL (150-400); RED BLOOD CELL COUNT 3.87 x10^6/uL (4.00-5.50); WHITE BLOOD CELL COUNT,WBC 10.3 10^3/uL (4.0-11.0)
[2024-06-05 07:56] LABS: INR 7.72 (0.92-1.18); PROTHROMBIN TIME 76.5 SEC (9.3-11.3)
[2024-06-05] MEDS: Magnesium Oxide 400 MG Tab PO ONE (11:56)
[2024-06-05] MEDS ORDERED: [UNRECOGNIZED DRUG - REMARK] SCH (14:45)
[2024-06-06 07:48] LABS: BASOPHILS ABSOLUTE AUTO 0.01 10^3/uL (0.00-0.50); BASOPHILS PERCENT AUTO 0.1 % (0-1); EOSINOPHILS ABSOLUTE AUTO 0.03 10^3/uL (0.00-1.50); EOSINOPHILS PERCENT AUTO 0.3 % (0-6); HEMATOCRIT 33.9 % (37.0-47.0); HEMOGLOBIN 10.8 g/dL (12.0-16.0); IMMATURE GRAN ABSOLUTE AUTO 0.18 10^3/uL (0.00-0.49); IMMATURE GRAN PERCENT AUTO 1.9 % (0.0-4.9); LYMPHOCYTES ABSOLUTE AUTO 0.92 10^3/uL (0.60-5.00); LYMPHOCYTES PERCENT AUTO 9.6 % (24-44); MEAN CORPUSCULAR HEMOGLOBIN 28.1 pg (27.0-32.0); MEAN CORPUSCULAR HGB CONC 31.9 g/dL (32.0-36.0); MEAN CORPUSCULAR VOLUME 88.3 fL (83.0-97.0); MONOCYTES ABSOLUTE AUTO 0.89 10^3/uL (0.00-1.50); MONOCYTES PERCENT AUTO 9.3 % (0-10); NEUTROPHILS ABSOLUTE AUTO 7.58 x10^3/uL (1.80-8.00); NEUTROPHILS PERCENT AUTO 78.8 % (41-71); PLATELET COUNT,PLT 169 10^3/uL (150-400); RED BLOOD CELL COUNT 3.84 x10^6/uL (4.00-5.50); WHITE BLOOD CELL COUNT,WBC 9.6 10^3/uL (4.0-11.0)
[2024-06-06 08:17] LABS: PROTHROMBIN TIME 58.9 SEC (9.3-11.3)
[2024-06-06 08:30] LABS: ALBUMIN 2.7 g/dL (3.4-5.0); BILIRUBIN TOTAL 1.6 mg/dL (0.0-1.0); CALCIUM 8.6 mg/dL (8.4-10.1); CREATININE 1.1 mg/dL (0.6-1.0); EST CRCL DRUG DOSING (CG) 44.03 mL/min; POTASSIUM,K 3.7 mEq/L (3.5-5.0); PROTEIN TOTAL,TP 6.3 g/dL (6.4-8.2)
[2024-06-06 08:35] LABS: INR 6.12 (0.92-1.18)
[2024-06-06] MEDS: Albumin Human 25 GM in Premix Bag 1 BAG IV ONE (12:29)
[2024-06-06] MEDS: Nystatin Topical Powder 15 GM Bottle TOP SCH (23:28)
[2024-06-07 07:53] LABS: BASOPHILS ABSOLUTE AUTO 0.02 10^3/uL (0.00-0.50); BASOPHILS PERCENT AUTO 0.2 % (0-1); EOSINOPHILS ABSOLUTE AUTO 0.07 10^3/uL (0.00-1.50); EOSINOPHILS PERCENT AUTO 0.8 % (0-6); HEMATOCRIT 34.5 % (37.0-47.0); HEMOGLOBIN 10.9 g/dL (12.0-16.0); IMMATURE GRAN ABSOLUTE AUTO 0.17 10^3/uL (0.00-0.49); IMMATURE GRAN PERCENT AUTO 1.8 % (0.0-4.9); LYMPHOCYTES ABSOLUTE AUTO 1.01 10^3/uL (0.60-5.00); LYMPHOCYTES PERCENT AUTO 10.9 % (24-44); MEAN CORPUSCULAR HEMOGLOBIN 27.9 pg (27.0-32.0); MEAN CORPUSCULAR HGB CONC 31.6 g/dL (32.0-36.0); MEAN CORPUSCULAR VOLUME 88.2 fL (83.0-97.0); MONOCYTES ABSOLUTE AUTO 1.01 10^3/uL (0.00-1.50); MONOCYTES PERCENT AUTO 10.9 % (0-10); NEUTROPHILS ABSOLUTE AUTO 6.99 x10^3/uL (1.80-8.00); NEUTROPHILS PERCENT AUTO 75.4 % (41-71); PLATELET COUNT,PLT 159 10^3/uL (150-400); RED BLOOD CELL COUNT 3.91 x10^6/uL (4.00-5.50); WHITE BLOOD CELL COUNT,WBC 9.3 10^3/uL (4.0-11.0)
[2024-06-07 08:33] LABS: ALBUMIN 2.9 g/dL (3.4-5.0); BILIRUBIN TOTAL 1.9 mg/dL (0.0-1.0); CALCIUM 8.8 mg/dL (8.4-10.1); CREATININE 1.2 mg/dL (0.6-1.0); EST CRCL DRUG DOSING (CG) 40.36 mL/min; MAGNESIUM 2.1 mg/dL (1.8-2.4); POTASSIUM,K 4.1 mEq/L (3.5-5.0); PROTEIN TOTAL,TP 6.4 g/dL (6.4-8.2)
[2024-06-07 09:47] LABS: PROTHROMBIN TIME 39.9 SEC (9.3-11.3)
[2024-06-07 10:11] LABS: INR 4.06 (0.92-1.18)
[2024-06-07] MEDS: Warfarin 2.5 MG Tab PO SCH (12:52)
== END 2024-06-07 14:01 | disposition swing bed (61) | DRG 292 ==
LOC: CC.ED 09:35 → CC.MS 13:12 → UNDOADMIN 14:38
PROVIDERS: ADMIT Nurse Practitioner; ATTEND Nurse Practitioner
DX: I11.0 Hypertensive heart disease with heart failure (principal); E87.1 Hypo-osmolality and hyponatremia; I50.9 Heart failure, unspecified; R74.8 Abnormal levels of other serum enzymes; H54.7 Unspecified visual loss; E78.00 Pure hypercholesterolemia, unspecified; M19.90 Unspecified osteoarthritis, unspecified site; F41.9 Anxiety disorder, unspecified; Z79.84 Long term (current) use of oral hypoglycemic drugs; F32.A Depression, unspecified; E11.9 Type 2 diabetes mellitus without complications; Z96.659 Presence of unspecified artificial knee joint; D72.829 Elevated white blood cell count, unspecified; R74.01 Elevation of levels of liver transaminase levels; R79.1 Abnormal coagulation profile; Z79.82 Long term (current) use of aspirin; Z79.899 Other long term (current) drug therapy; Z79.01 Long term (current) use of anticoagulants; Z95.0 Presence of cardiac pacemaker; Z86.0100 Personal history of colon polyps, unspecified; Z95.2 Presence of prosthetic heart valve; Z98.890 Other specified postprocedural states
CPT/HCPCS: 36415; 71046; 74177; 80053; 81001; 83605; 83690; 83735; 83880; 84484; 85025; 85610; 86140; 87040; 87428-QW; 93005; 93010; 96361; 96374; 97161-GP; 99223; 99232; 99233; 99238; 99285-25; A9270-GY; J1940; J7040; P9047; Q9967

== ENCOUNTER 2024-06-07 14:09 | Inpatient (IN) | payer MEDICARE, OTHER ==
[2024-06-07] MEDS ORDERED: Polyethylene Glycol 3350 Powder 17 GM Packet PO PRN (14:24)
[2024-06-07] MEDS: Furosemide 40 MG Tab PO SCH (16:22)
[2024-06-07] MEDS: Nystatin Topical Powder 15 GM Bottle TOP SCH (19:33)
[2024-06-07] MEDS: Cefadroxil 500 MG Cap PO SCH (19:34)
[2024-06-07] MEDS: Potassium Chloride 20 MEQ Tab.ER PO SCH (19:34)
[2024-06-07] MEDS: Metoprolol Tartrate 25 MG Tab PO SCH (20:15)
[2024-06-07] MEDS: Melatonin 3 MG Tab PO PRN (23:13)
[2024-06-08] MEDS: Ondansetron 4 MG Tab.DIS PO PRN (04:44)
[2024-06-08] MEDS: Empagliflozin 10 MG Tab PO SCH (07:50)
[2024-06-08] MEDS: Citalopram 10 MG Tab PO SCH (07:52)
[2024-06-08] MEDS: Losartan 25 MG Tab PO SCH (07:53)
[2024-06-08] MEDS: Pantoprazole 40 MG Tab.CR PO SCH (07:53)
[2024-06-08] MEDS: Aspirin 81 MG Tab.EC PO SCH (07:54)
[2024-06-08] MEDS: Cholecalciferol (Vitamin D3) 5,000 UNIT Tab PO SCH (07:54)
[2024-06-08 07:57] LABS: INR 3.15 (0.92-1.18); PROTHROMBIN TIME 31.3 SEC (9.3-11.3)
[2024-06-08] MEDS: Warfarin 2.5 MG Tab PO SCH (11:52)
[2024-06-08] MEDS: Docusate Sodium 100 MG Cap PO PRN (19:41)
[2024-06-09 07:55] LABS: INR 2.5 (0.92-1.18); PROTHROMBIN TIME 25.1 SEC (9.3-11.3)
[2024-06-09] MEDS: Warfarin 5 MG Tab PO SCH (12:04)
== END 2024-06-09 16:25 | disposition home health service (06) | DRG 948 ==
LOC: CC.MS 14:09
PROVIDERS: ADMIT Nurse Practitioner; ATTEND Nurse Practitioner
DX: R53.1 Weakness (principal); I50.9 Heart failure, unspecified; D72.829 Elevated white blood cell count, unspecified; R74.8 Abnormal levels of other serum enzymes; R79.1 Abnormal coagulation profile; Z79.899 Other long term (current) drug therapy
CPT/HCPCS: 36415; 85610; 97110-GP; A9270-GY

== ENCOUNTER 2024-06-27 11:47 | Inpatient (IN) | payer MEDICARE, OTHER ==
[2024-06-27 12:30] LABS: POTASSIUM,K 3.7 mEq/L (3.5-5.0)
[2024-06-27 12:31] LABS: CALCIUM 8.4 mg/dL (8.4-10.1); EST CRCL DRUG DOSING (CG) 49.45 mL/min
[2024-06-27 12:34] LABS: BASOPHILS ABSOLUTE AUTO 0.01 10^3/uL (0.00-0.50); BASOPHILS PERCENT AUTO 0.2 % (0-1); EOSINOPHILS ABSOLUTE AUTO 0.02 10^3/uL (0.00-1.50); EOSINOPHILS PERCENT AUTO 0.3 % (0-6); HEMATOCRIT 31.8 % (37.0-47.0); IMMATURE GRAN PERCENT AUTO 1.6 % (0.0-4.9); LYMPHOCYTES ABSOLUTE AUTO 0.54 10^3/uL (0.60-5.00); LYMPHOCYTES PERCENT AUTO 8.5 % (24-44); MEAN CORPUSCULAR HGB CONC 31.4 g/dL (32.0-36.0); MEAN CORPUSCULAR VOLUME 89.1 fL (83.0-97.0); MONOCYTES ABSOLUTE AUTO 0.48 10^3/uL (0.00-1.50); MONOCYTES PERCENT AUTO 7.5 % (0-10); NEUTROPHILS ABSOLUTE AUTO 5.21 x10^3/uL (1.80-8.00); NEUTROPHILS PERCENT AUTO 81.9 % (41-71); PLATELET COUNT,PLT 122 10^3/uL (150-400); RED BLOOD CELL COUNT 3.57 x10^6/uL (4.00-5.50); WHITE BLOOD CELL COUNT,WBC 6.4 10^3/uL (4.0-11.0)
[2024-06-27] MEDS ORDERED: Ondansetron 4 MG/2 ML SDV IV PRN (12:49)
[2024-06-27] MEDS ORDERED: Acetaminophen 325 MG Tab PO PRN (12:49)
[2024-06-27] MEDS ORDERED: Ondansetron 4 MG Tab.DIS PO PRN (12:49)
[2024-06-27] MEDS ORDERED: Polyethylene Glycol 3350 Powder 17 GM Packet PO PRN (12:49)
[2024-06-27] MEDS ORDERED: Docusate Sodium 100 MG Cap PO PRN (12:49)
[2024-06-27 12:50] LABS: ALBUMIN 2.6 g/dL (3.4-5.0); BILIRUBIN TOTAL 2.7 mg/dL (0.0-1.0)
[2024-06-27] MEDS ORDERED: Furosemide 40 MG/4 ML VIAL IVPUSH ONE ×3 (13:22→15:10)
[2024-06-27] MEDS: Furosemide 100 MG/10 ML SDV IVPUSH ONE ×3 (13:22→15:10)
[2024-06-27 13:28] LABS: APPEARANCE,URINE CLEAR (CLEAR); BILIRUBIN,URINE NEGATIVE (NEGATIVE); COLOR,URINE DARK YELLOW (YELLOW); GLUCOSE,URINE 500 mg/dL (NEGATIVE); KETONES,URINE NEGATIVE (NEGATIVE); LEUKOCYTE ESTERASE,URINE NEGATIVE (NEGATIVE); NITRITE,URINE NEGATIVE (NEGATIVE); OCCULT BLOOD,URINE LARGE (NEGATIVE); PROTEIN,URINE NEGATIVE (NEGATIVE); UROBILINOGEN,URINE 0.2 EU/dL (0.2-1.0)
[2024-06-27 13:38] LABS: BACTERIA,URINE FEW /HPF (NOT SEEN); RBC,URINE >100 /HPF (0-5); SQUAMOUS EPITHELIAL CELLS,UR FEW /HPF (NOT SEEN)
[2024-06-27 14:07] LABS: INR > 10.00 (0.92-1.18); PROTHROMBIN TIME > 100.0 SEC (9.3-11.3)
[2024-06-27] MEDS: DOPamine/Dextrose 5%-Water 400 MG/250 ML BAG IV SCH (14:07)
[2024-06-27] MEDS: Phytonadione 5 MG Tab PO ONE (14:18)
== END 2024-06-27 15:29 | DRG 293 ==
LOC: CC.MS 11:47 → UNDOADMIN 11:47 → CC.MS 12:49
PROVIDERS: ADMIT Nurse Practitioner; ATTEND Nurse Practitioner
DX: I11.0 Hypertensive heart disease with heart failure (principal); I50.9 Heart failure, unspecified; E78.00 Pure hypercholesterolemia, unspecified; H26.9 Unspecified cataract; H54.7 Unspecified visual loss; M19.90 Unspecified osteoarthritis, unspecified site; Z96.659 Presence of unspecified artificial knee joint; F32.A Depression, unspecified; F41.9 Anxiety disorder, unspecified; E11.9 Type 2 diabetes mellitus without complications; Z79.01 Long term (current) use of anticoagulants; Z95.2 Presence of prosthetic heart valve; Z79.82 Long term (current) use of aspirin; Z79.899 Other long term (current) drug therapy; Z79.02 Long term (current) use of antithrombotics/antiplatelets; Z95.0 Presence of cardiac pacemaker; Z98.890 Other specified postprocedural states
CPT/HCPCS: 36415; 51702; 71045; 80053; 81001; 83605; 83735; 83880; 84484; 85025; 85610; 87040; 87077; 87186; 93005; 93010; 99236; A9270-GY; J1265; J1940